=== PATIENT | male | born 1940 | race Caucasian/White ===

== ENCOUNTER 2024-01-26 08:51 | Inpatient (IN) | payer OTHER, SELFPAY ==
--- NOTE | 2023-12-21 13:19 | CM ---
Patient is scheduled for an elective L TKR on 01/26/24. Spoke with patient prior to surgery via telephone. Introduced role of Orthopedic Navigator. Patient reports that he lives with his in a two story home. There are six (3-3) steps to enter
and a flight of steps to the second floor. He currently functions independently and occasionally uses a cane. He also has a rolling walker, commode and built in shower seat. He has had VN services. PCP is Dr. Dread Arango.
Discussed orthopedic program and post surgical plans. Reviewed anticipated length of stay and that goal is for him to return home at discharge. Also reviewed outpatient PT. Patient is in agreement with tentative plan and will go directly to
outpatient PT at [facility]. He will have support from his when he goes home.
Patient will complete online education.
Plan: Orthopedic Navigator will remain available to assist with the care of patient and will reassess discharge needs after surgery.
[2024-01-02 14:03] VITALS: BMI 33.5
[2024-01-02 14:42] LABS: Hematocrit 37.7 % (39.0-52.0); Hemoglobin 12.4 g/dL (13.0-18.0); Mean Corp Hgb Conc. 32.9 g/dL (33.0-37.0); Mean Corpuscular Hgb 33.4 pg (27.0-31.0); Mean Corpuscular Volume 101.6 fL (80.0-94.0); Mean Platelet Volume 9.7 fL (7.4-10.4); Platelet Count 162 10^3/uL (130-400); Red Blood Cell Count 3.71 10^6/uL (4.70-6.10); Red Cell Dist. Width 13.8 % (11.5-14.5); White Blood Cell Count 7.8 10^3/uL (4.8-10.8)
[2024-01-02 14:55] LABS: ALT (SGPT) 29 U/L (0-50); AST (SGOT) 32 U/L (17-59); Albumin 4.4 g/dl (3.5-5.0); Alkaline Phosphatase 60 U/L (38-126); Blood Urea Nitrogen 27 mg/dl (9-20); Calcium 10.2 mg/dl (8.4-10.2); Carbon Dioxide 24 mmol/L (22-30); Chloride 104 mmol/L (98-107); Estimated Creatinine Clearance 62 ml/min; Glucose 90 mg/dl (70-99); Potassium 4.6 mmol/L (3.5-5.1); Sodium 139 mmol/L (135-145); Total Bilirubin 0.5 mg/dl (0.2-1.3); Total Protein 7.3 g/dl (6.3-8.2); eGFR > 60.00
[2024-01-02 15:23] VITALS: BMI 33.5
[2024-01-03 08:56] LABS: Glycohemoglobin (HgbA1c) 6.1 % (4.0-5.6)
[2024-01-26] VITALS (34 sets, daily range): BP systolic 66–114; BP diastolic 38–69; PULSE 60; O2SAT 96; BMI 33.5
[2024-01-26] MEDS: TYLENOL 650 MG PO ×4 (09:09→19:54)
[2024-01-26] MEDS: NORMOSOL-R 1000 IV ×2 (09:09→14:14)
[2024-01-26] MEDS: BACTROBAN NASAL 1 GRAM NASAL (09:09)
[2024-01-26] MEDS: CELEBREX 200 MG PO (09:09)
[2024-01-26 11:33] LABS: Glucose - Point of Care 106 mg/dl (70-99)
[2024-01-26] MEDS: DILAUDID 0.25 MG IV ×3 (12:35→13:35)
--- NOTE | 2024-01-26 15:16 | W.PN.UPDATE ---
Update Note
Progress Note Update
Patient doing well s/p LTKR. VSS. Pulm: nonlabored. CV:regular. LLE: Dressing CDI. NVI distally. Calf soft. Able to fully extend. Postop xray as expected. DVT prophylaxis ordered. Plan for discharge tomorrow with PT on Tuesday.
--- NOTE | 2024-01-26 15:17 | W.PN.UPDATE ---
Update Note
Progress Note Update
L knee OA s/p L TKA w/ Dr Tobar 01/26/24
- s/p L SHIRA, 2005, R SHIRA, 2011, and Kvng QUEEN, 2018 at an outside facility
DVT prophylaxis - Eliquis at modified dosing, b/l venous foot pumps
- Will resume home dose of Eliquis on POD 5 or sooner if surgeon advises
HTN - + parameters - monitor BP
CAD/ND, status post PCI with DOUG to LAD 07/2017
Recurrent atrial fibrillation, status post remote ablation and cardioversion
PACs and PVCs, asymptomatic
Supraventricular tachycardia
Right bundle branch block
Sick sinus syndrome, status post pacemaker insertion
- Monitor on tele
- Continue Toprol-XL
- Resume Eliquis as stated above
CHF, mrEF and ischemic cardiomyopathy, recovered - reduce hourly IVF rate to avoid fluid overload
COPD and LUCIUS, compliant with CPAP (setting 15) - monitor O2
- IS
- Resume inhalers
- Resume CPAP HS
GERD - add Pepcid HS
CVA, 2011, without residual deficits - resume Eliquis as stated above
Balance difficulties - on fall precautions
BPH per records - monitor voids
- Add daily Flomax during admission
Chronic mild anemia - non-invasive hgb in AM
Hyperlipidemia
Left carotid artery stenosis, status post left carotid endarterectomy 2017
Peripheral vascular disease
Status post mitral valve replacement and tricuspid valve ring annuloplasty 2018
Lumbosacral stenosis
Scoliosis.
Overactive bladder
Remote right retinal detachment
Anxiety
Depression
Hearing impairment bilaterally
Prediabetes, A1c 6.1
Obesity, BMI 33.5
Remote history of tobacco abuse
--- NOTE | 2024-01-26 15:20 | PTCARENOTE ---
Pt arrived to [facility] from PACU s/p L TKR. AAOx2-confused with marah, NV intact, L knee aquacel with small amount of drainage. IVF infusing, on 2L NC satting 97%. Pt states no pain at this time. Pt and oriented to call samson and room, bed
locked and in lowest position, call samson within reach.
[2024-01-26] MEDS: FLOMAX PO (16:12)
[2024-01-26] MEDS: JARDIANCE 10 MG PO (17:08)
[2024-01-26] MEDS: BUSPAR 15 MG PO ×2 (17:08→21:33)
[2024-01-26] MEDS: ANCEF 5 IV (17:08)
[2024-01-26] MEDS: CRESTOR 40 MG PO (17:08)
[2024-01-26] MEDS: DETROL 2 MG PO (19:54)
[2024-01-26] MEDS: TOPROL XL PO (19:55)
[2024-01-26] MEDS: COLACE 100 MG PO (19:55)
[2024-01-26] MEDS: DECADRON 4 MG PO (19:55)
[2024-01-26] MEDS: SENOKOT 17.1999999999999993 MG PO (19:55)
[2024-01-26] MEDS: BACTROBAN 2% OINTMENT 1 APPLIC NASAL (19:55)
[2024-01-26] MEDS: ELIQUIS 2.5 MG PO (19:55)
[2024-01-26] MEDS: ATIVAN 0.5 MG PO (21:33)
[2024-01-26] MEDS: LEXAPRO 20 MG PO (21:33)
[2024-01-26] MEDS: TYLENOL PO (23:30)
[2024-01-27] MEDS: ANCEF 5 IV (01:32)
[2024-01-27 03:29] VITALS: BP 94/53
[2024-01-27] MEDS: TYLENOL PO (04:46)
[2024-01-27 06:00] VITALS: BMI 33.0
--- NOTE | 2024-01-27 07:39 | W.PN.ORTHO ---
Today's Communication / Plan
-
Plan for discharge home today. Modified eliquis for DVT prophylaxis
Assessment
.
Distal Motor Intact: Yes
Dressing:
Clean, dry and intact.
Assessment:
Doing well postop
Plan
.
Surgery / Date: 01/26/2024 Amadou LTKR
DVT Prophylaxis: Other
Activity:
Out of bed.
PT/OT
Discharge Plan: Home w/ Outpatient PT
Subjective
.
.:
Patient resting comfortably. OOB today in a chair
Vital Signs and Labs
.
Vital Signs and Labs:
Lab Results
01/02/24 13:54
01/02/24 13:54
Temp Pulse Resp BP Pulse Ox
97.7 F 62 16 94/53 94
01/27/24 03:29 01/27/24 03:29 01/27/24 03:29 01/27/24 03:29 01/27/24 03:29
Non-invasive Hgb result: 11.8
Physical Exam
-
Pulm: nonlabored
CV: regular
LLE: Dressing CDI. NVI distally. Calf soft. Able to fully extend and flexes to 90 degrees
--- NOTE | 2024-01-27 08:03 | W.DCSUMMARY ---
Discharge Summary
Discharge Data
Date of Admission: 01/26/24
Date of Discharge: 01/27/24
-
Pending Results: No
Hospital Course
The patient underwent left total knee arthroplasty with Dr. Tobar without complications. The patient recovered in the PACU and was transferred to the floor. The postoperative course remained uncomplicated. At the time of discharge, the patient
was noted to be tolerating a regular diet, ambulating with adherence to weightbearing and activity restrictions, able to accomplish activities of daily living at baseline level, and had pain controlled on oral medications. Prior to discharge, the
patient was provided with appropriate discharge/follow-up/return instructions, and discharge medications.
He will take a modified dosing of Eliquis of 2.5 mg twice daily until postoperative day 5 at which point he resume his normal dosing of Eliquis
Discharge Plan
-
Patient Disposition: Home (Routine Discharge)
Discharge Diagnosis/Procedures: L knee OA s/p TKA w/ Dr Tobar 01/26/24
Condition: Good
Diet: Regular
Activity: As tolerated and With Walker
Driving Restrictions: Not until seen by your Dr
Bathing Restrictions: OK to Shower
Other Services: PT
Wound Care: Dressing to be removed 1 week post-surgery. Kylah to be removed at 2 week follow-up with surgeon's office.
Specialty Instructions: Weigh Daily- Call MD for wt gain/loss 3 lbs overnight/5 lbs in 1 week
Stand Alone Forms: Total Hip/Knee Replacement D/C
Referrals:
[facility], outpatient PT [Other] - 01/30/24
Choco Tobar MD [Active] - in two weeks (Call office to schedule appointment)
Dread Arango MD [Family Provider] -
Prescriptions:
New
mupirocin 2 % ointment
1 applic intranasal BID Qty: 1 0RF
hydromorphone 4 mg Tablet
4 mg PO Q4HPRN PRN (Reason: severe pain) Qty: 20 0RF
Rx Instructions:
Dr. Zendejas [facility] [id number]
Continuing therapy
acetaminophen 325 mg Tablet
650 mg PO Q4HWA Qty: 60 0RF
Eliquis 2.5 mg Tablet
2.5 mg PO BID Qty: 7 0RF
dexamethasone 4 mg Tablet
4 mg PO BID Qty: 7 0RF
docusate sodium 100 mg Capsule
100 mg PO BID Qty: 30 0RF
sennosides [Senna Laxative] 8.6 mg Tablet
17.2 mg PO BID Qty: 30 0RF
Continued
metoprolol succinate 25 MG tablet extended release 24 hr
25 mg PO BID
albuterol sulfate [Proventil HFA] 90 MCG/PUFF HFA aerosol inhaler
2 puff inhalation Q6HPRN PRN (Reason: SOB)
lorazepam 0.5 mg Tablet
0.5 mg PO DAILY PRN (Reason: anxiety)
azelastine 0.05 % Drops
1 drp BOTH EYES Q12H
famotidine [Pepcid] 40 mg Tablet
40 mg PO DAILY
buspirone 15 mg Tablet
15 mg PO TID
apixaban 5 mg Tablet
5 mg PO BID
Jardiance 10 mg Tablet
10 mg PO DAILY
tolterodine 2 mg Tablet
2 mg PO BID
triamcinolone acetonide 55 mcg Aerosol,Kerrick
2 spray INTRANASAL DAILY
furosemide 20 mg Tablet
20 mg PO DAILY
azelastine 137 mcg (0.1 %) Aerosol,Kerrick
1 spray INTRANASAL BID
escitalopram oxalate [Lexapro] 20 mg Tablet
20 mg PO DAILY
rosuvastatin 40 mg Tablet
40 mg PO QPM
Entresto 97-103 mg Tablet
1 tab PO BID
multivitamin
1 tab PO DAILY
Discharge Orders:
Discharge Patient (As Directed); Ordered 01/27/24
Ordered By: German Emmanuel
Discharge Date and Time
Print Language: SYRIAC
[2024-01-27] MEDS: BACTROBAN 2% OINTMENT 1 APPLIC NASAL (08:17)
[2024-01-27] MEDS: COLACE 100 MG PO (08:18)
[2024-01-27] MEDS: SENOKOT 17.1999999999999993 MG PO (08:18)
[2024-01-27] MEDS: TYLENOL 650 MG PO (08:18)
[2024-01-27] MEDS: TOPROL XL 25 MG PO (08:19)
[2024-01-27] MEDS: ELIQUIS 2.5 MG PO (08:20)
[2024-01-27] MEDS: BUSPAR 15 MG PO (08:20)
[2024-01-27] MEDS: JARDIANCE 10 MG PO (08:20)
[2024-01-27] MEDS: PEPCID 40 MG PO (08:20)
[2024-01-27] MEDS: FLOMAX 0.400000000000000022 MG PO (08:20)
[2024-01-27] MEDS: DETROL 2 MG PO (08:20)
[2024-01-27] MEDS: DECADRON 4 MG PO (08:20)
[2024-01-27 08:22] VITALS: BP 139/95
--- NOTE | 2024-01-27 08:30 | CM ---
Addendum entered by Clarice Robles 01/27/24 10:59:
Patient did well in therapy. he has no concerns about going home and has updated his .
Original Note:
Reviewed chart and held rounds with PT, OT and nursing. Patient admitted as planned for elective L TKR. Met with patient at bedside. Confirmed information previously obtained for assessment. Also discussed discharge plans. The plan is for patient to
return home at discharge. He will have support from his when he goes home. Patient will go directly to outpatient PT and will go to [facility]. He has an appointment scheduled for Tuesday, 01/29.
Patient has a rolling walker, cane and commode.
He will use [facility] pharmacy for discharge prescriptions.
[2024-01-27 09:25] VITALS: BP 109/42; PULSE 61; O2SAT 96
[2024-01-27 10:58] VITALS: BP 113/44; PULSE 61; O2SAT 96
== END 2024-01-27 11:49 | disposition home or self-care (01) | DRG 470 ==
LOC: 2 SOUTH 08:51
PROVIDERS: ADMITTING PHYSICIAN Orthopaedic Surgery; FAMILY PHYSICIAN Internal Medicine
PROC: 0SRD0J9 Replacement of Left Knee Joint with Synthetic Substitute, Cemented, Open Approach (ICD-10-PCS; 2024-01-27)
DX: M17.12 Unilateral primary osteoarthritis, left knee (principal)
CPT/HCPCS: 36415; 71045; 73560; 80053; 82962; 83036; 85027; 87070; 93005; 97110; 97116; 97162; 97166; 97530

== ENCOUNTER 2024-06-14 19:50 | Inpatient (IN) | payer OTHER, SELFPAY ==
[2024-06-14] VITALS (10 sets, daily range): BP systolic 78–103; BP diastolic 47–80; BMI 30.8; BMI 30.2
--- NOTE | 2024-06-14 17:58 | ED.GENMED ---
History of Present Illness
General
Chief Complaint: Blood Pressure Problem
Source: patient and spouse
Exam Limitations: none
Time Seen by Provider: 06/14/24 17:33
Nursing documentation reviewed up to this point in time: agreed with
History of Present Illness
History of Present Illness:
84-year-old male presents emergency room complaining of having a cold, being exposed to his who has COVID. He went to see his primary care doctor but his blood pressure was low and he was sent to the emergency department. He has been coughing.
Past History
Past History
ED Past Medical History: Arrthythmia (Atrial fibrillation, SVT), CAD (Cardiomyopathy, CAD, heart murmur), CHF, COPD, HTN, Hypercholesterolemia, MA and Psychiatric
ED Past Surgical History: Cardiac (Stents, Mitral valve replacement)
Social History
Tobacco: Former smoker
Alcohol: Occasional
Personal:
Living: with family
Review of Systems
Review of Systems
Allergies reviewed?: Yes
All Other Systems: Not applicable
Constitutional: Reports no symptoms
EENT: Reports no symptoms
Respiratory: Reports cough and trouble breathing
Cardiac: Reports no symptoms
ABD/GI: Reports no symptoms
: Reports no symptoms
Musculoskeletal: Reports no symptoms
Skin: Reports no symptoms
Neurological: Reports no symptoms
Endocrine: Reports no symptoms
Hematologic/Lymphatic: Reports no symptoms
Psychiatric: Reports no symptoms
Phy Exam
Physical Exam
Physical Exam:
Physical Exam
General: BP 89/47
Neck: supple. no meningeal signs. normal posterior pharynx
Heart: s1/s2 regular rate and rhythm, no murmur. equal radial
pulses. Pacemaker
HEENT: Pupils equal round reactive to light, EOMI
Lungs: no acute respiratory distress. clear bilaterally
Abdomen: normal bowel sounds. not tender. no CVAT
Neuro: alert and oriented. no focal neurological deficits cranial nerves II through XII intact
Skin: no rash
Psychiatric: well kept. interactive and cooperative
Extremities: no edema. no calf tenderness. negative homans. good distal pulses
Course
Orders/Labs/Results
Orders:
Orders
06/14/24 Breakfast
Cholesterol Lowering
At Your Request: Full Participation
Cholesterol Lowering: Sodium, 2 Gram
06/14/24 17:29
Electrocardiogram (*1) Urgent
Reason for Study: Fatigue / Weakness
EKG- Treatment ONCE
06/14/24 17:42
COVID-19 Antigen Urgent
Source: Nasal Swab
Complete Blood Count/With Diff Urgent
Comprehensive Metabolic Panel Urgent
NT-proBNP Urgent
Comment: ADD ON
Troponin I Urgent
Influenza A+B Rapid Molecular Urgent
MODE Source: Nasal Swab
Specimen Description:
06/14/24 17:52
Add On- LAB Urgent
Tests Added?: pro-BNP
06/14/24 18:08
Lactic Acid Q4H
Comment: CANCEL 2nd LACTIC ACID IF 1st LACTIC ACID IS LESS THAN 2
06/14/24 18:22
CR Chest Portable - 1 View Urgent
Comment:
Reason For Exam: cough, covid
Reason Study Needs to be Portable: Patient Unstable
06/14/24 18:31
0.9% Sodium Chloride 500 ml [Nss] 500 ml IV BOLUS
06/14/24 18:55
Acetaminophen [Tylenol] 650 mg .ROUTE .STK-MED ONE
06/14/24 18:57
Acetaminophen [Tylenol] 650 mg PO NOW STA
06/14/24 19:07
Admit/Transfer Patient As Directed
Co-Sign Provider:
Level of Care: Inpatient admission
Assign to:: IMU- Intermediate Care
Physician / Group: sofia
Diagnosis: hypotension
Reason for Hospitalization: hypotension
Expected length of stay greater than two midnights?: Yes
ELOS- Estimated Length of Stay in days: 3
I certify the patient meets the requirements for IP care: Yes
06/14/24 19:08
PRN Pain Medication Management As Directed
May give lesser potent ordered pain med per pt: Yes
preference::
Protocol:: Medication orders for pain may be administered in a
manner that supports deferring to patient preference
when the pt is:
- Requesting an ordered lesser potent pain medication.
Least to most potent pain medications are defined
as: acetaminophen < NSAID < tramadol < opioids
(morphine, oxycodone, hydromorphone).
- Requesting a lesser dose of the same medication IF
ORDERED.
- Requesting a less intrusive route of administration
if both routes are prescribed by the provider (PO <
IV).
06/14/24 19:10
Code Status As Directed
Resuscitation Status: Do not resuscitate
Reached after discussion with pt or family/Healthcare POA: Yes
DNR Bracelet Application ONCE
06/14/24 19:50
0.9% Sodium Chloride 250 ml [Nss] 250 ml IV BOLUS
06/14/24 21:07
0.9% Sodium Chloride 1000 ml [Nss] 1,000 ml IV 100 mls/hr
Albuterol [ProAIR HFA INHALER] 2 puff INH R Q6HPRN PRN
Apixaban [Eliquis] 5 mg PO BID
Bisacodyl [Dulcolax] 10 mg RECTAL [id number] PRN
Docusate W/Senna [Senokot-S] 1 tablet PO BIDPRN PRN
Lorazepam [Ativan] 0.5 mg PO DAILYPRN PRN
Metoprolol Xl [Toprol Xl] 25 mg PO BID
Nirmatrelvir/Ritonavir [Paxlovid 150-100 mg Dose Pack] 1 dose PO BID
Polyethylene Glycol Powder [Miralax] 17 grams PO DAILYPRN PRN
azelastine 1 drop BOTH EYES Q12H
azelastine 1 spray NASAL BID
06/14/24 21:07
Activity As Directed
Activity Level: As Tolerated
Intake/ Output As Directed
Frequency: Per unit guidelines
Vital Signs As Directed
Frequency: Per unit guidelines
Weight As Directed
Frequency: Daily
06/14/24 22:00
Buspirone [Buspar] 15 mg PO TID
06/15/24 06:00
Basic Metabolic Panel IN AM
Complete Blood Count/No Diff IN AM
06/15/24 08:00
Escitalopram Oxalate [Lexapro] 20 mg PO DAILY
Famotidine [Pepcid] 40 mg PO DAILY
06/16/24 06:00
Basic Metabolic Panel IN AM
Complete Blood Count/No Diff IN AM
06/16/24 08:00
Furosemide [Lasix] 20 mg PO [id number]@0800
06/17/24 06:00
Basic Metabolic Panel IN AM
Abnormal Lab Results
06/14/24
17:42
RBC 3.26 L 10^6/uL
(4.70-6.10)
Hgb 10.8 L g/dL
(13.0-18.0)
Hct 32.3 L %
(39.0-52.0)
MCV 99.1 H fL
(80.0-94.0)
MCH 33.1 H pg
(27.0-31.0)
Absolute Monos (auto) 0.8 H 10^3/uL
(0.1-0.6)
Monocytes % 12.8 H %
(1.7-9.3)
BUN 34 H mg/dl
(9-20)
Creatinine 1.7 H mg/dL
(0.7-1.3)
SARS-CoV-2 Antigen Positive A
(Negative)
06/14/24 17:42
06/14/24 17:42
Vital Signs
Initial and Last Documented VS:
Initial Vital Signs
Temp Pulse BP Pulse Ox
97.6 F 60 89/47 97
06/14/24 17:12 06/14/24 17:12 06/14/24 17:12 06/14/24 17:12
Last Documented Vital Signs
Temp Pulse Resp BP Pulse Ox
97.6 F 61 21 94/56 95
06/14/24 17:12 06/14/24 20:45 06/14/24 20:00 06/14/24 20:30 06/14/24 20:45
MDM/Problems Addressed
Differential Diagnosis Includes:
COVID pneumonia, respiratory insufficiency, acute kidney injury
MDM/Problems Addressed:
82-year-old male with respiratory insufficiency, acute kidney injury, COVID, chronic CHF. Admit to hospitalist. 500 mL bolus normal saline given.
Chronic conditions affecting care: HTN, Cardiomyopathy, Arrhythmia and COPD
Acute Exacerbation and/or Progression of Chronic Illness: Cardiomyopathy, Arrhythmia and COPD
*Radiology
Radiology exam reviewed: radiology read reviewed (Chest x-ray shows mild interstitial edema)
*Pulse Oximetry
Patient hypoxic: yes
*EKG
Interpreted by ED Provider?: Yes
EKG Intrepretation Date: 06/14/24
EKG Intrepretation Time: 17:33
Interpretation: abnormal
Comparison EKG: no changes
Heart Rate: 60
Rate: normal
Rhythm: av sequential
[place]: normal axis
Interval: normal interval
QRS Pattern: right bundle branch block
Ischemia: no ischemia
*Database Marketing Analyst Interpretation
Rate: normal
Interpretation: abnormal
Heart Rate: 60
Rhythm: av sequential
*Critical Care Note
Total Time (30-74mins, 75-104mins- exclusive of procedures): 30
comment:
Critical care statement: A total of 30 minutes of critical care time was provided for this patient. This includes management of unstable vital signs, evaluation of the patient at bedside, reviewing the patient's pertinent medical records, discussion
with consultants, review of old EKGs and review of pertinent medical records. This time with separate from time utilized to perform the aforementioned documented procedures
Data Reviewed
Review of Other/Old Records Reveals: Labs (Creatinine 1.1 on 01/02/2024)
Source: records
Patient Management
Social determinants of health affecting care: Living situation
Discussion with other providers: Hospitalist
Escalation/DeEscalation of care consider admission/obs:
Admit indicated
ED Attending Note
-
Portions of this chart may have been created with voice recognition software.� Occasional wrong word or��sound alike� substitutions may have occurred due to the inherent limitations of voice recognition software.
Discharge Plan
Departure
Patient Disposition: Admit
Date of Disposition: 06/14/24
Time of Disposition: 18:35
Admit to: IMU
Presentation/result/management discussed w/ accepting MD/DO: Hospitalist
Patient with high blood pressure during this ER visit?: No
Covid-19: Confirmed COVID-19
Discharge Problem:
Acute kidney insufficiency, COVID-19, Hypovolemia associated with diuresis
Interventions
Interventions:
*Risk Screen - Suicide Last Done: 06/14/24 17:21
*General Assessment Last Done: 06/14/24 17:21
*Neglect/Abuse Screening Last Done: 06/14/24 17:21
ED- Fall Risk Assessment Last Done: 06/14/24 18:17
*ED COVID-19 Vaccine History Last Done: 06/14/24 17:20
*Nursing Disposition Last Done: 06/14/24 21:11
ED- Cardiac Assessment Last Done: 06/14/24 18:17
ED- Neurological Assessment Last Done: 06/14/24 18:17
ED- Pulmonary Assessment Last Done: 06/14/24 18:17
Discharge Date and Time
Discharge Date/Time: 06/14/24 21:12
[2024-06-14 18:02] LABS: % Basophils 0.3 % (0-2); % Eosinophils 1.5 % (0-6); % Immature Granulocytes 0.3 % (0-0.5); % Lymphocytes 23.2 % (20.5-51.1); % Monocytes 12.8 % (1.7-9.3); % Neutrophils 61.9 % (42.2-75.2); Absolute Eosinophils 0.1 10^3/uL (0-0.7); Absolute Lymphocytes 1.4 10^3/uL (1.2-3.4); Absolute Monocytes 0.8 10^3/uL (0.1-0.6); Absolute Neutrophils 3.8 10^3/uL (1.4-6.5); Hematocrit 32.3 % (39.0-52.0); Hemoglobin 10.8 g/dL (13.0-18.0); Mean Corp Hgb Conc. 33.4 g/dL (33.0-37.0); Mean Corpuscular Hgb 33.1 pg (27.0-31.0); Mean Corpuscular Volume 99.1 fL (80.0-94.0); Mean Platelet Volume 9.5 fL (7.4-10.4); Nucleated Red Blood Cells % 0 % (-); Platelet Count 135 10^3/uL (130-400); Red Blood Cell Count 3.26 10^6/uL (4.70-6.10); Red Cell Dist. Width 13.8 % (11.5-14.5); White Blood Cell Count 6.1 10^3/uL (4.8-10.8)
[2024-06-14 18:08] LABS: COVID-19 Antigen Positive (Negative)
[2024-06-14 18:18] LABS: ALT (SGPT) 15 U/L (0-50); AST (SGOT) 24 U/L (17-59); Albumin 4.2 g/dl (3.5-5.0); Alkaline Phosphatase 49 U/L (38-126); Blood Urea Nitrogen 34 mg/dl (9-20); Calcium 9.9 mg/dl (8.4-10.2); Carbon Dioxide 25 mmol/L (22-30); Estimated Creatinine Clearance 40 ml/min; Glucose 99 mg/dl (70-99); Total Bilirubin 0.2 mg/dl (0.2-1.3); Total Protein 6.6 g/dl (6.3-8.2); eGFR 39.75
[2024-06-14 18:28] LABS: Lactic Acid 1.4 mmol/L (0.7-2.0)
[2024-06-14 18:29] LABS: Chloride 102 mmol/L (98-107); NT-proBNP 2030 pg/ml; Potassium 4.5 mmol/L (3.5-5.1); Sodium 139 mmol/L (135-145); Troponin I 0.022 ng/ml
[2024-06-14] MEDS: NSS 500 IV (18:35)
--- NOTE | 2024-06-14 18:43 | HPS.HSE ---
Family Physician
-
Family Physician: Dread Arango MD
Chief Complaint
-
cough, generalized body ache.
History of Present Illness
84-year-old male with PMH for A-fib, anxiety, heart failure, depression, GERD, hyperlipidemia, BPH presented to us with generalized body ache, congestion, cough with clear sputum for 1 week. . his was tested positive for COVID yesterday. He
went to his PCP to get tested for COVID.patient was noted hypotensive . He was sent to the ER for further evaluation presents emergency room. denied MORELAND, dizzy or syncopal episode. denied abdominal pain, nausea, vomiting, diarrhea. Patient denied
dysuria hematuria.
Patient received a dose of Tylenol, normal saline in ER. Admitting for further management
Medical History
Past Medical History
Past Medical History: Reports Other
Additional Past Medical History:
Hypertension
Hyperlipidemia
A-fib
COPD
Anxiety CHF
MRI
Past Surgical History: Reports Other
Additional Past Surgical History:
Mitral valve replacement
Cardiac stents
Social History
Tobacco: Non-smoker
Alcohol: None
Drug: None
Personal:
Living: With Family
Family History
Family History: Not pertinent
Allergies / Home Medications
Allergies reflects when Allergies were last updated in [facility].
Home Medications with original date entered in [facility]
Allergy/Medication List:
Allergies
Allergy/AdvReac Type Severity Reaction Status Date / Time
acetaminophen [From Percocet] Allergy hallucinati Verified 06/14/24 17:30
on
midazolam [From Versed] Allergy hallucinati Verified 06/14/24 17:30
on
oxycodone [From Percocet] Allergy hallucinati Verified 06/14/24 17:30
on
Home Medications
metoprolol succinate 25 mg tablet,extended release 24 hr 25 mg PO BID Blood Pressure 05/19/18
apixaban 5 mg tablet 5 mg PO BID Blood clot prevention/tx 07/30/22
azelastine 0.05 % eye drops 1 drp BOTH EYES Q12H Allergies 07/30/22
buspirone 15 mg tablet 15 mg PO TID Mental Health/Anxiety 07/30/22
empagliflozin 10 mg tablet (Jardiance) 10 mg PO DAILY Heart Failure 07/30/22
famotidine 40 mg tablet (Pepcid) 40 mg PO DAILY Gastrointestinal issue 07/30/22
lorazepam 0.5 mg tablet 0.5 mg PO DAILYPRN PRN anxiety 07/30/22
azelastine 137 mcg (0.1 %) nasal spray 1 spray intranasal BID Allergies 12/29/23
escitalopram oxalate 20 mg tablet (Lexapro) 20 mg PO DAILY Depression 12/29/23
furosemide 20 mg tablet 20 mg PO MOWESA Fluid Retention/Swelling 12/29/23
rosuvastatin 40 mg tablet 40 mg PO HS High Cholesterol 12/29/23
sacubitril 97 mg-valsartan 103 mg tablet (Entresto) 1 tab PO BID Heart Failure 12/29/23
therapeutic multivitamin 1 tab PO DAILY Supplement ##0 12/29/23
tolterodine 2 mg tablet 2 mg PO BID Urinary Issue 12/29/23
triamcinolone acetonide 55 mcg nasal spray aerosol 2 spray intranasal DAILY Allergies 12/29/23
albuterol sulfate 90 mcg/actuation aerosol inhaler 2 puff inhalation R Q6HPRN PRN sob/wheezing 06/14/24
Review of Systems
-
Constitutional: Reports No Symptoms
EENT: Reports No Symptoms and Runny Nose
Respiratory: Reports Cough and Other
Cardiac: Reports No Symptoms
Abdomen/GI: Reports No Symptoms
: Reports No Symptoms
Musculoskeletal: Reports No Symptoms
Skin: Reports No Symptoms
Neurological: Reports No Symptoms
Endocrine: Reports No Symptoms
Hematologic/Lymphatic: Reports No Symptoms
Psych: Reports No Symptoms
Physical Exam
Vital Signs
Vital Signs
Temp Pulse Resp BP Pulse Ox
97.6 F 60 19 89/49 94
06/14/24 17:12 06/14/24 18:15 06/14/24 18:15 06/14/24 18:00 06/14/24 18:17
Physical Exam
General: Well Developed, Well Nourished and No Apparent Distress
HEENT: NormoCephalic, Moist mucous membranes and Atraumatic
Respiratory: Clear
Cardiac: S1/S2 and Regular Rhythm; No Murmur or Rub
GI: Soft, Non Tender, Non Distended and Normal Bowel Sounds; No Organomegaly
Rectal: Deferred by Provider
Musculoskeletal: No Clubbing, No Cyanosis and No Edema
Skin: No Rash
Neuro: AO x 3 and Nonfocal/grossly intact
Psych: Calm
Laboratory Results
-
06/14/24 17:42
06/14/24 17:42
Laboratory Results
Lactic Acid 1.4 mmol/L (0.7-2.0) 06/14/24 18:08
Total Bilirubin 0.2 mg/dl (0.2-1.3) 06/14/24 17:42
AST 24 U/L (17-59) 06/14/24 17:42
ALT 15 U/L (0-50) 06/14/24 17:42
Alkaline Phosphatase 49 U/L (38-126) 06/14/24 17:42
Troponin I 0.022 ng/ml 06/14/24 17:42
Data Reviewed
-
Diagnostic Radiology: Report Reviewed by me
Lab Data: Labs Reviewed by me
Impression/Plan
-
# Acute COVID infection
-Paxlovid
-oxygenating very well on room air
# Hypotension
-Fluids continued
-Continue to monitor the blood pressure
-Hold hypertensive medications until blood pressure improved
# Acute kidney injury likely dehydration
-Creatinine 1.7
-Fluids continued
-BMP in a.m.
# Anemia of chronic disease
-Hemoglobin stable at 10.8
-No active bleeding
Continue to monitor
Paroxysmal atrial fibrillation
-EKG shows right bundle branch block
-Continue Eliquis
-Continue metoprolol with hold parameters
#Coronary artery disease status post stents
#History of heart failure with intermediate ejection fraction
-ejection fraction 50% in November
-Hold Lasix
-Entresto,Jardiance held
#Mitral valve replacement
#COPD
-Continue inhalers, montelukast
Obstructive sleep apnea
Essential hypertension
Hyperlipidemia
-Continue statin
#Anxiety/depression
-Continue buspirone, continue Ativan and escitalopram
# GERD
-PPI continued
# BPH
-Ditropan continued
DNR
DVT prophylaxis�Eliquis
Regular diet
[2024-06-14] MEDS: TYLENOL 650 MG PO (18:57)
--- NOTE | 2024-06-14 19:10 | W.PN.UPDATE ---
Update Note
Progress Note Update
This is an addendum to the H&P written by Ashley Mujica on 06/14/2024. Patient seen and examined independently with SERVICE INSPECTOR.
84-year-old male past medical history of atrial fibrillation on Eliquis, CHF, CAD status post, mitral replacement, COPD, sleep apnea on CPAP, hyperlipidemia, GERD here for COVID infection with symptoms of chills, weakness, decreased p.o. intake and
cough for the past week.
Patient is COVID-positive. Blood pressure here 80s systolic. Labs show CLIVE. Patient is not hypoxic. Hold nephrotoxic/antihypertensive medications. IV fluids. No indication to start steroid currently. Start Paxlovid if approved by pharmacy.
[2024-06-14] MEDS: FLUSH (NSS) 1 FLUSH IV (20:08)
[2024-06-14] MEDS: NSS 250 IV (20:09)
[2024-06-14] MEDS: NSS 1000 IV (21:28)
--- NOTE | 2024-06-14 21:45 | PTCARENOTE ---
Addendum entered by Randi Ulrich RN 06/15/24 00:59:
Pt tolerating getting OOB to [facility] with stand by.
Original Note:
Pt arrived on stretcher from ED. Pt AAOX3. Pt on RA spo2 94%. Pt KLUTI KAAH, hearing aids are at home. Pt uses CPAP at home and will have bring in to use at HS. Pt BP remaining stable at this time. All other vitals stable at this time. Pt has no
complaints at this time. Call samson with in reach. Assessment care and vitals as charted.
[2024-06-14] MEDS: ELIQUIS 5 MG PO (23:04)
[2024-06-14] MEDS: BUSPAR 15 MG PO (23:04)
[2024-06-14] MEDS: TOPROL XL PO (23:04)
[2024-06-15] VITALS (17 sets, daily range): BP systolic 102–124; BP diastolic 36–96; PULSE 64; O2SAT 95; BMI 30.2; BMI 30.6
[2024-06-15 04:49] LABS: Hematocrit 31.6 % (39.0-52.0); Hemoglobin 10.6 g/dL (13.0-18.0); Mean Corp Hgb Conc. 33.5 g/dL (33.0-37.0); Mean Corpuscular Hgb 33.3 pg (27.0-31.0); Mean Corpuscular Volume 99.4 fL (80.0-94.0); Mean Platelet Volume 9.2 fL (7.4-10.4); Platelet Count 131 10^3/uL (130-400); Red Blood Cell Count 3.18 10^6/uL (4.70-6.10); Red Cell Dist. Width 13.9 % (11.5-14.5); White Blood Cell Count 7.3 10^3/uL (4.8-10.8)
[2024-06-15 05:10] LABS: Blood Urea Nitrogen 31 mg/dl (9-20); Calcium 9.1 mg/dl (8.4-10.2); Carbon Dioxide 22 mmol/L (22-30); Chloride 105 mmol/L (98-107); Estimated Creatinine Clearance 49 ml/min; Glucose 96 mg/dl (70-99); Potassium 4.7 mmol/L (3.5-5.1); Sodium 140 mmol/L (135-145); eGFR 50.18
--- NOTE | 2024-06-15 08:00 | W.PN.HOSP.TC ---
Today's Communication/Plan
-
see A/P
Assessment / Plan
Assessment / Plan
84-year-old male past medical history of atrial fibrillation on Eliquis, CHF, CAD status post, mitral replacement, COPD, sleep apnea on CPAP, hyperlipidemia, GERD here for COVID infection with symptoms of chills, weakness, decreased p.o. intake and
cough for the past week.
Patient is COVID-positive. Blood pressure 80s systolic on admission. Labs show CLIVE. Patient was not hypoxic on admission
A/P:
# Sepsis POA 2/2 COVID infection
# Hypotension, improved
pt is mildly hypoxic, sat occasionally 88% on RA
will start Decadron 6 mg and RemD and monitor sat
s/p IVF for hypotension, BP improved, hold further IVF
# Acute kidney injury likely dehydration, improved
s/p IVF
Creatinine 1.7 on admission, today at 1.4
Follow BMP
# Anemia of chronic disease
Hemoglobin stable at 10.6 today
# Paroxysmal atrial fibrillation
EKG shows right bundle branch block
Continue Eliquis
Continue metoprolol with hold parameters
# Coronary artery disease status post stents
# History of heart failure with preserved ejection fraction
EF 50% in November
resume INSPECTOR ASSEMBLY Lasix with hold parameter
INSPECTOR ASSEMBLY Entresto,Jardiance held
# Mitral valve replacement
# COPD
Continue inhalers, montelukast
# Obstructive sleep apnea
# Essential hypertension
# Hyperlipidemia
Continue statin
# Anxiety/depression
Continue buspirone, continue Ativan and escitalopram
# GERD
PPI continued
# BPH
Ditropan continued
DNR
DVT prophylaxis�Eliquis
Regular diet
updated on the phone
total time spent 51 min
Anticipated Discharge: > 48 hours
Subjective/Interval History
-
Date of Service: June 15, 2024
Objective Data
-
Labs:
Laboratory Results
06/15/24
04:37
WBC 7.3
Hgb 10.6 L
Hct 31.6 L
Plt Count 131
Sodium 140
Potassium 4.7
Chloride 105
Carbon Dioxide 22
BUN 31 H
Creatinine 1.4 H
Glucose 96
Calcium 9.1
Vital Signs:
Vital Signs
Temp Pulse Resp BP Pulse Ox
37.2 C 61 16 103/53 92
06/15/24 07:30 06/15/24 06:00 06/15/24 06:00 06/15/24 05:51 06/15/24 06:00
I&O
06/14/24 06/15/24 06/16/24
06:59 06:59 06:59
Intake Total 1100 / 1100
Output Total 275 / 275
Balance 825 / 825
Review of Systems
-
All other systems: Reviewed and negative
Physical Exam
-
General: Well Developed, Well Nourished and Comfortable
HEENT: Normocephalic, Atraumatic and Moist Mucous Membranes
Respiratory: Clear to Auscultation and Non Labored Respirations; Negative Wheezes, Rales, Rhonchi or Accessory Resp Muscle Use
Cardiac: Regular Rhythm and S1/S2
GI: Soft, Nontender and Nondistended
Musculoskeletal: No Clubbing, No Cyanosis and No Edema
Neuro: Awake and Alert
Psych: Calm and Intact Judgement/Insight
Data Reviewed
-
Diagnostic Radiology: Report Reviewed by me
Labs: Labs Reviewed by me
[2024-06-15] MEDS: ELIQUIS 5 MG PO ×2 (09:12→20:09)
[2024-06-15] MEDS: PEPCID 20 MG PO (09:12)
[2024-06-15] MEDS: DECADRON 6 MG IV (09:13)
[2024-06-15] MEDS: BUSPAR 15 MG PO ×3 (09:13→20:09)
[2024-06-15] MEDS: LEXAPRO 20 MG PO (09:13)
[2024-06-15] MEDS: TOPROL XL PO ×2 (09:14→20:09)
[2024-06-15] MEDS: VEKLURY 250 MG IV (09:53)
--- NOTE | 2024-06-15 15:23 | PTCARENOTE ---
Patient AAOx3, HUSLIA. Bed alarm placed. VSS, RA. Patient up in chair for most of day. Continuing to closely monitor.
--- NOTE | 2024-06-15 16:21 | CM ---
construction engineering manager reviewed patient's chart and patient is currently on isolation, caser up spoke with patient's spouse who provided patient's social situation. Patient lives with spouse in a 2 story home, patient is independent with adl's and
ambulation. Patient has a cane, walker, w/c and commode in home.
PCP: Dr. Dread Arango
Pharmacy; [facility]
Plan Home with visiting nurses, patient's spouse has selected [facility] referral sent through [facility].
[facility]
[phone]
[2024-06-15] MEDS: TYLENOL 650 MG PO (20:10)
[2024-06-16] VITALS: BP 128/62
--- NOTE | 2024-06-16 01:02 | PTCARENOTE ---
assumed care of patient. pt is AAOx2 [place], able to make needs known. on RA 96%, pt placed on oxygen HS per his request d/t not using bipap here. pt able to walk into bathroom x1 RW without issues. care ongoing.
[2024-06-16 02:01] VITALS: BP 104/93
[2024-06-16 04:00] VITALS: BP 114/59
[2024-06-16 05:10] LABS: Hemoglobin 12.1 g/dL (13.0-18.0); Mean Corp Hgb Conc. 32.7 g/dL (33.0-37.0); Mean Corpuscular Volume 100.8 fL (80.0-94.0); Mean Platelet Volume 9.5 fL (7.4-10.4); Platelet Count 132 10^3/uL (130-400); Red Blood Cell Count 3.67 10^6/uL (4.70-6.10); Red Cell Dist. Width 13.6 % (11.5-14.5); White Blood Cell Count 6.3 10^3/uL (4.8-10.8)
[2024-06-16 05:25] LABS: Blood Urea Nitrogen 32 mg/dl (9-20); Calcium 9.8 mg/dl (8.4-10.2); Carbon Dioxide 18 mmol/L (22-30); Chloride 106 mmol/L (98-107); Estimated Creatinine Clearance 57 ml/min; Glucose 116 mg/dl (70-99); Potassium 4.4 mmol/L (3.5-5.1); Sodium 139 mmol/L (135-145); eGFR > 60.00
[2024-06-16 06:13] VITALS: BP 113/56
--- NOTE | 2024-06-16 07:31 | PTCARENOTE ---
this AM pt setting bed alarm off, pt angry, agitated and yelling at this RN because he can't go to the BR by himself. educated patient on need for staff help related to extra wires. pt not understanding, states he wants to leave today and to speak
to a doctor about leaving. advised patient MD will be in in the morning.
--- NOTE | 2024-06-16 07:44 | W.PN.HOSP.TC ---
Addendum entered and electronically signed by Mone Larsen MD 06/16/24 13:41:
total DC time 38 min
Original Note:
Today's Communication/Plan
-
DC home with HH
Assessment / Plan
Assessment / Plan
84-year-old male past medical history of atrial fibrillation on Eliquis, CHF, CAD status post, mitral replacement, COPD, sleep apnea on CPAP, hyperlipidemia, GERD here for COVID infection with symptoms of chills, weakness, decreased p.o. intake and
cough for the past week.
Patient is COVID-positive. Blood pressure 80s systolic on admission. Labs show CLIVE. Patient was not hypoxic on admission
A/P:
# Sepsis POA 2/2 COVID infection
# Hypotension, improved
pt was mildly hypoxic, sat was occasionally 88% on RA, hence was started RemD with Decadron
Sat improved to 96% on RA, will stop RemD, but can cont Decadron total 10 days
s/p IVF for hypotension, BP improved, hold further IVF
# Acute kidney injury likely dehydration, resolved
s/p IVF
Creatinine 1.7 on admission, today at 1.2; baseline SCr 1.1
Follow BMP
# Anemia of chronic disease
Hemoglobin stable at 12 today
# Paroxysmal atrial fibrillation
EKG shows right bundle branch block
Continue Eliquis
Continue metoprolol with hold parameters
# Coronary artery disease status post stents
# History of heart failure with preserved ejection fraction
EF 50% in November
resume FIELD MECHANIC Lasix with hold parameter
FIELD MECHANIC Entresto, Jardiance to be resumed
# Mitral valve replacement
# COPD
Continue inhalers, montelukast
# Obstructive sleep apnea
# Essential hypertension
# Hyperlipidemia
Continue statin
# Anxiety/depression
Continue buspirone, continue Ativan and escitalopram
# GERD
PPI continued
# BPH
Ditropan continued
DNR
DVT prophylaxis�Eliquis
Regular diet
updated on the phone
Anticipated Discharge: Today
Subjective/Interval History
-
Date of Service: June 16, 2024
Objective Data
-
Labs:
Laboratory Results
06/16/24
05:02
WBC 6.3
Hgb 12.1 L
Hct 37.0 L
Plt Count 132
Sodium 139
Potassium 4.4
Chloride 106
Carbon Dioxide 18 L
BUN 32 H
Creatinine 1.2
Glucose 116 H
Calcium 9.8
Vital Signs:
Vital Signs
Temp Pulse Resp BP Pulse Ox
35.8 C L 63 16 113/56 96
06/15/24 23:45 06/16/24 06:13 06/16/24 06:13 06/16/24 06:13 06/16/24 06:13
I&O
06/15/24 06/16/24 06/17/24
06:59 06:59 06:59
Intake Total 1100 / 1100
Output Total 275 / 275 850 / 850
Balance 825 / 825 -850 / -850
Review of Systems
-
All other systems: Reviewed and negative
Respiratory: Denies Trouble Breathing
Physical Exam
-
General: Well Developed, Well Nourished and Comfortable
HEENT: Normocephalic, Atraumatic and Moist Mucous Membranes
Respiratory: Clear to Auscultation and Non Labored Respirations; Negative Wheezes, Rales, Rhonchi or Accessory Resp Muscle Use
Cardiac: Regular Rhythm and S1/S2
GI: Soft, Nontender and Nondistended
Musculoskeletal: No Clubbing, No Cyanosis and No Edema
Neuro: Awake and Alert
Psych: Calm and Intact Judgement/Insight
Data Reviewed
-
Diagnostic Radiology: Report Reviewed by me
Labs: Labs Reviewed by me
[2024-06-16 08:00] VITALS: BP 120/78; BMI 30.6
--- NOTE | 2024-06-16 09:16 | CM ---
Patient with Dx COVID infection. Room air. PT/OT recommend HH.
Spoke with [facility] (fax [phone]); they are able to accept the referral for SN/PT/OT.
Spoke with patient and Liz; both agree to d/c home today. IMM completed and copy sent to patient's email: [email or web address]. The patient's will provide transport home today.
Plan home today with [facility].
[2024-06-16] MEDS: ELIQUIS 5 MG PO (09:18)
[2024-06-16] MEDS: TYLENOL 650 MG PO (09:18)
[2024-06-16] MEDS: DETROL 2 MG PO (09:18)
[2024-06-16] MEDS: TOPROL XL 25 MG PO (09:20)
[2024-06-16] MEDS: PEPCID 20 MG PO ×2 (09:20→09:21)
[2024-06-16] MEDS: FARXIGA 10 MG PO (09:20)
[2024-06-16] MEDS: LEXAPRO 20 MG PO (09:20)
[2024-06-16] MEDS: BUSPAR 15 MG PO (09:21)
[2024-06-16] MEDS: DECADRON 6 MG IV (09:24)
--- NOTE | 2024-06-16 12:51 | W.DCSUMMARY ---
Discharge Summary
Discharge Data
Date of Admission: 06/14/24
Date of Discharge: 06/16/24
-
Pending Results: No
Hospital Course
Principal Diagnosis:
Sepsis on admission with hypotension due to acute COVID infection
Acute hypoxic respiratory insufficiency, resolved
Dehydration with acute kidney injury, resolved
Chronic Diagnoses:�
Paroxysmal atrial fibrillation
Mitral valve replacement
COPD
Obstructive sleep apnea
Essential hypertension
Hyperlipidemia
Anxiety/depression
GERD
BPH
Consultations:�
None
Procedures:�
None
Clinical course:�
This is a 84-year-old male with past medical history as stated above, who presented with weakness, decreased oral intake and cough, ongoing for about a week.
In the emergency room, he was tested COVID-positive. He was also noted to be hypotensive with systolic 80s on admission.
Problem 1:
Sepsis on admission due to acute COVID infection.
His blood pressure improved following IV fluid resuscitation.
He was mildly hypoxic on admission, with saturations occasionally at 88% on room air, hence remdesivir and IV Decadron were started.
He saturation improved to 96% on room air hence remdesivir was discontinued (he received remdesivir x 1 dose only), he can continue with Decadron 6 mg for total 10 days.
He has been informed to continue COVID isolation for total 10 days.
Problem 2:
Acute kidney injury likely dehydration, resolved following IV fluid.
His serum creatinine down trended from 1.7 on admission to 1.2 which is close to his baseline at 1.1.
As for the rest of his medical problems, they were stable during his hospital stay.
Discharge Plan
-
Patient Disposition: Home with Home Care
Discharge Diagnosis/Procedures: Acute COVID infection;
Dehydration with acute kidney injury (resolved)
Condition: Good
Diet: As tolerated, Low Fat, Low Cholesterol and Low Sodium
Activity: As tolerated
Driving Restrictions: As prior to admission
Activity Restrictions/Additional Instructions:
Continue COVID isolation for total 10 days
Referrals:
Dread Arango MD [Family Provider] - in less than 1 week
Additional Discharge Medication Instructions: Continue Decadron for 8 more days
Prescriptions:
New
dexamethasone 6 mg tablet
6 mg PO DAILY 8 Days Qty: 8 0RF
Continued
metoprolol succinate 25 MG tablet extended release 24 hr
25 mg PO BID
azelastine 0.05 % Drops
1 drp BOTH EYES Q12H
famotidine [Pepcid] 40 mg Tablet
40 mg PO DAILY
buspirone 15 mg Tablet
15 mg PO TID
apixaban 5 mg Tablet
5 mg PO BID
Jardiance 10 mg Tablet
10 mg PO DAILY
therapeutic multivitamin Tablet
1 tab PO DAILY Qty: 0
tolterodine 2 mg Tablet
2 mg PO BID
triamcinolone acetonide 55 mcg Aerosol,[place]
2 spray INTRANASAL DAILY
furosemide 20 mg Tablet
20 mg PO MOWESA
azelastine 137 mcg (0.1 %) Aerosol,[place]
1 spray INTRANASAL BID
escitalopram oxalate [Lexapro] 20 mg Tablet
20 mg PO DAILY
rosuvastatin 40 mg Tablet
40 mg PO HS
Entresto 97-103 mg Tablet
1 tab PO BID
albuterol sulfate 90 mcg/actuation Hfa Aerosol Inhaler
2 puff INHALATION R Q6HPRN PRN (Reason: sob/wheezing)
lorazepam 0.5 mg Tablet
0.5 mg PO DAILYPRN PRN (Reason: anxiety) Qty: 3 0RF
Discharge Orders:
Discharge Patient (As Directed); Ordered 06/16/24
Ordered By: Mone Larsen
Discharge Date and Time
Discharge Date/Time: 06/16/24 11:35
Print Language: CITIZEN [place]
== END 2024-06-16 11:35 | disposition home health service (06) | DRG 871 ==
LOC: IMU 19:50
PROVIDERS: Registered Nurse; ADMITTING PHYSICIAN Hospitalist; ATTENDING PHYSICIAN Internal Medicine; EMERGENCY PHYSICIAN Emergency Medicine; FAMILY PHYSICIAN Internal Medicine
DX: A41.89 Other specified sepsis (principal); U07.1 COVID-19; N17.9 Acute kidney failure, unspecified; I48.0 Paroxysmal atrial fibrillation; I25.10 Atherosclerotic heart disease of native coronary artery without angina pectoris; I11.0 Hypertensive heart disease with heart failure; I50.9 Heart failure, unspecified; J44.9 Chronic obstructive pulmonary disease, unspecified; K21.9 Gastro-esophageal reflux disease without esophagitis; E86.0 Dehydration; D63.8 Anemia in other chronic diseases classified elsewhere; I45.10 Unspecified right bundle-branch block; G47.33 Obstructive sleep apnea (adult) (pediatric); E78.00 Pure hypercholesterolemia, unspecified; Z66 Do not resuscitate; Z95.2 Presence of prosthetic heart valve; Z95.5 Presence of coronary angioplasty implant and graft; Z79.01 Long term (current) use of anticoagulants
CPT/HCPCS: 71045; 80048; 80053; 83605; 83880; 84484; 85025; 85027; 87502; 87811; 93005; 96360; 97163; 97166; 99291; J0248

== ENCOUNTER → 2025-02-28 12:33 | Outpatient (REF) | payer OTHER, SELFPAY | LOC: EMG 12:33 | PROVIDERS: ATTENDING PHYSICIAN Orthopaedic Surgery; FAMILY PHYSICIAN Internal Medicine | DX: R20.1 Hypoesthesia of skin (principal) | CPT/HCPCS: 95886; 95909 ==

== ENCOUNTER 2025-03-10 08:09 | Inpatient (IN) | payer OTHER, SELFPAY ==
[2025-03-10] VITALS (18 sets, daily range): BP systolic 87–148; BP diastolic 57–85; PULSE 67; BMI 31.6
[2025-03-10 03:13] LABS: Hematocrit 34.7 % (39.0-52.0); Hemoglobin 11.1 g/dL (13.0-18.0); Mean Corp Hgb Conc. 32.0 g/dL (33.0-37.0); Mean Corpuscular Volume 103.6 fL (80.0-94.0); Nucleated Red Blood Cells % 0 % (-); Platelet Count 157 10^3/uL (130-400); Red Cell Dist. Width 15.4 % (11.5-14.5)
[2025-03-10] MEDS: TYLENOL 650 MG PO ×2 (03:29→07:20)
[2025-03-10] MEDS: DUONEB 3 ML INH (03:29)
[2025-03-10 03:33] LABS: COVID-19 Antigen Negative (Negative)
[2025-03-10 03:36] LABS: ALT (SGPT) 24 U/L (0-50); AST (SGOT) 26 U/L (17-59); Albumin 3.7 g/dl (3.5-5.0); Alkaline Phosphatase 57 U/L (38-126); Blood Urea Nitrogen 26 mg/dl (9-20); Calcium 9.3 mg/dl (8.4-10.2); Carbon Dioxide 29 mmol/L (22-30); Chloride 111 mmol/L (98-107); Estimated Creatinine Clearance 58 ml/min; Glucose 115 mg/dl (70-99); Potassium 4.4 mmol/L (3.5-5.1); Sodium 145 mmol/L (135-145); Total Protein 6.0 g/dl (6.3-8.2); eGFR > 60.00
[2025-03-10 03:47] LABS: Troponin I 0.097 ng/ml
--- NOTE | 2025-03-10 03:56 | ED.GENMED ---
History of Present Illness
General
Chief Complaint: Breathing Problem
Source: patient and family
Exam Limitations: none
Time Seen by Provider: 03/10/25 03:15
Nursing documentation reviewed up to this point in time: agreed with
History of Present Illness
History of Present Illness:
84-year-old male few days of shortness of breath cough, here sats are low had a temperature, he is diabetic suggestive heart failure, he is only Eliquis-he has been feeling fatigued, decreased appetite some nausea no abdominal pain is accompanied by
his
Past History
Past History
ED Past Medical History: Arrthythmia (Atrial fibrillation, SVT), CAD (Cardiomyopathy, CAD, heart murmur), CHF, COPD, HTN, Hypercholesterolemia, [place], Valvular disease and Psychiatric
ED Past Surgical History: Cardiac (Stents, Mitral valve replacement)
Social History
Tobacco: Former smoker
Alcohol: Occasional
Drug: None
Personal:
Living: with family
Employment: Retired
Review of Systems
Review of Systems
All Other Systems: Not applicable
Constitutional: Denies fever, fatigue or chills
Respiratory: Reports cough and trouble breathing
Cardiac: Reports no symptoms
ABD/GI: Denies abdominal pain
: Reports no symptoms
Musculoskeletal: Reports no symptoms
Neurological: Reports weakness
Phy Exam
Physical Exam
Physical Exam:
Physical Exam
General: Moderately ill-appearing male
Neck: No jaundice
Heart: Tachycardic
Lungs: Diminished breath sounds bilaterally rhonchi on the
Abdomen: Nontender
Neuro: alert and oriented. no focal neurological deficits
Skin: no rash
Psychiatric: well kept. interactive and cooperative
Extremities: Trace edema
Scores
Heart Failure Risk
Heart Failure Risk Score: Not Applicable
Course
Orders/Labs/Results
Orders:
Orders
03/10/25 02:22
Electrocardiogram (*1) Urgent
Reason for Study: Other
Other Reason for Exam: Respiratory Distress
Cardiac Monitoring- Treatment ONCE
EKG- Treatment ONCE
IV Insert/Care/Rem.- Treatment PRN
CR Chest - 2 Views Urgent
Comment:
Reason For Exam: respiratory distress
O2 Therapy [RESP] Urgent
Titrate/Wean O2 to maintain O2 sat greater than (%): 93
Special Instructions: TO MAINTAIN CONTINUOUS O2 SATS >/= 93%
Pulse Ox/cont/shift [RESP] Urgent
Quantity: 1
Special Instructions: continuous pulse ox
03/10/25 02:43
COVID-19 Antigen Urgent
Source: Nasal Swab
Complete Blood Count/With Diff Urgent
Comprehensive Metabolic Panel Urgent
Lactic Acid Q4H
Comment: ON ICE, CANCEL 2ND ORDER IF FIRST LACTIC ACID LEVEL <2
NT-proBNP Urgent
Troponin I Urgent
Influenza A+B Rapid Molecular Urgent
MODE Source: Nasal Swab
Specimen Description:
03/10/25 03:22
Acetaminophen [Tylenol] 650 mg PO NOW STA
Ipratropium/Albuterol Sulfate [Duoneb] 3 ml INH R NOW STA
03/10/25 03:36
Ipratropium/Albuterol Sulfate [Duoneb] 3 ml .ROUTE .STK-MED ONE
03/10/25 03:55
CefTRIAXone [Rocephin] 1,000 mg IV NOW STA
03/10/25 04:09
Doxycycline Hyclate [Vibramycin] 100 mg 0.9% Sodium Chloride 250 ml [Nss] 250 ml IV NOW
03/10/25 05:56
Lactic Acid Q4H
Comment: ON ICE, CANCEL 2ND ORDER IF FIRST LACTIC ACID LEVEL <2
03/10/25 06:58
Acetaminophen [Tylenol] 650 mg PO NOW STA
03/10/25 07:15
Blood Culture Q30M
MODE Source: Blood/Venous
Specimen Description:
03/10/25 07:45
Blood Culture Q30M
MODE Source: Blood/Venous
Specimen Description:
Abnormal Lab Results
03/10/25
02:43
WBC 11.4 H 10^3/uL
(4.8-10.8)
RBC 3.35 L 10^6/uL
(4.70-6.10)
Hgb 11.1 L g/dL
(13.0-18.0)
Hct 34.7 L %
(39.0-52.0)
MCV 103.6 H fL
(80.0-94.0)
MCH 33.1 H pg
(27.0-31.0)
MCHC 32.0 L g/dL
(33.0-37.0)
RDW 15.4 H %
(11.5-14.5)
Absolute Neuts (auto) 8.4 H 10^3/uL
(1.4-6.5)
Absolute Monos (auto) 1.1 H 10^3/uL
(0.1-0.6)
Lymphocytes % 14.1 L %
(20.5-51.1)
Monocytes % 9.6 H %
(1.7-9.3)
Chloride 111 H mmol/L
(98-107)
BUN 26 H mg/dl
(9-20)
Glucose 115 H mg/dl
(70-99)
Lactic Acid 2.1 H mmol/L
(0.7-2.0)
Troponin I 0.097 H* ng/ml
Total Protein 6.0 L g/dl
(6.3-8.2)
03/10/25 02:43
03/10/25 02:43
Vital Signs
Initial and Last Documented VS:
Initial Vital Signs
Pulse Resp Pulse Ox
82 29 82
03/10/25 02:23 03/10/25 02:23 03/10/25 02:23
Last Documented Vital Signs
Temp Pulse Resp BP Pulse Ox
99.1 F 83 19 127/61 96
03/10/25 05:30 03/10/25 06:30 03/10/25 06:30 03/10/25 06:00 03/10/25 06:30
MDM/Problems Addressed
Differential Diagnosis Includes:
Pneumonia bronchitis heart failure
MDM/Problems Addressed:
Shortness of breath fever hypoxia
Chronic conditions affecting care: Cardiomyopathy, Arrhythmia, Neurological disorder and Kidney disease
Acute Exacerbation and/or Progression of Chronic Illness: Cardiomyopathy, Arrhythmia, Neurological disorder and Kidney disease
*Radiology
Radiology exam reviewed: preliminary read by ED provider
*Pulse Oximetry
SaO2: 91
Nasal Cannula flow liters per minute: 6
Oxygen Mode of Delivery: Room air
Patient hypoxic: yes
*EKG
Interpreted by ED Provider?: Yes
Interpretation: abnormal
Comparison EKG: no comparison EKG present
Heart Rate: 78
Rate: normal
Rhythm: a-fib
Ischemia: non-specific ST changes
*Grocery Store Clerk Interpretation
Rate: normal
Interpretation: normal
Heart Rate: 78
Rhythm: a-fib
*Critical Care Note
Total Time (30-74mins, 75-104mins- exclusive of procedures): 32
Update Note
Update Note:
Update labs noted x-ray noted will start on antibiotics, appears to live in the community, has multiple comorbid conditions, is elderly will require admission
ED Attending Note
-
Portions of this chart may have been created with voice recognition software.� Occasional wrong word or��sound alike� substitutions may have occurred due to the inherent limitations of voice recognition software.
Discharge Plan
Departure
Patient Disposition: Admit
Date of Disposition: 03/10/25
Time of Disposition: 07:01
Admit to: Telemetry
Presentation/result/management discussed w/ accepting MD/DO: Hospitalist
Patient with high blood pressure during this ER visit?: No
Condition: Fair
Discharge Problem:
CHF (congestive heart failure), COPD (chronic obstructive pulmonary disease), Acute respiratory insufficiency
Prescriptions:
No Action
famotidine [Pepcid] 40 mg Tablet
40 mg PO DAILY
buspirone 15 mg Tablet
15 mg PO TID
Jardiance 10 mg Tablet
10 mg PO DAILY
therapeutic multivitamin Tablet
1 tab PO DAILY Qty: 0
tolterodine 2 mg Tablet
2 mg PO BID
azelastine 137 mcg (0.1 %) Aerosol,[place]
1 spray INTRANASAL BID
escitalopram oxalate [Lexapro] 20 mg Tablet
20 mg PO DAILY
rosuvastatin 40 mg Tablet
40 mg PO HS
sacubitril-valsartan [Entresto] 97-103 mg Tablet
1 tab PO BID
albuterol sulfate 90 mcg/actuation Hfa Aerosol Inhaler
2 puff INHALATION R Q6HPRN PRN (Reason: sob/wheezing)
lorazepam 0.5 mg Tablet
0.5 mg PO DAILYPRN PRN (Reason: anxiety) Qty: 3 0RF
azelastine 0.05 % Drops
1 drp OPHTHALMIC (EYE) BID
Rx Instructions:
OU
furosemide 20 mg Tablet
20 mg PO DAILY PRN (Reason: swelling)
apixaban 2.5 mg Tablet
2.5 mg PO BID
Referrals:
Dread Arango MD [Family Provider]
Interventions
Interventions:
*Risk Screen - Suicide Last Done: 03/10/25 02:28
*General Assessment Last Done: 03/10/25 02:28
*Neglect/Abuse Screening Last Done: 03/10/25 02:28
*ED- Fall Risk Assessment Last Done: 03/10/25 02:28
ED- Cardiac Assessment Last Done: 03/10/25 03:07
ED- Pulmonary Assessment Last Done: 03/10/25 03:07
Discharge Date and Time
Print Language: MAORI
[2025-03-10] MEDS: ROCEPHIN 1000 MG IV (04:01)
[2025-03-10] MEDS: VIBRAMYCIN 260 MG IV (04:16)
--- NOTE | 2025-03-10 07:15 | EDRN ---
Pt administered tylenol for feeling hot and increase in temp to 100. Pt is awaiting hospitalist at this time.
--- NOTE | 2025-03-10 07:19 | EDRN ---
Dr. Ndiaye in room w/ pt. Pt on 100% NRBM at this time. Cold towel wrapped around his neck as he is feeling hot.
--- NOTE | 2025-03-10 07:45 | EDRN ---
Pt was placed on Mid Flow by Resp Therapist who just left room. Mid flow at 15 lpm w/ humidification on pt w/ POX now 93%.
--- NOTE | 2025-03-10 07:49 | HPS.HSE ---
Addendum entered and electronically signed by August Ndiaye DO 03/10/25 13:28:
I spoke with patient's on the phone and updated her. All questions answered.
Original Note:
Family Physician
-
Family Physician: Dread Arango MD
Chief Complaint
-
Cough, hemoptysis, shortness of breath, fatigue
History of Present Illness
84-year-old male with history of heart failure here complaining of increased dyspnea on exertion over the past 5 days. Symptoms started Tuesday of last week and subsequently developed cough with hemoptysis on .
He admits to 12 pound weight gain over the past week and a half. He believes it is dietary indiscretion related as he was eating a lot of salty foods, [place] from [place].
He is prescribed as needed Lasix but decided not to take it for unclear reasons.
Denies orthopnea.
Denies fevers or chills. Not on home oxygen. Denies sick contacts.
Medical History
Past Medical History
Past Medical History: Reports Other
Additional Past Medical History:
Chronic heart failure preserved EF
CAD
Paroxysmal atrial fibrillation
COPD
Essential hypertension
LUCIUS
Osteoarthritis
Carotid vascular disease
Past Surgical History: Reports Other
Additional Past Surgical History:
Bioprosthetic MVR�201
Left total knee replacement 2023
Right carotid surgery (patient cannot recall if endarterectomy versus stent)
Social History
Tobacco: Non-smoker
Alcohol: Occasional
Drug: None
Living: With Family
Family History
Family History: Not pertinent
Allergies / Home Medications
Allergies reflects when Allergies were last updated in [facility].
Home Medications with original date entered in [facility]
Allergy/Medication List:
Allergies
Allergy/AdvReac Type Severity Reaction Status Date / Time
midazolam (From Versed) AdvReac hallucinati Verified 06/15/24 19:30
on
oxycodone (From Percocet) AdvReac hallucinati Verified 06/15/24 19:30
on
Home Medications
buspirone 15 mg tablet 15 mg PO TID Mental Health/Anxiety 07/30/22
empagliflozin 10 mg tablet (Jardiance) 10 mg PO DAILY Heart Failure 07/30/22
famotidine 40 mg tablet (Pepcid) 40 mg PO DAILY Gastrointestinal issue 07/30/22
azelastine 137 mcg (0.1 %) nasal spray 1 spray intranasal BID Allergies 12/29/23
escitalopram oxalate 20 mg tablet (Lexapro) 20 mg PO DAILY Depression 12/29/23
rosuvastatin 40 mg tablet 40 mg PO HS High Cholesterol 12/29/23
sacubitril 97 mg-valsartan 103 mg tablet (Entresto) 1 tab PO BID Heart Failure 12/29/23
therapeutic multivitamin 1 tab PO DAILY Supplement ##0 12/29/23
tolterodine 2 mg tablet 2 mg PO BID Urinary Issue 12/29/23
albuterol sulfate 90 mcg/actuation aerosol inhaler 2 puff inhalation R Q6HPRN PRN sob/wheezing 06/14/24
lorazepam 0.5 mg tablet 0.5 mg PO DAILYPRN PRN anxiety #3 tabs 06/16/24
apixaban 2.5 mg tablet 2.5 mg PO BID 03/10/25
azelastine 0.05 % eye drops 1 drp ophthalmic (eye) BID 03/10/25
furosemide 20 mg tablet 20 mg PO DAILY PRN swelling 03/10/25
Review of Systems
-
History Source: Patient
A 12 point ROS was completed and negative except as noted: Yes
Physical Exam
Vital Signs
Vital Signs
Temp Pulse Resp BP Pulse Ox
99.1 F 74 28 122/59 96
03/10/25 05:30 03/10/25 07:15 03/10/25 07:15 03/10/25 07:13 03/10/25 07:15
Physical Exam
General: Well Developed, Well Nourished, No Apparent Distress and Comfortable
HEENT: NormoCephalic, Anicteric and Moist mucous membranes
Respiratory: Decreased Breath Sounds
Cardiac: S1/S2 and Regular Rhythm
GI: Soft, Non Tender and Non Distended
Genito-urinary: Deferred by me
Musculoskeletal: No Clubbing, No Cyanosis, Edema, Left Lower Extremity and Edema, Right Lower Extremity
Skin: Warm and Dry
Neuro: AO x 3
Hematologic/Lymphatic: No Lymphadenopathy
Psych: Calm
Laboratory Results
-
03/10/25 02:43
03/10/25 02:43
Laboratory Results
Lactic Acid 1.2 mmol/L (0.7-2.0) 03/10/25 05:56
Total Bilirubin 0.7 mg/dl (0.2-1.3) 03/10/25 02:43
AST 26 U/L (17-59) 03/10/25 02:43
ALT 24 U/L (0-50) 03/10/25 02:43
Alkaline Phosphatase 57 U/L (38-126) 03/10/25 02:43
Troponin I 0.097 ng/ml H* 03/10/25 02:43
Impression/Plan
-
Acute hypoxic respiratory failure -likely multifactorial etiology including acute pulmonary edema, pleural effusions, bronchitis versus pneumonia. Required Ventimask and nonrebreather in the emergency room. Transition to mid flow and wean down as
able. Not on home oxygen.
Admit to telemetry.
Acute on chronic heart failure with preserved EF -presentation with pulmonary edema, pleural effusions, BNP elevation, weight gain. Start with IV Lasix, check echocardiogram, consult cardiology. Check daily weights.
Sepsis -unclear if due to bronchitis versus pneumonia versus other etiology. Presentation with low-grade fever and leukocytosis. Chest x-ray reviewed by myself, shows findings of pulmonary edema and bilateral pleural effusions. Awaiting official
read.
Check blood cultures. Unfortunately, antibiotics already administered this morning. Continue empiric antibiotics for possible pneumonia. Check urinary antigens.
Lactic acidosis, 2.1 on admission, repeat 1.2.
Troponin elevation -0.097, will trend. Denies chest pain. Doubt ACS. EKG shows bifascicular block, age undetermined anteroseptal infarct. Possibly acute nonischemic myocardial injury due to acute illness.
Hemoptysis -suspect related to cough and underlying chronic anticoagulation with Eliquis. Hold Eliquis for now.
Paroxysmal atrial fibrillation -hold Eliquis for hemoptysis.
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
COPD without exacerbation -no wheezing on exam. Monitor for now.
Chronic macrocytic anemia -hemoglobin at baseline. Monitor for now.
Essential hypertension -stable.
Hyperlipidemia -rosuvastatin.
Obesity due to excess calories
DNR
[2025-03-10] MEDS: LASIX 40 MG IV (07:58)
--- NOTE | 2025-03-10 08:04 | EDRN ---
POX presently 90-92% on Mid flow at 15 lpm.
--- NOTE | 2025-03-10 08:35 | EDRN ---
POX now 88-92 % on Mid Flow at 15 lpm.
--- NOTE | 2025-03-10 09:13 | EDRN ---
At 9:00 pt on stretcher w/ oxygen off, POX 77% saying he cannot find his hearing aide. Pt has one but not 2.
--- NOTE | 2025-03-10 09:42 | EDRN ---
Pt called spouse about hearing aide to see if it is at home.
--- NOTE | 2025-03-10 09:45 | EDRN ---
Pt moved to recliner to look for hearing aide.
--- NOTE | 2025-03-10 09:48 | EDRN ---
Chaitanya RN and Kalyn Hayden RN searched trash piece by piece and all linen in room. Pt moved to recliner and bed checked and both belonging bags as well as under bed and any areas under mattress w/ no other hearing aide found. Pt called spouse to check
for other hearing aide at home.
--- NOTE | 2025-03-10 10:09 | EDRN ---
Pt states his spouse said hearing aide is not at home and is in room as his phone says it is in the room. This RN called analytics lead about this hearing aide at this time.
--- NOTE | 2025-03-10 10:25 | CM ---
CM reviewed chart and met with pt bedside in ED. Pt lives with his in 2 story home, [address] main entrance, [address] other entrance. Half BA first floor, BR/full BA second floor.
Independent in ADLs, personal care and ambulation at baseline, no assistive devices. Still driving. Does have CPAP.
Hx VN, no hx SNF.
PCP: Dread Arango
Pharmacy: [address]
CM will continue to follow for all discharge planning needs.
--- NOTE | 2025-03-10 10:34 | EDRN ---
Sheryl Oden and Lynn Olivares charge nurse went in and searched room and found hearing aide behind bathroom door. Pt placed both hearing aides in a safe container when these RNs in room.
[2025-03-10] MEDS: MUCINEX 600 MG PO ×2 (12:14→20:29)
[2025-03-10] MEDS: BUSPAR 15 MG PO ×3 (12:14→21:34)
[2025-03-10] MEDS: FARXIGA 10 MG PO (12:14)
[2025-03-10] MEDS: PEPCID 40 MG PO (12:14)
[2025-03-10] MEDS: LEXAPRO 20 MG PO (12:14)
[2025-03-10] MEDS: THERAGRAN 1 TABLET PO (12:15)
[2025-03-10] MEDS: DETROL 2 MG PO ×2 (12:17→20:28)
[2025-03-10] MEDS: ENTRESTO 97 MG/103 MG 1 TAB PO ×2 (12:19→20:29)
[2025-03-10 12:35] LABS: Troponin I 0.306 ng/ml
--- NOTE | 2025-03-10 12:51 | CON.CAR ---
Consultation
Consultation Request
Date/Time Consultation Requested: 03/10/2025 8:30 AM
Date/Time Consultation Performed: 03/10/2025 12:30 PM
Requesting Provider: Dr. Ndiaye
Performing Provider: Dr Alma Mclean
Reason for Consultation: Heart failure
Medical History
-
Chief Complaint: Dyspnea/heart failure
History of Present Illness:
Patient is known to [facility]. He presented with shortness of breath and dyspnea on exertion, decline in activity level over the past 5 days. His family was visiting from out of the country and he was eating salty
foods. He has gained by report 12 pounds of fluid weight over the past week or week and a half secondary to dietary indiscretion. He was not taking his as needed diuretic. He has known heart failure with preserved (improved) ejection fraction
(previously reduced left ventricular ejection fraction in 2017 25 to 30%). proBNP 3610.
On presentation to the ER he was noted to have acute pulmonary edema and pleural effusions. Hypoxemic respiratory failure. In addition bronchitis versus pneumonia. Lactic acidosis initially noted. Last week he also developed cough with hemoptysis
last week by report.
He has paroxysmal atrial fibrillation 2012 (Eliquis) PVI in the distant past. Recurrence of A-fib over time which has been paroxysmal. Currently in sinus.. 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
03/21/2019.
He has history of coronary artery disease (history of stents) and bioprosthetic mitral valve replacement/tricuspid valve repair in 2018. Initial troponin was elevated at 0.097. Repeat troponin 0.306. Third troponin pending.
- According to prior cardiac rehab records he has history of mid LAD stent 07/2017 complicated by occlusion of diagonal vessel (ST CA)
- This was followed by admission to [facility] 2016 with heart failure and left ventricular ejection fraction 25 to 30%. 09/2017 GAVIN 45 to 50% then 50 to 55%.
-Echocardiogram at [facility] 12/20/2017 ejection fraction is 50% with apical hypokinesis. Mild LVH. Flattened septum in diastole consistent with RV volume overload. Moderate to severe MR. Moderate TR. Right ventricle is hypokinetic.
Estimated PA pressure 92 mmHg.
He also has hypertension, hyperlipidemia.
He has history of COPD and sleep apnea.
He has prior acute kidney injury with abnormal creatinine. Current creatinine 1.2.
He has history of TIA carotid disease with left carotid endarterectomy 03/09/2018 ([facility]). He also has chronic macrocytic anemia.
Past Medical History
Past Medical History: Arrhythmias (Atrial fibrillation 2012; tachybradycardia permanent pacemaker), CAD (CAD with CA and history of stents with LAD stent 07/2017), CHF (History of heart failure with reduced ejection fraction ejection fraction 25 to
30% 2016 then improved to 50%.), COPD (And sleep apnea), CVA (History of TIA previous to carotid disease and carotid endarterectomy), HTN, Hypercholesterolemia and Renal Failure (History of renal insufficiency)
Past Surgical History: Cardiac (LAD stent 2016, pacemaker 2018, mitral valve replacement and tricuspid valve valve repair 2017) and Other (Carotid endarterectomy 2017)
Social History
Tobacco: Non-Smoker
Alcohol: Occasional
Living: With Family
Family History
Family History: Reviewed & Not Pertinent
Allergies / Home Medications
Allergy/AdvReac Type Severity Reaction Status Date / Time
midazolam (From Versed) AdvReac hallucinati Verified 06/15/24 19:30
on
oxycodone (From Percocet) AdvReac hallucinati Verified 06/15/24 19:30
on
�Medication �Instructions �Recorded �Confirmed �Type
buspirone 15 mg tablet 15 mg PO TID Mental Health/Anxiety 07/30/22 03/10/25 History
empagliflozin 10 mg tablet 10 mg PO DAILY Heart Failure 07/30/22 03/10/25 History
(Jardiance)
famotidine 40 mg tablet (Pepcid) 40 mg PO DAILY Gastrointestinal 07/30/22 03/10/25 History
issue
azelastine 137 mcg (0.1 %) nasal 1 spray intranasal BID Allergies 12/29/23 03/10/25 History
spray
escitalopram oxalate 20 mg tablet 20 mg PO DAILY Depression 12/29/23 03/10/25 History
(Lexapro)
rosuvastatin 40 mg tablet 40 mg PO HS High Cholesterol 12/29/23 03/10/25 History
sacubitril 97 mg-valsartan 103 mg 1 tab PO BID Heart Failure 12/29/23 03/10/25 History
tablet (Entresto)
therapeutic multivitamin 1 tab PO DAILY Supplement ##0 12/29/23 03/10/25 History
tolterodine 2 mg tablet 2 mg PO BID Urinary Issue 12/29/23 03/10/25 History
albuterol sulfate 90 mcg/actuation 2 puff inhalation R Q6HPRN PRN 06/14/24 03/10/25 History
aerosol inhaler sob/wheezing
lorazepam 0.5 mg tablet 0.5 mg PO DAILYPRN PRN anxiety #3 06/16/24 03/10/25 Rx
tabs
apixaban 2.5 mg tablet 2.5 mg PO BID Blood Clot 03/10/25 03/10/25 History
Prevention/Tx
azelastine 0.05 % eye drops 1 drp ophthalmic (eye) BID 03/10/25 03/10/25 History
Allergies
furosemide 20 mg tablet 20 mg PO DAILY PRN swelling 03/10/25 03/10/25 History
Review of Systems
-
History Source: Patient
All other systems: Negative unless noted
Constitutional: Weight Gain
Respiratory: Trouble Breathing
Physical Exam
Vital Signs
Temp Pulse Resp BP Pulse Ox
97.3 F 64 22 133/57 94
03/10/25 11:42 03/10/25 12:19 03/10/25 11:42 03/10/25 12:19 03/10/25 12:43
Lab Results
03/10/25 02:43
03/10/25 02:43
Troponin I 0.306 ng/ml H* 03/10/25 11:40
Ygf-M-Zfsiztcpsxe Pept 3610 pg/ml 03/10/25 02:43
Impression / Plan
-
Electrophysiology [facility]: Dr. Ponce
Cardiology [facility]: Dr. Pavon
Impression:
Acute on chronic decompensated heart failure with improved ejection fraction
Hypoxemic respiratory failure on presentation
Coronary artery disease with LAD stent 2016
Elevated troponin without chest pain likely nonischemic troponin elevation
[employer] permanent pacemaker 2018
Mitral valve replacement bioprosthetic and tricuspid valve repair 2018 ([facility])
Paroxysmal atrial fibrillation (Eliquis) 2012- history of PVI distant past with recurrence
Hypertension
Hyperlipidemia
History of TIA with carotid disease and left carotid endarterectomy
COPD
Sleep apnea on CPAP
Renal insufficiency
Chronic macrocytic anemia
Plan:
He presents with decompensated heart failure after family was visiting from out of the country. He was off of his usual diet. He began having dyspnea on exertion, weight gain, abdominal bloating and fatigue perhaps 5 days ago. Given CPAP no clear
PND or orthopnea. He denies chest pain but did notice decline in activity level such as taking out the trash.
Plan at this time:
Hypoxemic respiratory failure on presentation heart failure decompensation acute on chronic with previously improved left ventricular ejection fraction
Prior history of ejection fraction 20 to 25% in 2017 by report recovered to 50% and has been stable.
Continue IV diuretic Lasix
Follow input/output/daily weights
Heart failure dietary counseling and teaching
Echocardiogram ordered
Continue treatment of sleep apnea with CPAP
Continue guideline directed medical treatment that he was on prehospitalization (Entresto/SGLT2 inhibitor)
He may benefit from Aldactone, will add 12.5 mg daily and watch potassium/creatinine.
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
Reassess echo
Coronary artery disease status post LAD stent 2017
Aggressive risk factor modification
Check lipids and continue statin
Currently on Eliquis
EKG is abnormal but stable
Mildly elevated troponins continue to trend. Possibly non-CA troponin elevation.. No chest pain. He tells me he has upcoming stress test on the 18th of this month
Hyperlipidemia
Check lipids, continue statin
Blood pressure
Stable on treatment
Paroxysmal atrial fibrillation distant PVI
He tells me he has had a recurrence especially when his heart function is problematic currently in sinus rhythm.
Eliquis dosing should be 5 mg twice daily if creatinine remains stable. Reassess tomorrow.
[employer] permanent pacemaker 2018
Pacemaker check
History of COPD, possible bronchitis/pneumonia. Defer to primary service.
Anemia noted.
History of renal insufficiency noted
History of TIA with prior carotid intervention.
Obtain records.
Data Reviewed
-
EKG: Tracing Personally Visualized and interpreted
Radiology: Image Personally Visualized and interpreted and Report Reviewed by me
Medical Tests (Nuc Med, Echo etc): Image Personally Visualized and interpreted and Report Reviewed by me
Labs: Labs Reviewed by me
Old Records: Requested
[2025-03-10 18:33] LABS: Troponin I 0.197 ng/ml
[2025-03-10] MEDS: VIBRAMYCIN 100 MG PO (20:28)
[2025-03-10] MEDS: CRESTOR 40 MG PO (21:34)
[2025-03-11 03:28] VITALS: BP 118/59
[2025-03-11 05:38] VITALS: BMI 29.9
[2025-03-11 07:15] VITALS: BP 125/64
--- NOTE | 2025-03-11 07:38 | W.PN.HOSP.TC ---
Today's Communication/Plan
-
See plan
Assessment / Plan
Assessment / Plan
Physical Exam
General: Well Developed, Well Nourished, No Apparent Distress and Comfortable
HEENT: NormoCephalic, Anicteric and Moist mucous membranes
Respiratory: Decreased Breath Sounds
Cardiac: S1/S2 and Regular Rhythm
GI: Soft, Non Tender and Non Distended
Genito-urinary: Deferred by me
Musculoskeletal: No Cyanosis. Edema, Left Lower Extremity and Edema, Right Lower Extremity
Skin: Warm and Dry
Neuro: AO x 3
Hematologic/Lymphatic: No Lymphadenopathy
Psych: Calm
Assessment/Plan
84-year-old male with history of heart failure here complaining of increased dyspnea on exertion over the 5 days prior to presentation. Symptoms started 03/05/25 and subsequently developed cough with hemoptysis on on 03/07/25.
He admitted to 12 pound weight gain over the past week and a half prior to arrival. He believes it is dietary indiscretion related as he was eating a lot of salty foods, [place] from [place]
He is prescribed as needed Lasix but decided not to take it for unclear reasons.
Denies orthopnea.
Denies fevers or chills. Not on home oxygen. Denies sick contacts.
Acute hypoxic respiratory failure -likely multifactorial etiology including acute pulmonary edema, pleural effusions, bronchitis versus pneumonia. Required Ventimask and nonrebreather in the emergency room. Transition to mid flow and wean down as
able. Not on home oxygen.
Admit to telemetry.
Acute on chronic heart failure with preserved EF -presentation with pulmonary edema, pleural effusions, BNP elevation, weight gain. Start with IV Lasix, check echocardiogram, consult cardiology. Check daily weights.
Concern for possible Sepsis -unclear if due to bronchitis versus pneumonia versus other etiology. Presentation with low-grade fever and leukocytosis. Chest x-ray noted.
Blood cultures with no growth to date. Urinary antigens negative.
Lactic acidosis, 2.1 on admission, repeat 1.2.
Antibiotics were previously given for pneumonia, however per pulmonary, antibiotics no longer needed and have been stopped.
Troponin elevation -0.097, will trend. Denies chest pain. Doubt ACS. EKG shows bifascicular block, age undetermined anteroseptal infarct. Possibly acute nonischemic myocardial injury due to acute illness.
Hemoptysis -suspect related to cough and underlying chronic anticoagulation with Eliquis. Hold Eliquis for now. Appreciate pulmonary.
Paroxysmal atrial fibrillation -hold Eliquis for hemoptysis.
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
COPD without exacerbation -no wheezing on exam. Monitor for now.
Chronic macrocytic anemia -hemoglobin at baseline. Monitor for now.
Essential hypertension -stable.
Hyperlipidemia -rosuvastatin.
Obesity due to excess calories
DNR
Anticipated Discharge: 24 - 48 hours
Subjective/Interval History
-
Date of Service: March 11, 2025
Patient was seen and examined. He reported that he continues to cough up some blood.
Objective Data
-
Labs:
Laboratory Results
03/11/25
06:00
WBC Pending
Hgb Pending
Hct Pending
Plt Count Pending
Sodium Pending
Potassium Pending
Chloride Pending
Carbon Dioxide Pending
BUN Pending
Creatinine Pending
Glucose Pending
Calcium Pending
Vital Signs:
Vital Signs
Temp Pulse Resp BP Pulse Ox
98.3 F 74 18 118/59 93
03/11/25 03:28 03/11/25 03:28 03/11/25 03:28 03/11/25 03:28 03/11/25 03:28
I&O
03/10/25 03/11/25 03/12/25
06:59 06:59 06:59
Intake Total 480 / 480
Output Total 2175 / 2175
Balance -1695 / -1695
--- NOTE | 2025-03-11 08:35 | CARDSERVLU ---
Echocardiogram with [facility] completed after protocol screening completed. Allergies verified.
Patent IV site: __RT FA___
IV site flushed with 0.9% NaCl pre and post administration.
Diluted bolus method utilized to enhance visualization of ventricular richardson.
Total volume given: _4.0___ mL
Patient tolerated all procedures well without complications.
[2025-03-11] MEDS: DETROL 2 MG PO ×2 (09:15→20:23)
[2025-03-11] MEDS: THERAGRAN 1 TABLET PO (09:15)
[2025-03-11] MEDS: LASIX 40 MG IV (09:16)
[2025-03-11] MEDS: FARXIGA 10 MG PO (09:16)
[2025-03-11] MEDS: MUCINEX 600 MG PO ×2 (09:16→20:23)
[2025-03-11] MEDS: ENTRESTO 97 MG/103 MG 1 TAB PO ×2 (09:17→20:23)
[2025-03-11] MEDS: VIBRAMYCIN 100 MG PO (09:17)
[2025-03-11] MEDS: LEXAPRO 20 MG PO (09:18)
[2025-03-11] MEDS: BUSPAR 15 MG PO ×3 (09:18→22:15)
[2025-03-11] MEDS: PEPCID 40 MG PO (09:19)
[2025-03-11] MEDS: ALDACTONE 12.5 MG PO (09:20)
[2025-03-11] MEDS: STERILE WATER FOR INJECTION 10 ML IV (09:20)
[2025-03-11] MEDS: ROCEPHIN 1000 MG IV (09:21)
[2025-03-11 09:23] LABS: Hematocrit 32.7 % (39.0-52.0); Hemoglobin 10.5 g/dL (13.0-18.0); Mean Corp Hgb Conc. 32.1 g/dL (33.0-37.0); Mean Corpuscular Volume 101.6 fL (80.0-94.0); Nucleated Red Blood Cells % 0 % (-); Platelet Count 167 10^3/uL (130-400); Red Cell Dist. Width 15.0 % (11.5-14.5)
[2025-03-11 10:28] LABS: Blood Urea Nitrogen 27 mg/dl (9-20); Calcium 9.2 mg/dl (8.4-10.2); Carbon Dioxide 26 mmol/L (22-30); Chloride 106 mmol/L (98-107); Estimated Creatinine Clearance 61 ml/min; Glucose 99 mg/dl (70-99); HDL Cholesterol 46 mg/dl; LDL Cholesterol, Calculated 66 mg/dl; Potassium 3.7 mmol/L (3.5-5.1); Sodium 141 mmol/L (135-145); Very Low Density Lipoprotein 14 mg/dl (0-30); eGFR > 60.00
[2025-03-11 11:04] VITALS: BP 132/66
--- NOTE | 2025-03-11 12:21 | W.PN.CARDCBS ---
Addendum entered and electronically signed by Arsenio Gonzalez DO 03/11/25 17:46:
I saw and examined the patient.
The Teaching Manager's note was reviewed and I agree with the note.
Comment:
Plan:
Requested records from outside magistrate.
Check echocardiogram, currently pending
Continue IV diuresis.
Replete potassium as necessary.
Consider Aldactone for history of recovered cardiomyopathy.
Pacer interrogation.
Addendum entered and electronically signed by Beckie Costa PA-C 03/11/25 16:15:
Pacemaker interrogation performed by [employer]. Patient has 5 years of battery life remaining. There were no atrial or ventricular arrhythmias noted on device interrogation. Patient is not pacemaker dependent. He did have brief episodes of
PMT (pacemaker mediated tachycardia) and adjustments/reprogramming was performed on his device to limit this from occurring. Otherwise device function was normal.
Also requested records from Dr. Ponce and Dr. Jacquelyn Pavon via [facility] medical record.
Original Note:
Today's Communication / Plan
-
start aldactone 12.5 mg daily
Give potassium 20 meq x 1 now
Echo today (pending)
Continue IV diuresis
wean oxygen as able
requested records from [facility]
Impression / Plan
-
Electrophysiology [facility]: Dr. Ponce
Cardiology [facility]: Dr. Pavon
Impression:
Presented 03/10/2025 with shortness of breath and dyspnea on exertion, decline in activity level over the past 5 days
Acute on chronic decompensated heart failure with improved ejection fraction, proBNP 3610
Hypoxemic respiratory failure on presentation
Elevated troponin without chest pain likely nonischemic troponin elevation, peaked 0.306
Coronary artery disease with LAD stent 2016
[employer] permanent pacemaker 2019
Mitral valve replacement bioprosthetic and tricuspid valve repair 2018 ([facility])
Paroxysmal atrial fibrillation (Eliquis) 2012- history of PVI distant past with recurrence
Hypertension
Hyperlipidemia
History of TIA with carotid disease and left carotid endarterectomy
COPD
Sleep apnea on CPAP
Renal insufficiency
Chronic macrocytic anemia
Echo 03/11/2025: pending
Plan:
He presented 03/10/2025 with decompensated heart failure after family was visiting from out of the country. He was off of his usual diet. He began having dyspnea on exertion, weight gain, abdominal bloating and fatigue perhaps 5 days ago. Given
CPAP no clear PND or orthopnea. He denies chest pain but did notice decline in activity level such as taking out the trash.
Hypoxemic respiratory failure on presentation heart failure decompensation acute on chronic with previously improved left ventricular ejection fraction
Prior history of ejection fraction 20 to 25% in 2017 by report recovered to 50% and has been stable.
Continue IV diuretic Lasix
K+ 3.7, Replete potassium will give 20 meq given new to aldactone 03/11
Follow input/output/daily weights, weight only down 1 lb overnight
Heart failure dietary counseling and teaching
Echocardiogram pending
Continue treatment of sleep apnea with CPAP
Continue guideline directed medical treatment that he was on prehospitalization (Entresto/SGLT2 inhibitor)
Aldactone 12.5 mg daily added 03/11/2025, watch potassium/creatinine.
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
Reassess with echo (pending)
Coronary artery disease status post LAD stent 2017
Aggressive risk factor modification
Check lipids and continue statin
Currently on Eliquis
EKG is abnormal but stable
Mildly elevated troponins, peaked at 0.306. Suspect non-ischemic myocardial injury due to acute HF. Denies chest pain. He tells me he has upcoming stress test on the of this month with outpt cardiology
Hyperlipidemia
Lipids 03/11/2025 TC 126, HDL 46, LDL 66, tgs 72, continue statin
Blood pressure
Stable on treatment, monitor with addition of aldactone
Paroxysmal atrial fibrillation distant PVI
He tells me he has had a recurrence especially when his heart function is problematic currently in sinus rhythm.
Eliquis dosing increased to 5 mg twice daily this admission given stable creat that is less than 1.5
[employer] permanent pacemaker 2018
Pacemaker check pending
History of COPD, possible bronchitis/pneumonia. Defer to primary service.
Anemia noted. stable hgb 10.5
History of renal insufficiency noted, creat stable at 1.0
History of TIA with prior carotid intervention.
I personally called to obtain records 03/11/2025
Plan discussed w/ pt and nursing
History of Present Illness 03/10/2025:
Patient is known to [facility]. He presented with shortness of breath and dyspnea on exertion, decline in activity level over the past 5 days. His family was visiting from out of the country and he was eating salty
foods. He has gained by report 12 pounds of fluid weight over the past week or week and a half secondary to dietary indiscretion. He was not taking his as needed diuretic. He has known heart failure with preserved (improved) ejection fraction
(previously reduced left ventricular ejection fraction in 2017 25 to 30%). proBNP 3610.
On presentation to the ER he was noted to have acute pulmonary edema and pleural effusions. Hypoxemic respiratory failure. In addition bronchitis versus pneumonia. Lactic acidosis initially noted. Last week he also developed cough with hemoptysis
last week by report.
He has paroxysmal atrial fibrillation 2012 (Eliquis) PVI in the distant past. Recurrence of A-fib over time which has been paroxysmal. Currently in sinus.. 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
03/21/2019.
He has history of coronary artery disease (history of stents) and bioprosthetic mitral valve replacement/tricuspid valve repair in 2018. Initial troponin was elevated at 0.097. Repeat troponin 0.306. Third troponin pending.
- According to prior cardiac rehab records he has history of mid LAD stent 07/2017 complicated by occlusion of diagonal vessel ([facility] [place])
- This was followed by admission to [facility] 2017 with heart failure and left ventricular ejection fraction 25 to 30%. 09/2017 GAVIN 45 to 50% then 50 to 55%.
-Echocardiogram at [facility] 12/20/2017 ejection fraction is 50% with apical hypokinesis. Mild LVH. Flattened septum in diastole consistent with RV volume overload. Moderate to severe MR. Moderate TR. Right ventricle is hypokinetic.
Estimated PA pressure 92 mmHg.
He also has hypertension, hyperlipidemia.
He has history of COPD and sleep apnea.
He has prior acute kidney injury with abnormal creatinine. Current creatinine 1.2.
He has history of TIA carotid disease with left carotid endarterectomy 03/09/2018 ([facility]). He also has chronic macrocytic anemia.
Progress Note - National Sales Associate
Subjective
Date of Service: March 11, 2025
Patient seen and examined. Still on 3-4 lpm of oxygen but feels less SOB
Objective
Labs:
03/11/25 08:53
03/11/25 08:53
Labs
Hgb 10.5 g/dL (13.0-18.0) L 03/11/25 08:53
Hct 32.7 % (39.0-52.0) L 03/11/25 08:53
Plt Count 167 10^3/uL (130-400) 03/11/25 08:53
Sodium 141 mmol/L (135-145) 03/11/25 08:53
Potassium 3.7 mmol/L (3.5-5.1) 03/11/25 08:53
BUN 27 mg/dl (9-20) H 03/11/25 08:53
Creatinine 1.0 mg/dL (0.7-1.3) 03/11/25 08:53
Glucose 99 mg/dl (70-99) 03/11/25 08:53
Troponins
03/10/25 03/10/25 03/10/25
02:43 11:40 17:28
Troponin I 0.097 H* 0.306 H* 0.197 H* D
Vital Signs and I&O:
Vital Signs
Temp Pulse Resp BP Pulse Ox
98.6 F 87 20 132/66 96
03/11/25 11:04 03/11/25 11:04 03/11/25 11:04 03/11/25 11:04 03/11/25 11:04
Vital Signs
Temp Pulse Resp BP Pulse Ox
98.6 F 87 20 132/66 96
03/11/25 11:04 03/11/25 11:04 03/11/25 11:04 03/11/25 11:04 03/11/25 11:04
Intake & Output
03/09/25 03/10/25 03/11/25 03/12/25
06:59 06:59 06:59 06:59
Intake Total 480 / 480
Output Total 2175 / 2175
Balance -1695 / -1695
Physical Exam
Physical Exam
GEN: No distress, awake, Ox3
HEENT: supple, anicteric, mmm
LUNGS: decreased BS at bases, no wheezes/rales, on 4 lpm of O2 via NC
CV: Reg, S1/S2, 1/6 syst murmur
ABD: soft, BS+, NT/ND
EXT: No edema, clubbing or cyanosis
NEURO: Gross non-focal
SKIN: No rash, warm, dry, pink
[2025-03-11] MEDS: KCL 20 MEQ PO (12:40)
--- NOTE | 2025-03-11 12:47 | CON.PUL ---
Consultation
Consultation Request
Date/Time Consultation Requested: 03/11
Date/Time Consultation Performed: 03/11
Reason for Consultation: Abnormal imaging, hemoptysis
Medical History
-
History of Present Illness:
History obtained from the chart and from the patient appeared patient is a pleasant 84-year-old male with history of coronary disease, cardiomyopathy, presents with increased shortness of breath, fatigue. Patient also admits to 12 pounds of weight
gain, admits to dietary indiscretion. Patient also describes cough and hemoptysis over the past week. He states it is dark blood mixed with bright blood. He is on chronic anticoagulation. He was admitted for suspected heart failure, where upon
arrival he was found to have a pulse of 82, breathing at 29, 82% on room air, temperature 99.1. EKG with atrial fibrillation. Patient was given Lasix therapy, found to have elevated troponin. Patient also given antibiotics for possible pneumonia.
Admission lactate 2.1, repeat improved to 1.2. We are asked to comment on his radiographic findings and hemoptysis
Since admission, patient states overall symptoms have improved, hemoptysis has improved
At baseline, patient is on nocturnal CPAP. He denies any falls, syncope, blood in urine or stool, fevers.
.
PMH: History of COPD, coronary disease with history of NE history of LAD stent 2016, multiple stents in the past, cardiomyopathy, history of heart failure, EF 25% improved to 50% recently, atrial fibrillation on anticoagulation tachybradycardia
syndrome with permanent pacemaker, hyperlipidemia, GERD, sleep apnea on CPAP, history of renal insufficiency, TIA with carotid disease left carotid endarterectomy March 2018, chronic anemia. History of pleural effusion with drainage around 2015.
History of mitral valve replacement and tricuspid valve repair 2018 at [place]
Past Medical History
Past Medical History: None (See above)
Past Surgical History: None (See above)
Social History
Tobacco: Former Smoker ([id number], quit around 2007. )
Alcohol: Occasional
Drug: None
Personal:
Living: With Family
Employment: Retired (Lives with his at home. Denies acute occupational exposure history. 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
Allergies / Home Medications
Allergies
Allergy/AdvReac Type Severity Reaction Status Date / Time
midazolam (From Versed) AdvReac hallucinati Verified 06/15/24 19:30
on
oxycodone (From Percocet) AdvReac hallucinati Verified 06/15/24 19:30
on
Home Medications
�Medication �Instructions �Recorded �Confirmed �Last Taken �Type
buspirone 15 mg tablet 15 mg PO TID Mental Health/Anxiety 07/30/22 03/10/25 06/14/24 History
empagliflozin 10 mg tablet 10 mg PO DAILY Heart Failure 07/30/22 03/10/25 06/14/24 History
(Jardiance)
famotidine 40 mg tablet (Pepcid) 40 mg PO DAILY Gastrointestinal 07/30/22 03/10/25 06/14/24 History
issue
azelastine 137 mcg (0.1 %) nasal 1 spray intranasal BID Allergies 12/29/23 03/10/25 01/25/24 21:00 History
spray
escitalopram oxalate 20 mg tablet 20 mg PO DAILY Depression 12/29/23 03/10/25 06/14/24 History
(Lexapro)
rosuvastatin 40 mg tablet 40 mg PO HS High Cholesterol 12/29/23 03/10/25 06/13/24 History
sacubitril 97 mg-valsartan 103 mg 1 tab PO BID Heart Failure 12/29/23 03/10/25 06/14/24 History
tablet (Entresto)
therapeutic multivitamin 1 tab PO DAILY Supplement ##0 12/29/23 03/10/25 06/14/24 History
tolterodine 2 mg tablet 2 mg PO BID Urinary Issue 12/29/23 03/10/25 06/14/24 History
albuterol sulfate 90 mcg/actuation 2 puff inhalation R Q6HPRN PRN 06/14/24 03/10/25 Unknown History
aerosol inhaler sob/wheezing
lorazepam 0.5 mg tablet 0.5 mg PO DAILYPRN PRN anxiety #3 06/16/24 03/10/25 Unknown Rx
tabs
apixaban 2.5 mg tablet 2.5 mg PO BID Blood Clot 03/10/25 03/10/25 Unknown History
Prevention/Tx
azelastine 0.05 % eye drops 1 drp ophthalmic (eye) BID 03/10/25 03/10/25 Unknown History
Allergies
furosemide 20 mg tablet 20 mg PO DAILY PRN swelling 03/10/25 03/10/25 Unknown History
Review of Systems
-
All other systems: Negative unless noted
Vitals / Labs / Diagnostic Testing
Vital Signs
Temp Pulse Resp BP Pulse Ox
98.6 F 87 20 132/66 96
03/11/25 11:04 03/11/25 11:04 03/11/25 11:04 03/11/25 11:04 03/11/25 11:04
Lab Data
03/11/25 08:53
03/11/25 08:53
Microbiology
03/10/25 08:02 Blood/Venous Blood Culture - Preliminary
No Growth in 24 hours- Final report to follow
03/10/25 07:47 Blood/Venous Blood Culture - Preliminary
No Growth in 24 hours- Final report to follow
03/10/25 12:31 Urine Legionella Urinary Antigen - Final
Negative for Legionella pneumophila Serogroup 1 antigen.
A negative result does not rule out the possiblity of
Legionella infection due to other serogroups or species of
Legionella. Clinical correlation is recommended.
03/10/25 12:31 Urine Streptococcus pneumoniae Antigen (M - Final
Negative for Streptococcus pneumoniae antigen.
A negative result does not exclude infection with
Streptococcus pneumoniae. Clinical correlation is
recommended.
03/10/25 02:43 Nasal Swab Influenza Types A & B (GIFTY) - Final
Negative for Influenza A & B, NAAT
Negative results must be combined with clinical observations
and patient history.
Nucleic Acid Amplification test (NAAT)performed on the
[employer] NOW platform.
Diagnostic Testing:
Physical Exam
-
HEENT: Normocephalic, Anicteric and Other
Cardiovascular: Irregular Rhythm, Murmur (2/6 systolic murmur), Rub (n), Peripheral Edema (tr) and Calf Tenderness (n)
Respiratory: Wheeze (n), Rales (Few at bases, right greater than left), Rhonchi (n) and Non-Labored Respirations
GI: Soft, Non Distended and Non Tender
Neurology: Awake, Alert, AO x 3 and No Motor Deficits (Able to sit up without assistance)
Skin: Good Color
General: Comfortable
Assessment
-
84-year-old male with complex medical history including heart failure with cardiomyopathy in the past, questionable history of COPD, presents with increased shortness of breath, weight gain, lower extreme edema found to be in heart failure with
elevated troponin. Chest x-ray with bilateral pleural parenchymal disease likely consistent with heart failure. Patient treated with IV Lasix and also given antibiotics at time of admission. We are asked to comment on pulmonary process given
hemoptysis and anticoagulation
Acute hemoptysis x 1 week
Difficult to quantify per patient
Acute hypoxic respiratory insufficiency
82% on room air at admission
Elevated troponin
NSTEMI
Bilateral interstitial changes
Suspected heart failure with pleural effusions
Cannot rule out underlying interstitial process
Weight gain, shortness of breath, increased edema
Dietary discretion, noncompliance with Lasix
Anemia
Elevated lactate, improved
Bifascicular block per EKG
History of pleural effusion with thoracentesis 2014, [facility]
details unclear
Conditions present prior to admission
History of bioprosthetic mitral valve, tricuspid repair 2017, [facility]
History of cardiomyopathy EF 25%, improved to 50% per records
History of coronary disease with multiple stents, LAD stent 2016
Hypertension/hyperlipidemia
Atrial fibrillation with ablation at [place] 2014
On anticoagulation, Tikosyn in the past
Tacky/bradycardia syndrome, PPM
[id number] history of smoking, quit 2007
Sleep apnea on CPAP
History of COVID June 2024
History of COPD, details unclear
Not on home inhalers
Distant history of TIA, left carotid endarterectomy 2017
Plan/recommendations
At this time, patient with complex medical history
Salient features include weight gain, noncompliance with Lasix, dietary indiscretion
Subjectively improved since admission
Patient also states hemoptysis has improved
Eliquis currently held
Moving forward
Reviewed radiographic findings with patient. 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
Mild crackles on exam noted otherwise nontoxic-appearing
No further hemoptysis according the patient since early this morning
Quantify hemoptysis
Sputum culture
Discontinue antibiotics
Repeat chest x-ray 03/12
Discussed with patient potential need for CT imaging but for now would hold off
Will reassess in the a.m.
Hold on repeat starting Eliquis therapy for now, reassess in the a.m.
82% on room air on admission
Wean oxygen as able
Presently 95% on 4 L
Continue CPAP at night, presently pressure only at 5
Patient has CPAP at home, followed by sleep physician Dr. Guillen in [place]
Patient is requesting follow-up from pulmonary standpoint at [place]
We will accommodate as necessary
Reviewed at length with patient. We will follow
[2025-03-11 15:28] VITALS: BP 132/70
--- NOTE | 2025-03-11 16:16 | CM ---
Chart reviewed, home with spouse when stable, no needs.
Plan; Home with spouse no needs.
[2025-03-11 19:00] VITALS: BP 129/75
[2025-03-11] MEDS: CRESTOR 40 MG PO (22:15)
[2025-03-11 23:00] VITALS: BP 141/76
[2025-03-12] VITALS (8 sets, daily range): BP systolic 103–134; BP diastolic 49–81; PULSE 79; O2SAT 92; BMI 29.2
--- NOTE | 2025-03-12 07:43 | W.PN.PUL3 ---
Today's Communication / Plan
-
Chest x-ray pending today
Okay to resume Eliquis, will start 2.5 mg twice a day
Dose may warrant increased to 5 mg twice a day, defer to cardiology
Follow-up for hemoptysis
Wean oxygen
Consider outpatient CT chest
Consider outpatient pulmonary follow-up
Continue nocturnal CPAP
Assessment
-
84-year-old male with complex medical history including heart failure with cardiomyopathy in the past, questionable history of COPD, presents with increased shortness of breath, weight gain, lower extreme edema found to be in heart failure with
elevated troponin. Chest x-ray with bilateral pleural parenchymal disease likely consistent with heart failure. Patient treated with IV Lasix and also given antibiotics at time of admission. We are asked to comment on pulmonary process given
hemoptysis and anticoagulation
Acute hemoptysis x 1 week
Difficult to quantify per patient
Acute hypoxic respiratory insufficiency
82% on room air at admission
Elevated troponin
NSTEMI
Bilateral interstitial changes
Suspected heart failure with pleural effusions
Cannot rule out underlying interstitial process
Weight gain, shortness of breath, increased edema
Dietary discretion, noncompliance with Lasix
Anemia
Elevated lactate, improved
Bifascicular block per EKG
History of pleural effusion with thoracentesis 2014, PATRICIA
details unclear
Conditions present prior to admission
History of bioprosthetic mitral valve, tricuspid repair 2017, [facility]
History of cardiomyopathy EF 25%, improved to 50% per records
History of coronary disease with multiple stents, LAD stent 2016
Hypertension/hyperlipidemia
Atrial fibrillation with ablation at [place] 2014
On anticoagulation, Tikosyn in the past
Tacky/bradycardia syndrome, PPM
[id number] history of smoking, quit 2007
Sleep apnea on CPAP
History of COVID June 2024
History of COPD, details unclear
Not on home inhalers
Distant history of TIA, left carotid endarterectomy 2017
Plan/recommendations
At this time, patient appears to be comfortable
Hemoptysis seems to have resolved
Salient features include weight gain, noncompliance with Lasix, dietary indiscretion
Subjectively improved since admission
Eliquis currently held
Chest x-ray today pending
Moving forward
Reviewed radiographic findings with patient. 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
Mild crackles on exam noted otherwise nontoxic-appearing
No further hemoptysis according the patient since 03/11
Remains off antibiotics, discontinued 03/12
Chest x-ray today pending
Okay to restart Eliquis
Discussed with patient potential need for CT imaging but for now would hold off
Would prefer this is done as an outpatient. Patient has inspector eyeglass/sleep and yearly
Discussed with patient potential for underlying malignancy given hemoptysis. Will require follow-up
82% on room air on admission
Wean oxygen as able
Presently 95% on 4 L
Continue CPAP at night, presently pressure only at 5
Patient has CPAP at home, followed by sleep physician Dr. Guillen in [place]
Patient is requesting follow-up from pulmonary standpoint at [place]
We will accommodate as necessary
Patient may require home oxygen
Reviewed at length with patient. We will follow
DNR status noted
Subjective Data
-
Date of Service:
Date of Service: March 12, 2025
Subjective:
Patient unchanged overall. Denies any further hemoptysis. No significant blood noted on quantification at bedside. Describes chronic cough. Denies chest pain, nausea. Sitting in chair, comfortable, conversant
Objective Data
Data Reviewed
Vital Signs / I&O / Oxygen:
Vital Signs
Temp Pulse Resp BP Pulse Ox
99.0 F 74 20 124/81 89
03/12/25 03:00 03/12/25 03:00 03/12/25 03:00 03/12/25 03:00 03/12/25 03:00
Intake and Output
03/11/25 03/12/25 03/13/25
06:59 06:59 06:59
Intake Total 480 / 480 660 / 660
Output Total 2175 / 2175 450 / 450
Balance -1695 / -1695 210 / 210
SaO2 89
Nasal Cannula flow liters per 4
minute
Physical Exam
General: Comfortable and Other (Large neck)
HEENT: Normocephalic and Anicteric
Cardiovascular: S1-S2, Irregular Rhythm, Murmur (2/6 systolic murmur) and Peripheral Edema (tr)
Respiratory: Wheeze (n), Crackles (Few at base), Rhonchi (n) and Non-Labored Respirations
GI: Soft, Non Distended (Obese) and Non Tender
Neurology: Awake, Alert and No Motor Deficits (Able to sit up without assistance)
Skin: Cyanosis (n), Jaundice (n) and Rash (n)
Labs/Micro/Reports
Microbiology
03/10/25 08:02 Blood/Venous Blood Culture - Preliminary
No Growth in 24 hours- Final report to follow
03/10/25 07:47 Blood/Venous Blood Culture - Preliminary
No Growth in 24 hours- Final report to follow
03/10/25 12:31 Urine Legionella Urinary Antigen - Final
Negative for Legionella pneumophila Serogroup 1 antigen.
A negative result does not rule out the possiblity of
Legionella infection due to other serogroups or species of
Legionella. Clinical correlation is recommended.
03/10/25 12:31 Urine Streptococcus pneumoniae Antigen (M - Final
Negative for Streptococcus pneumoniae antigen.
A negative result does not exclude infection with
Streptococcus pneumoniae. Clinical correlation is
recommended.
03/10/25 02:43 Nasal Swab Influenza Types A & B (GIFTY) - Final
Negative for Influenza A & B, NAAT
Negative results must be combined with clinical observations
and patient history.
Nucleic Acid Amplification test (NAAT)performed on the
[employer] platform.
--- NOTE | 2025-03-12 08:23 | W.PN.CARDCBS ---
Progress Note - Winemaker
Subjective
Date of Service: March 12, 2025
Objective
Labs:
Labs
Hgb 10.5 g/dL (13.0-18.0) L 03/11/25 08:53
Hct 32.7 % (39.0-52.0) L 03/11/25 08:53
Plt Count 167 10^3/uL (130-400) 03/11/25 08:53
Sodium 141 mmol/L (135-145) 03/11/25 08:53
Potassium 3.7 mmol/L (3.5-5.1) 03/11/25 08:53
BUN 27 mg/dl (9-20) H 03/11/25 08:53
Creatinine 1.0 mg/dL (0.7-1.3) 03/11/25 08:53
Glucose 99 mg/dl (70-99) 03/11/25 08:53
Troponins
03/10/25 03/10/25 03/10/25
02:43 11:40 17:28
Troponin I 0.097 H* 0.306 H* 0.197 H* D
Vital Signs and I&O:
Vital Signs
Temp Pulse Resp BP Pulse Ox
97.7 F 74 18 124/73 89
03/12/25 07:15 03/12/25 07:15 03/12/25 07:15 03/12/25 07:15 03/12/25 07:15
Vital Signs
Temp Pulse Resp BP Pulse Ox
97.7 F 74 18 124/73 89
03/12/25 07:15 03/12/25 07:15 03/12/25 07:15 03/12/25 07:15 03/12/25 07:15
Intake & Output
03/10/25 03/11/25 03/12/25 03/13/25
06:59 06:59 06:59 06:59
Intake Total 480 / 480 660 / 660
Output Total 2175 / 2175 450 / 450
Balance -1695 / -1695 210 / 210
[2025-03-12] MEDS: LASIX 40 MG IV (08:34)
[2025-03-12] MEDS: ALDACTONE 12.5 MG PO (08:36)
[2025-03-12] MEDS: FARXIGA 10 MG PO (08:36)
[2025-03-12] MEDS: LEXAPRO 20 MG PO (08:36)
[2025-03-12] MEDS: PEPCID 40 MG PO (08:36)
[2025-03-12] MEDS: DETROL 2 MG PO (08:36)
[2025-03-12] MEDS: BUSPAR 15 MG PO ×3 (08:37→20:55)
[2025-03-12] MEDS: ENTRESTO 97 MG/103 MG 1 TAB PO (08:37)
[2025-03-12] MEDS: MUCINEX 600 MG PO ×2 (08:37→20:55)
[2025-03-12] MEDS: THERAGRAN 1 TABLET PO (08:37)
[2025-03-12 08:46] LABS: Hematocrit 32.3 % (39.0-52.0); Hemoglobin 10.5 g/dL (13.0-18.0); Mean Corp Hgb Conc. 32.5 g/dL (33.0-37.0); Mean Corpuscular Volume 100.3 fL (80.0-94.0); Nucleated Red Blood Cells % 0 % (-); Platelet Count 187 10^3/uL (130-400); Red Cell Dist. Width 14.8 % (11.5-14.5)
[2025-03-12 09:25] LABS: Blood Urea Nitrogen 28 mg/dl (9-20); Calcium 9.6 mg/dl (8.4-10.2); Carbon Dioxide 27 mmol/L (22-30); Chloride 107 mmol/L (98-107); Estimated Creatinine Clearance 67 ml/min; Glucose 92 mg/dl (70-99); Magnesium 2.2 mg/dl (1.6-2.3); Potassium 3.7 mmol/L (3.5-5.1); Sodium 141 mmol/L (135-145); eGFR > 60.00
--- NOTE | 2025-03-12 10:51 | W.PN.CARDCBS ---
Addendum entered and electronically signed by Arsenio Gonzalez DO 03/12/25 20:32:
I saw and examined the patient.
The Track Car Operator's note was reviewed and I agree with the note.
Comment:
Plan:
Cont IV diuresis. Monitor Is and Os, daily wts and cr.
Cr stable. Wt is coming down
EF now 30-35%, had been 50% PATRICIA 2023. Trop peak at 0.3.
Discussed options for ischemic eval and pt was agreeable to cath.
Hold Eliquis in anticipation of cath in 48 hrs.
Add ASA while off Eliquis
Hx Cath in [facility] Jul 2017 with PCI to LAD
Add Coreg with CM and reduce Entresto to allow for more room for bp.
Monitor pulm status given hx COPD and adding beta shamika
Discussed with nursing
Original Note:
Today's Communication / Plan
-
Continue IV diuresis
Replete potassium
Wean oxygen as able
Consider reducing Entresto to half current dose and starting low-dose beta-shamika to optimize medical therapy
Considering ischemic evaluation in here versus [place]. If patient would agree to pursue cardiac catheterization Eliquis would need to be held and patient should be placed on aspirin
Impression / Plan
-
Electrophysiology [facility]: Dr. Ponce
Cardiology [facility]: Dr. Pavon (resident), Dr. Sharpe (attending)
Impression:
Presented 03/10/2025 with shortness of breath and dyspnea on exertion, decline in activity level over the past 5 days
Acute on chronic decompensated heart failure with improved ejection fraction, proBNP 3610
Hypoxemic respiratory failure on presentation
Elevated troponin, peaked 0.306
Ischemic cardiomyopathy, recovered EF on echo in 2023 now found to be reduced on echo this admission at 30 to 35%
Coronary artery disease with mid LAD stent 07/2017
[employer] permanent pacemaker 2018
Mitral valve replacement bioprosthetic (#29 Magna Ease) and tricuspid valve repair (#30 partial ring) 2018 ([facility])
Paroxysmal atrial fibrillation (Eliquis) 2012- history of PVI distant past with recurrence
Hypertension
Hyperlipidemia
History of TIA with carotid disease and left carotid endarterectomy 03/2018
COPD
Sleep apnea on CPAP
Renal insufficiency
Chronic macrocytic anemia
Echo 03/11/2025 with Definity: EF 26% by Drew biplane method and 30 to 35% by visual estimation. Bioprosthetic mitral valve with no mitral regurgitation. Mild aortic stenosis with peak/mean gradient 18/9 mmHg. JUDI 2.09 cm�. Tricuspid valve
with annuloplasty ring without significant regurgitation and normal function.
Echo 08/26/2023 ([place]): EF 50% prosthetic mitral valve with peak gradient 5, mean gradient 2. Aortic valve sclerosis without significant stenosis. Tricuspid valve annuloplasty ring with trace tricuspid regurgitation.
Pharmacologic stress test 12/2023 ([place]): EF 44% with fixed, large severely reduced anteroapical perfusion defect consistent with infarction and no residual ischemia.
Left heart catheterization July 2017 ([facility]): Moderate to severe increased RVSP and PAP. LVEDP significantly elevated. Total occlusion of LAD at S1 status post DOUG. Large D1 occluded following PTCA/DOUG. Left circumflex and OM with LI. RCA
without significant stenosis.
Event monitor November 2021: Predominantly sinus rhythm with possible atrial and ventricular pacing. Super ventricular tachycardia max 5 beats at 146 bpm
Plan:
He presented 03/10/2025 with decompensated heart failure after family was visiting from out of the country. He was off of his usual diet. He began having dyspnea on exertion, weight gain, abdominal bloating and fatigue perhaps 5 days ago. He denied
chest pain but did notice decline in activity level such as taking out the trash.
Hypoxemic respiratory failure on presentation heart failure decompensation acute on chronic with previously improved left ventricular ejection fraction
Patient reports a dietary indiscretion recently due to having family in town
Prior history of ejection fraction 20 to 25% in 2017 by report recovered to 50% now found to be reduced at 30 to 35% on repeat echo this admission
Continue IV diuresis with Lasix, weight down 6 pounds since admission
K+ 3.7, Replete potassium will give 40 meq x1
Noted to have desaturation with ambulation while off oxygen 03/12/25, repeat chest x-ray 03/11/2025 shows small bilateral pleural effusions although improved compared to prior. Wean oxygen as able
Continue guideline directed medical treatment that he was on prehospitalization (Entresto/SGLT2 inhibitor). Aldactone 12.5 mg daily added 03/11/2025, watch potassium/creatinine.
Given reduced ejection fraction consider adding low-dose beta-shamika. Patient reports she had hypotension previously with metoprolol. Could consider reducing Entresto to half current dose and initiating low-dose Toprol or Coreg to see if patient
would tolerate
Coronary artery disease status post LAD stent 2016
Abnormal troponins, peaked at 0.306. Likely non-ischemic myocardial injury due to acute HF but can not exclude progression of CAD, although he denies chest pain.
Patient scheduled to see outpatient cardiology on 03/18/2025. However given newly reduced ejection fraction discussed pursuing ischemic evaluation here with possible stress test or catheterization. Patient is considering ischemic evaluation here.
He did get a dose of Eliquis 03/12/2025 so if we would go catheterization route Eliquis should be held and he should be placed on aspirin until Eliquis is resumed
Aggressive risk factor modification
Lipids 03/11/2025 TC 126, HDL 46, LDL 66, triglycerides 72. Continue high-dose statin
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
Echo with stable gradients and no significant regurgitation on valve replacement/repairs
Blood pressure - Stable on treatment, monitor with addition of aldactone.
Paroxysmal atrial fibrillation distant PVI
Currently in sinus rhythm.
Patient did have hemoptysis suspect related to coughing. Was evaluated by pulmonary who felt patient was safe to resume Eliquis. Resume Eliquis dosing 5 mg twice daily given stable creat that is less than 1.5.
[employer] permanent pacemaker 2019
Pacemaker interrogation performed by [employer] rep 03/11/2025: Patient has 5 years of battery life remaining. There were no atrial or ventricular arrhythmias noted on device interrogation. Patient is not pacemaker dependent. He did have brief
episodes of PMT (pacemaker mediated tachycardia) and adjustments/reprogramming was performed on his device to limit this from occurring. Otherwise device function was normal.
History of COPD, possible bronchitis/pneumonia. Initially on antibiotics however discontinued.
Noted to have very mild hemoptysis on admission. Has been cleared by pulmonary to resume anticoagulation.
Repeat chest x-ray 03/12 with improved but not resolved pleural effusions
Continue treatment of sleep apnea with CPAP
Anemia noted. stable hgb 10.5
History of renal insufficiency noted, creat stable at 1.0
History of TIA with prior carotid intervention.
Records obtained and reviewed from outpatient cardiology office with above documentation reflecting information from these records.
History of Present Illness 03/10/2025:
Patient is known to [facility]. He presented with shortness of breath and dyspnea on exertion, decline in activity level over the past 5 days. His family was visiting from out of the country and he was eating salty
foods. He has gained by report 12 pounds of fluid weight over the past week or week and a half secondary to dietary indiscretion. He was not taking his as needed diuretic. He has known heart failure with preserved (improved) ejection fraction
(previously reduced left ventricular ejection fraction in 2017 25 to 30%). proBNP 3610.
On presentation to the ER he was noted to have acute pulmonary edema and pleural effusions. Hypoxemic respiratory failure. In addition bronchitis versus pneumonia. Lactic acidosis initially noted. Last week he also developed cough with hemoptysis
last week by report.
He has paroxysmal atrial fibrillation 2013 (Eliquis) PVI in the distant past. Recurrence of A-fib over time which has been paroxysmal. Currently in sinus.. 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
03/21/2019.
He has history of coronary artery disease (history of stents) and bioprosthetic mitral valve replacement/tricuspid valve repair in 2018. Initial troponin was elevated at 0.097. Repeat troponin 0.306. Third troponin pending.
- According to prior cardiac rehab records he has history of mid LAD stent 07/2017 complicated by occlusion of diagonal vessel ([facility])
- This was followed by admission to [place] [address] with heart failure and left ventricular ejection fraction 25 to 30%. 09/2017 GAVIN 45 to 50% then 50 to 55%.
-Echocardiogram at [facility] 12/20/2017 ejection fraction is 50% with apical hypokinesis. Mild LVH. Flattened septum in diastole consistent with RV volume overload. Moderate to severe MR. Moderate TR. Right ventricle is hypokinetic.
Estimated PA pressure 92 mmHg.
He also has hypertension, hyperlipidemia.
He has history of COPD and sleep apnea.
He has prior acute kidney injury with abnormal creatinine. Current creatinine 1.2.
He has history of TIA carotid disease with left carotid endarterectomy 03/09/2018 ([facility] He also has chronic macrocytic anemia.
Progress Note - Exterminator Termite
Subjective
Date of Service: March 12, 2025
Patient seen and examined. Patient lying in bed on CPAP. Patient still complains of shortness of breath particularly with ambulation. Denies chest pain.
Objective
Labs:
03/12/25 08:30
03/12/25 08:30
Labs
Hgb 10.5 g/dL (13.0-18.0) L 03/12/25 08:30
Hct 32.3 % (39.0-52.0) L 03/12/25 08:30
Plt Count 187 10^3/uL (130-400) 03/12/25 08:30
Sodium 141 mmol/L (135-145) 03/12/25 08:30
Potassium 3.7 mmol/L (3.5-5.1) 03/12/25 08:30
BUN 28 mg/dl (9-20) H 03/12/25 08:30
Creatinine 0.9 mg/dL (0.7-1.3) 03/12/25 08:30
Glucose 92 mg/dl (70-99) 03/12/25 08:30
Troponins
03/10/25 03/10/25 03/10/25
02:43 11:40 17:28
Troponin I 0.097 H* 0.306 H* 0.197 H* D
Vital Signs and I&O:
Vital Signs
Temp Pulse Resp BP Pulse Ox
97.7 F 74 18 124/73 89
03/12/25 07:15 03/12/25 07:15 03/12/25 07:15 03/12/25 07:15 03/12/25 07:15
Vital Signs
Temp Pulse Resp BP Pulse Ox
97.7 F 74 18 124/73 89
03/12/25 07:15 03/12/25 07:15 03/12/25 07:15 03/12/25 07:15 03/12/25 07:15
Intake & Output
03/10/25 03/11/25 03/12/25 03/13/25
06:59 06:59 06:59 06:59
Intake Total 480 / 480 660 / 660
Output Total 2175 / 2175 450 / 450 725 / 725
Balance -1695 / -1695 210 / 210 -725 / -725
Physical Exam
Physical Exam
GEN: No distress, awake, Ox3
HEENT: supple, anicteric, mmm
LUNGS: decreased BS at bases, no wheezes/rales, on 2lpm O2 via NC
CV: Reg, S1/S2, 1/6 syst murmur
ABD: soft, BS+, NT/ND
EXT: Trace edema, clubbing or cyanosis
NEURO: Gross non-focal
SKIN: No rash, warm, dry, pink
--- NOTE | 2025-03-12 11:33 | CM ---
Addendum entered by Griselda Torres 03/12/25 14:12:
After speaking to the LAY UP OPERATOR, the Pt is now considering having a cardiac catheterization.Will hold on offering VN post discharge. Will follow for updates to the discharge plan.
Original Note:
Chart reviewed. Met with pt at bedside. On O2 via N/C. Remains on IV lasix.
Plan: D/C home with no needs.
--- NOTE | 2025-03-12 13:30 | W.PN.HOSP.TC ---
Today's Communication/Plan
-
Resume Eliquis
Continue IV Lasix. Appreciate cardiology
O2 saturation dropped with ambulation into the 80s -- needs oxygen on ambulation
Assessment / Plan
Assessment / Plan
Physical Exam
General: Well Developed, Well Nourished, No Apparent Distress and Comfortable
HEENT: NormoCephalic, Anicteric and Moist mucous membranes
Respiratory: Decreased Breath Sounds
Cardiac: S1/S2 and Regular Rhythm
GI: Soft, Non Tender and Non Distended
Genito-urinary: Deferred by me
Musculoskeletal: No Cyanosis. Edema, Left Lower Extremity and Edema, Right Lower Extremity
Skin: Warm and Dry
Neuro: AO x 3
Hematologic/Lymphatic: No Lymphadenopathy
Psych: Calm
Assessment/Plan
84-year-old male with history of heart failure here complaining of increased dyspnea on exertion over the 5 days prior to presentation. Symptoms started 03/05/25 and subsequently developed cough with hemoptysis on on 03/07/25.
He admitted to 12 pound weight gain over the past week and a half prior to arrival. He believes it is dietary indiscretion related as he was eating a lot of salty foods, [place] from [place].
He is prescribed as needed Lasix but decided not to take it for unclear reasons.
Denies orthopnea.
Denies fevers or chills. Not on home oxygen. Denies sick contacts.
Acute hypoxic respiratory failure -likely multifactorial etiology including acute pulmonary edema, pleural effusions, bronchitis versus pneumonia. Required Ventimask and nonrebreather in the emergency room. Transition to mid flow and wean down as
able. Still needs oxygen with ambulation. Not on home oxygen.
Acute on chronic heart failure with preserved EF -presentation with pulmonary edema, pleural effusions, BNP elevation, weight gain. Continue IV Lasix. Check daily weights.
Concern for possible Sepsis -unclear if due to bronchitis versus pneumonia versus other etiology. Presentation with low-grade fever and leukocytosis. Chest x-ray noted.
Blood cultures with no growth to date. Urinary antigens negative.
Lactic acidosis, 2.1 on admission, repeat 1.2.
Antibiotics were previously given for pneumonia, however per pulmonary, antibiotics no longer needed and have been stopped.
Troponin elevation - Denies chest pain. Doubt ACS. EKG shows bifascicular block, age undetermined anteroseptal infarct. Possibly acute nonischemic myocardial injury due to acute illness.
Hemoptysis -suspect related to cough and underlying chronic anticoagulation with Eliquis. Resume Eliquis. Appreciate pulmonary.
Paroxysmal atrial fibrillation - Continue Eliquis
Bioprosthetic MVR -2018, [facility].
COPD without exacerbation -no wheezing on exam. Monitor for now.
Chronic macrocytic anemia -hemoglobin at baseline. Monitor for now.
Essential hypertension -stable.
Hyperlipidemia -rosuvastatin.
Obesity due to excess calories
DNR
Anticipated Discharge: 24 - 48 hours
Subjective/Interval History
-
Date of Service: March 12, 2025
Patient was seen and examined. He denied any chest pain or SOB. He reported his hemoptysis resolved.
Objective Data
-
Labs:
Laboratory Results
03/12/25
08:30
WBC 8.7
Hgb 10.5 L
Hct 32.3 L
Plt Count 187
Sodium 141
Potassium 3.7
Chloride 107
Carbon Dioxide 27
BUN 28 H
Creatinine 0.9
Glucose 92
Calcium 9.6
Vital Signs:
Vital Signs
Temp Pulse Resp BP Pulse Ox
97.8 F 85 16 103/70 98
03/12/25 11:12 03/12/25 11:12 03/12/25 11:12 03/12/25 11:12 03/12/25 11:12
I&O
03/11/25 03/12/25 03/13/25
06:59 06:59 06:59
Intake Total 480 / 480 660 / 660
Output Total 2175 / 2175 450 / 450 725 / 725
Balance -1695 / -1695 210 / 210 -725 / -725
[2025-03-12] MEDS: ELIQUIS 5 MG PO (14:16)
[2025-03-12] MEDS: KCL 40 MEQ PO (14:16)
--- NOTE | 2025-03-12 17:39 | W.PN.UPDATE ---
Update Note
Progress Note Update
Just now, I called patient's Liz and updated her on patient's current medical problems and management. I answered all of her questions and concerns to satisfaction.
[2025-03-12] MEDS: CRESTOR 40 MG PO (20:54)
[2025-03-12] MEDS: DETROL PO ×2 (20:55→21:05)
[2025-03-12] MEDS: COREG PO (20:55)
[2025-03-12] MEDS: ENTRESTO 49 MG/51 MG 1 TAB PO (20:55)
[2025-03-12] MEDS: COREG 3.125 MG PO (21:03)
--- NOTE | 2025-03-12 22:47 | PTCARENOTE ---
While vital signs were being collected, this patient became agitated with hospital staff. Patient was yelling that he had 'been waiting since 4 PM for help because his roommate wasn`t picking his phone up'. The patient continue to wave his hands in
the staffs face and yelled that we were not helping him with plan of care. This RN explained to the patient multiple times to the patient his medications, plan of care, and providers. Patient aggressively walked into the hallway and called staff
'incompetent'. Randa carl was called, and security helped staff deescalate the patient. Patient was assisted back to his bed. CPAP placed on patient. Bed alarm remains in place.
[2025-03-12] MEDS: ATIVAN 0.5 MG PO (23:17)
[2025-03-13] MEDS: TYLENOL 650 MG PO (01:05)
[2025-03-13 03:06] VITALS: BP 118/53
[2025-03-13 06:00] VITALS: BMI 28.8
[2025-03-13 07:11] VITALS: BP 127/60
--- NOTE | 2025-03-13 07:58 | W.PN.PUL3 ---
Today's Communication / Plan
-
Resume anticoagulation
Follow for recurrent hemoptysis
PT/OT, assess for home oxygen
Patient can follow-up with pulmonary/sleep and [place]
He is welcome to follow up locally if he would like, information left in chart
Disposition efforts
Assessment
-
84-year-old male with complex medical history including heart failure with cardiomyopathy in the past, questionable history of COPD, presents with increased shortness of breath, weight gain, lower extreme edema found to be in heart failure with
elevated troponin. Chest x-ray with bilateral pleural parenchymal disease likely consistent with heart failure. Patient treated with IV Lasix and also given antibiotics at time of admission. We are asked to comment on pulmonary process given
hemoptysis and anticoagulation
Acute hemoptysis x 1 week
Difficult to quantify per patient
Acute hypoxic respiratory insufficiency
82% on room air at admission
Elevated troponin
NSTEMI
Bilateral interstitial changes
Suspected heart failure with pleural effusions
Cannot rule out underlying interstitial process
Weight gain, shortness of breath, increased edema
Dietary discretion, noncompliance with Lasix
Anemia
Elevated lactate, improved
Bifascicular block per EKG
History of pleural effusion with thoracentesis 2014, PATRICIA
details unclear
Conditions present prior to admission
History of bioprosthetic mitral valve, tricuspid repair 2017, PATRICIA
History of cardiomyopathy EF 25%, improved to 50% per records
History of coronary disease with multiple stents, LAD stent 2016
Hypertension/hyperlipidemia
Atrial fibrillation with ablation at [place] 2014
On anticoagulation, Tikosyn in the past
Tacky/bradycardia syndrome, PPM
34-[id number] history of smoking, quit 2007
Sleep apnea on CPAP
History of COVID June 2024
History of COPD, details unclear
Not on home inhalers
Distant history of TIA, left carotid endarterectomy 2017
Plan/recommendations
At this time, patient appears to be comfortable
Hemoptysis seems to have resolved
Salient features include weight gain, noncompliance with Lasix, dietary indiscretion
Subjectively improved since admission
Eliquis currently held
Chest x-ray 03/12 with significant improvement, per my review
Moving forward
Reviewed radiographic findings with patient. 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
Mild crackles on exam noted otherwise nontoxic-appearing
No further hemoptysis according the patient since 03/11
Remains off antibiotics, discontinued 03/12
Chest x-ray today pending
Okay to restart Eliquis. Dosing will be deferred to cardiology
Discussed with patient potential need for CT imaging but for now would hold off
Would prefer this is done as an outpatient. Patient has duct layer helper/sleep and yearly
Discussed with patient potential for underlying malignancy given hemoptysis. Will require follow-up
82% on room air on admission
Wean oxygen as able
Presently 95% on 4 L
Continue CPAP at night, presently pressure only at 5
Patient has CPAP at home, followed by sleep physician Dr. Guillen in [place]
Patient is requesting follow-up from pulmonary standpoint at [place]
We will accommodate as necessary
Patient may require home oxygen
Reviewed at length with patient. We will follow
DNR status noted
Subjective Data
-
Date of Service:
Date of Service: March 13, 2025
Subjective:
Patient is without complaints. Has mild compromise have further hemoptysis, chest pain. Using CPAP at night.
Objective Data
Data Reviewed
Vital Signs / I&O / Oxygen:
Vital Signs
Temp Pulse Resp BP Pulse Ox
97.6 F 69 17 118/53 92
03/13/25 03:06 03/13/25 03:06 03/13/25 03:06 03/13/25 03:06 03/13/25 03:06
Intake and Output
03/12/25 03/13/25 03/14/25
06:59 06:59 06:59
Intake Total 660 / 660 1540 / 1540
Output Total 450 / 450 1600 / 1600
Balance 210 / 210 -60 / -60
SaO2 92
Nasal Cannula flow liters per 2
minute
Physical Exam
General: Comfortable and Other (Large neck)
HEENT: Normocephalic and Anicteric
Cardiovascular: S1-S2, Irregular Rhythm, Murmur (2/6 systolic murmur) and Peripheral Edema (tr)
Respiratory: Wheeze (n), Crackles (Few at base), Rhonchi (n) and Non-Labored Respirations
GI: Soft, Non Distended (Obese) and Non Tender
Neurology: Awake, Alert and No Motor Deficits (Able to sit up without assistance)
Skin: Cyanosis (n), Jaundice (n) and Rash (n)
Labs/Micro/Reports
Microbiology
03/10/25 07:47 Blood/Venous Blood Culture - Preliminary
No Growth in 72 hours- Final report to follow
03/12/25 08:45 Sputum Respiratory Culture - Final
03/12/25 08:45 Sputum Gram Stain - Final
03/10/25 08:02 Blood/Venous Blood Culture - Preliminary
No Growth in 48 hours- Final report to follow
03/10/25 12:31 Urine Legionella Urinary Antigen - Final
Negative for Legionella pneumophila Serogroup 1 antigen.
A negative result does not rule out the possiblity of
Legionella infection due to other serogroups or species of
Legionella. Clinical correlation is recommended.
03/10/25 12:31 Urine Streptococcus pneumoniae Antigen (M - Final
Negative for Streptococcus pneumoniae antigen.
A negative result does not exclude infection with
Streptococcus pneumoniae. Clinical correlation is
recommended.
[2025-03-13 08:26] LABS: Hematocrit 29.9 % (39.0-52.0); Hemoglobin 9.9 g/dL (13.0-18.0); Mean Corp Hgb Conc. 33.1 g/dL (33.0-37.0); Mean Corpuscular Volume 100.3 fL (80.0-94.0); Nucleated Red Blood Cells % 0 % (-); Platelet Count 187 10^3/uL (130-400); Red Cell Dist. Width 14.6 % (11.5-14.5)
[2025-03-13] MEDS: ALDACTONE 12.5 MG PO (08:38)
[2025-03-13] MEDS: COREG 3.125 MG PO ×2 (08:38→19:34)
[2025-03-13] MEDS: BUSPAR 15 MG PO ×3 (08:38→21:04)
[2025-03-13] MEDS: FARXIGA 10 MG PO (08:39)
[2025-03-13] MEDS: DETROL 2 MG PO ×2 (08:39→19:34)
[2025-03-13] MEDS: ENTRESTO 49 MG/51 MG 1 TAB PO ×2 (08:39→19:34)
[2025-03-13] MEDS: LEXAPRO 20 MG PO (08:40)
[2025-03-13] MEDS: MUCINEX 600 MG PO ×2 (08:40→19:34)
[2025-03-13] MEDS: THERAGRAN 1 TABLET PO (08:40)
[2025-03-13] MEDS: PEPCID 40 MG PO (08:40)
[2025-03-13] MEDS: LOW STRENGTH ASPIRIN 324 MG PO (08:45)
[2025-03-13] MEDS: LASIX 40 MG IV (08:46)
[2025-03-13 09:04] LABS: Blood Urea Nitrogen 24 mg/dl (9-20); Calcium 9.0 mg/dl (8.4-10.2); Carbon Dioxide 29 mmol/L (22-30); Chloride 105 mmol/L (98-107); Estimated Creatinine Clearance 61 ml/min; Glucose 93 mg/dl (70-99); Potassium 3.8 mmol/L (3.5-5.1); Sodium 141 mmol/L (135-145); eGFR > 60.00
--- NOTE | 2025-03-13 10:56 | CM ---
Reviewed chart. Met with pt bedside. Cardiac cath planned for tomorrow
Plan: d/c plan pending results of cardiac cath
[2025-03-13 11:08] VITALS: BP 107/44
[2025-03-13 15:12] VITALS: BP 104/61
--- NOTE | 2025-03-13 15:40 | W.PN.CARDCBS ---
Addendum entered and electronically signed by Avis Reese DO 03/13/25 21:48:
I saw and examined the patient.
The Tonger's note was reviewed and I agree with the note.
Comment: Patient seen and examined. Offers no new complaints.
GEN: NAD
HEENT: mmm
LUNGS: decreased BS at bases, no wheezes/rales, on 2lpm O2 via NC
CV: Reg, S1/S2, 1/6 syst murmur
ABD: soft, BS+, NT/ND
EXT: Trace edema
Plan:
Hypoxemic respiratory failure on presentation heart failure decompensation acute on chronic with previously improved left ventricular ejection fraction
Patient reports a dietary indiscretion recently due to having family in town
Prior history of ejection fraction 20 to 25% in 2017 by report recovered to 50% now found to be newly reduced at 30 to 35% on repeat echo this admission
Continue IV diuresis with Lasix, weight down 9 pounds since admission
Continue guideline directed medical treatment Entresto dose was reduced 03/12/2025 to allow for addition of carvedilol 3.125 mg twice a day. Aldactone 12.5 mg daily added 03/11/2025, watch potassium/creatinine
Coronary artery disease status post LAD stent 2017 with abnormal troponin, peaked at 0.306 and newly reduced ejection fraction. Will proceed with left/right heart catheterization 03/14/2025 [ Last dose of Eliquis 03/12/2025 at 2 PM].
ASA 81 mg daily
Continue high-dose statin: Lipids 03/11/2025 TC 126, HDL 46, LDL 66, triglycerides 72.
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
Echo with stable gradients and no significant regurgitation on valve replacement/repairs
Paroxysmal atrial fibrillation distant PVI; [employer] permanent pacemaker 2018
Currently in sinus rhythm.
Patient did have hemoptysis suspect related to coughing. Was evaluated by pulmonary who felt patient was safe to resume Eliquis.
Currently Eliquis on hold in anticipation of cardiac catheterization. Will need resumption of Eliquis after no additional invasive procedures planned
Pacemaker interrogation performed by [employer] rep 03/11/2025: Normal function. Battery life 5 years There were no atrial or ventricular arrhythmias noted on device interrogation. Patient is not pacemaker dependent. He did have brief episodes of
PMT (pacemaker mediated tachycardia) and adjustments/reprogramming was performed on his device to limit this from occurring.
Original Note:
Today's Communication / Plan
-
N.p.o. after midnight in anticipation of cardiac catheterization 03/14/2025
Eliquis remains on hold since 03/12/2025
Continue aspirin 81 mg while Eliquis on hold (loaded 03/12)
Continue diuresis
Continue Coreg, Entresto and Aldactone
Impression / Plan
-
Electrophysiology [facility]: Dr. Ponce
Cardiology [facility]: Dr. Pavon (resident), Dr. Sharpe (attending)
Impression:
Presented 03/10/2025 with shortness of breath and dyspnea on exertion, decline in activity level over the past 5 days
Acute on chronic decompensated heart failure with improved ejection fraction, proBNP 3610
Hypoxemic respiratory failure on presentation
Elevated troponin, peaked 0.306
Ischemic cardiomyopathy, recovered EF on echo in 2023 now found to be reduced on echo this admission at 30 to 35%
Coronary artery disease with mid LAD stent 07/2017
[employer] permanent pacemaker 2019
Mitral valve replacement bioprosthetic (#29 Magna Ease) and tricuspid valve repair (#30 partial ring) 2017 ([facility])
Paroxysmal atrial fibrillation (Eliquis) 2012- history of PVI distant past with recurrence
Hypertension
Hyperlipidemia
History of TIA with carotid disease and left carotid endarterectomy 03/2018
COPD
Sleep apnea on CPAP
Renal insufficiency
Chronic macrocytic anemia
Echo 03/11/2025 with Definity: EF 26% by Drew biplane method and 30 to 35% by visual estimation. Bioprosthetic mitral valve with no mitral regurgitation. Mild aortic stenosis with peak/mean gradient 18/9 mmHg. JUDI 2.09 cm�. Tricuspid valve
with annuloplasty ring without significant regurgitation and normal function.
Echo 08/26/2023 ([facility]): EF 50% prosthetic mitral valve with peak gradient 5, mean gradient 2. Aortic valve sclerosis without significant stenosis. Tricuspid valve annuloplasty ring with trace tricuspid regurgitation.
Pharmacologic stress test 12/2023 ([facility]): EF 44% with fixed, large severely reduced anteroapical perfusion defect consistent with infarction and no residual ischemia.
Left heart catheterization July 2017 ([facility]): Moderate to severe increased RVSP and PAP. LVEDP significantly elevated. Total occlusion of LAD at S1 status post DOUG. Large D1 occluded following PTCA/DOUG. Left circumflex and OM with LI. RCA
without significant stenosis.
Event monitor November 2021: Predominantly sinus rhythm with possible atrial and ventricular pacing. Super ventricular tachycardia max 5 beats at 146 bpm
Plan:
He presented 03/10/2025 with decompensated heart failure after family was visiting from out of the country. He was off of his usual diet. He began having dyspnea on exertion, weight gain, abdominal bloating and fatigue perhaps 5 days ago. He denied
chest pain but did notice decline in activity level such as taking out the trash.
Hypoxemic respiratory failure on presentation heart failure decompensation acute on chronic with previously improved left ventricular ejection fraction
Patient reports a dietary indiscretion recently due to having family in town
Prior history of ejection fraction 20 to 25% in 2017 by report recovered to 50% now found to be reduced at 30 to 35% on repeat echo this admission
Continue IV diuresis with Lasix, weight down 9 pounds since admission
K+ 3.8, Replete potassium will give 40 meq x1
Noted to have desaturation with ambulation while off oxygen 03/12/25, repeat chest x-ray 03/12/2025 shows small bilateral pleural effusions although improved compared to prior. Still requiring 2 L of oxygen via nasal cannula wean oxygen as able
Continue guideline directed medical treatment Entresto dose was reduced 03/12/2025 to allow for addition of carvedilol 3.125 mg twice a day. Aldactone 12.5 mg daily added 03/11/2025, watch potassium/creatinine
Coronary artery disease status post LAD stent 2017
Abnormal troponins, peaked at 0.306 and newly reduced ejection fraction. Cannot exclude acute coronary syndrome.
Patient agreeable for ischemic evaluation with cardiac catheterization which has been scheduled for 03/14/2025. Last dose of Eliquis 03/12/2025 at 2 PM. Has remained on hold since then.
Loaded with aspirin 325 mg on 03/12/2025, continues daily 81 mg thereafter.
Aggressive risk factor modification
Lipids 03/11/2025 TC 126, HDL 46, LDL 66, triglycerides 72. Continue high-dose statin
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
Echo with stable gradients and no significant regurgitation on valve replacement/repairs
Blood pressure - Stable on treatment. Entresto reduced to half of prior outpatient dosing, Coreg and Aldactone added this admission
Paroxysmal atrial fibrillation distant PVI
Currently in sinus rhythm.
Patient did have hemoptysis suspect related to coughing. Was evaluated by pulmonary who felt patient was safe to resume Eliquis.
Currently Eliquis on hold in anticipation of cardiac catheterization. Will need resumption of Eliquis after no additional invasive procedures planned
[employer] permanent pacemaker 2018
Pacemaker interrogation performed by [employer] rep 03/11/2025: Patient has 5 years of battery life remaining. There were no atrial or ventricular arrhythmias noted on device interrogation. Patient is not pacemaker dependent. He did have brief
episodes of PMT (pacemaker mediated tachycardia) and adjustments/reprogramming was performed on his device to limit this from occurring. Otherwise device function was normal.
History of COPD, possible bronchitis/pneumonia. Initially on antibiotics however discontinued.
Noted to have very mild hemoptysis on admission. Has been cleared by pulmonary to resume anticoagulation.
Repeat chest x-ray 03/12 with improved but not resolved pleural effusions
Continue treatment of sleep apnea with CPAP
Anemia noted. stable hgb 9.9
History of renal insufficiency noted, creat stable at 1.0
History of TIA with prior carotid intervention.
Records obtained and reviewed from outpatient cardiology office with above documentation reflecting information from these records.
History of Present Illness 03/10/2025:
Patient is known to [facility]. He presented with shortness of breath and dyspnea on exertion, decline in activity level over the past 5 days. His family was visiting from out of the country and he was eating salty
foods. He has gained by report 12 pounds of fluid weight over the past week or week and a half secondary to dietary indiscretion. He was not taking his as needed diuretic. He has known heart failure with preserved (improved) ejection fraction
(previously reduced left ventricular ejection fraction in 2017 25 to 30%). proBNP 3610.
On presentation to the ER he was noted to have acute pulmonary edema and pleural effusions. Hypoxemic respiratory failure. In addition bronchitis versus pneumonia. Lactic acidosis initially noted. Last week he also developed cough with hemoptysis
last week by report.
He has paroxysmal atrial fibrillation 2012 (Eliquis) PVI in the distant past. Recurrence of A-fib over time which has been paroxysmal. Currently in sinus.. 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
03/21/2019.
He has history of coronary artery disease (history of stents) and bioprosthetic mitral valve replacement/tricuspid valve repair in 2018. Initial troponin was elevated at 0.097. Repeat troponin 0.306. Third troponin pending.
- According to prior cardiac rehab records he has history of mid LAD stent 07/2017 complicated by occlusion of diagonal vessel ([facility])
- This was followed by admission to [facility] 2017 with heart failure and left ventricular ejection fraction 25 to 30%. 09/2017 GAVIN 45 to 50% then 50 to 55%.
-Echocardiogram at [facility] 12/20/2017 ejection fraction is 50% with apical hypokinesis. Mild LVH. Flattened septum in diastole consistent with RV volume overload. Moderate to severe MR. Moderate TR. Right ventricle is hypokinetic.
Estimated PA pressure 92 mmHg.
He also has hypertension, hyperlipidemia.
He has history of COPD and sleep apnea.
He has prior acute kidney injury with abnormal creatinine. Current creatinine 1.2.
He has history of TIA carotid disease with left carotid endarterectomy 03/09/2018 ([facility]). He also has chronic macrocytic anemia.
Progress Note - Resident Associate
Subjective
Date of Service: March 13, 2025
Patient seen and examined. Patient resting comfortably in bed. Overall reports he is feeling well. Denies chest pain or shortness of breath at rest.
Objective
Labs:
03/13/25 07:46
03/13/25 07:46
Labs
Hgb 9.9 g/dL (13.0-18.0) L 03/13/25 07:46
Hct 29.9 % (39.0-52.0) L 03/13/25 07:46
Plt Count 187 10^3/uL (130-400) 03/13/25 07:46
Sodium 141 mmol/L (135-145) 03/13/25 07:46
Potassium 3.8 mmol/L (3.5-5.1) 03/13/25 07:46
BUN 24 mg/dl (9-20) H 03/13/25 07:46
Creatinine 1.0 mg/dL (0.7-1.3) 03/13/25 07:46
Glucose 93 mg/dl (70-99) 03/13/25 07:46
Troponins
03/10/25
17:28
Troponin I 0.197 H* D
Vital Signs and I&O:
Vital Signs
Temp Pulse Resp BP Pulse Ox
97.3 F 60 18 107/44 93
03/13/25 11:08 03/13/25 11:08 03/13/25 11:08 03/13/25 11:08 03/13/25 11:08
Vital Signs
Temp Pulse Resp BP Pulse Ox
97.3 F 60 18 107/44 93
03/13/25 11:08 03/13/25 11:08 03/13/25 11:08 03/13/25 11:08 03/13/25 11:08
Intake & Output
03/11/25 03/12/25 03/13/25 03/14/25
06:59 06:59 06:59 06:59
Intake Total 480 / 480 660 / 660 1540 / 1540
Output Total 2175 / 2175 450 / 450 1600 / 1600
Balance -1695 / -1695 210 / 210 -60 / -60
Physical Exam
Physical Exam
GEN: No distress, awake, Ox3
HEENT: supple, anicteric, mmm
LUNGS: decreased BS at bases, no wheezes/rales, on 2lpm O2 via NC
CV: Reg, S1/S2, 1/6 syst murmur
ABD: soft, BS+, NT/ND
EXT: Trace edema, clubbing or cyanosis
NEURO: Gross non-focal
SKIN: No rash, warm, dry, pink
[2025-03-13] MEDS: KCL 40 MEQ PO (16:04)
--- NOTE | 2025-03-13 16:17 | W.PN.HOSP.TC ---
Today's Communication/Plan
-
Cardiac cath expected tomorrow (please see cardiology note)
Eliquis being held for cardiac cath
Continue diuresis
Assessment / Plan
Assessment / Plan
Physical Exam
General: Well Developed, Well Nourished, No Apparent Distress and Comfortable
HEENT: NormoCephalic, Anicteric and Moist mucous membranes
Respiratory: Decreased Breath Sounds
Cardiac: S1/S2 and Regular Rhythm
GI: Soft, Non Tender and Non Distended
Genito-urinary: Deferred by me
Musculoskeletal: No Cyanosis. Edema, Left Lower Extremity and Edema, Right Lower Extremity
Skin: Warm and Dry
Neuro: AO x 3
Hematologic/Lymphatic: No Lymphadenopathy
Psych: Calm
Assessment/Plan
84-year-old male with history of heart failure here complaining of increased dyspnea on exertion over the 5 days prior to presentation. Symptoms started 03/05/25 and subsequently developed cough with hemoptysis on on 03/07/25.
He admitted to 12 pound weight gain over the past week and a half prior to arrival. He believes it is dietary indiscretion related as he was eating a lot of salty foods, [place]
He is prescribed as needed Lasix but decided not to take it for unclear reasons.
Denies orthopnea.
Denies fevers or chills. Not on home oxygen. Denies sick contacts.
Acute hypoxic respiratory failure -likely multifactorial etiology including acute pulmonary edema, pleural effusions, bronchitis versus pneumonia. Required Ventimask and nonrebreather in the emergency room. Transition to mid flow and wean down as
able. Still needs oxygen with ambulation. Not on home oxygen.
Acute on chronic heart failure with preserved EF -presentation with pulmonary edema, pleural effusions, BNP elevation, weight gain. Continue IV Lasix. Check daily weights. Added Coreg with CM and reduce Entresto to allow for more room for bp.
Concern for possible Sepsis -unclear if due to bronchitis versus pneumonia versus other etiology. Presentation with low-grade fever and leukocytosis. Chest x-ray noted.
Blood cultures with no growth to date. Urinary antigens negative.
Lactic acidosis, 2.1 on admission, repeat 1.2.
Antibiotics were previously given for pneumonia, however per pulmonary, antibiotics no longer needed and have been stopped.
History of Cath in [facility] Jul 2017 with PCI to LAD
Troponin elevation - Denies chest pain. Doubt ACS. EKG shows bifascicular block, age undetermined anteroseptal infarct. Possibly acute nonischemic myocardial injury due to acute illness.
Hemoptysis -suspect related to cough and underlying chronic anticoagulation with Eliquis. Resume Eliquis. Appreciate pulmonary.
Paroxysmal atrial fibrillation - per cardiology, hold Eliquis in anticipation of cardiac cath in ~24 hrs. Continue Aspirin while off Eliquis
Bioprosthetic MVR -2018, [facility].
COPD without exacerbation -no wheezing on exam. Monitor for now.
Chronic macrocytic anemia -hemoglobin at baseline. Monitor for now.
Essential hypertension -stable.
Hyperlipidemia -rosuvastatin.
Obesity due to excess calories
DNR
DVT Prophylaxis: Lovenox (since Eliquis is being held)
Anticipated Discharge: 24 - 48 hours
Subjective/Interval History
-
Date of Service: March 13, 2025
Patient was seen and examined. He denied any new symptoms or complaints. No bloody cough.
Objective Data
-
Labs:
Laboratory Results
03/13/25
07:46
WBC 7.7
Hgb 9.9 L
Hct 29.9 L
Plt Count 187
Sodium 141
Potassium 3.8
Chloride 105
Carbon Dioxide 29
BUN 24 H
Creatinine 1.0
Glucose 93
Calcium 9.0
Vital Signs:
Vital Signs
Temp Pulse Resp BP Pulse Ox
97.8 F 81 18 104/61 94
03/13/25 15:12 03/13/25 15:12 03/13/25 15:12 03/13/25 15:12 03/13/25 15:12
I&O
03/12/25 03/13/25 03/14/25
06:59 06:59 06:59
Intake Total 660 / 660 1540 / 1540
Output Total 450 / 450 1600 / 1600
Balance 210 / 210 -60 / -60
[2025-03-13] MEDS: LOVENOX 40 MG SC (17:27)
[2025-03-13 19:00] VITALS: BP 148/99
[2025-03-13] MEDS: CRESTOR 40 MG PO (21:04)
[2025-03-13] MEDS: ATIVAN 0.5 MG PO (22:07)
[2025-03-13 23:00] VITALS: BP 127/63
[2025-03-14] VITALS (12 sets, daily range): BP systolic 97–140; BP diastolic 55–74; PULSE 62; O2SAT 95; BMI 28.4
[2025-03-14 08:35] LABS: Blood Urea Nitrogen 26 mg/dl (9-20); Calcium 9.2 mg/dl (8.4-10.2); Carbon Dioxide 30 mmol/L (22-30); Chloride 103 mmol/L (98-107); Estimated Creatinine Clearance 61 ml/min; Glucose 91 mg/dl (70-99); Magnesium 2.2 mg/dl (1.6-2.3); Potassium 3.8 mmol/L (3.5-5.1); Sodium 139 mmol/L (135-145); eGFR > 60.00
--- NOTE | 2025-03-14 08:42 | ITS.CL.CATH ---
Clock Repair Technician - Catheterization
Cardiac Catheterization
Procedure Report:
LEFT HEART CATHETERIZATION
Date of Procedure: March 14, 2025
Referring: Arsenio Gonzalez D.O.
PROCEDURES:
1. Left heart catheterization, coronary angiogram.
2. Moderate sedation.
INDICATION: Concern for NSTEMI and Cardiomyopathy.
ACCESS: Right radial artery, 6Fr. sheath, under US guidance.
HEMODYNAMICS : (mmHg)
AO (s/d) : 162/72
LVEDP : 18
No significant gradient across the aortic valve to suggest aortic stenosis.
CORONARY FINDINGS
Dominance: Right
Left Main Trunk (LMT): Large caliber vessel that gives rise to the LAD and LCx branches. There is minimal luminal irregularities.
Left Anterior Descending Artery (LAD): Large caliber vessel that gives off 2 major diagonal branches as it courses along the anterior inter-ventricular groove before wrapping around the cardiac apex. Distal LAD has eccentric 30 to 40% stenosis. D2
has an ostial 70-75% stenosis. Mid LAD stent is widely patent.
Left Circumflex Artery (LCx): Large caliber vessel that gives off 1 major obtuse marginal (OM) branch as it courses along the atrio-ventricular (AV) groove. There is mild diffuse atherosclerotic plaque.
Right Coronary Artery (RCA): Large caliber dominant vessel that gives rise to the posterior descending artery (RPDA) and postero-lateral ventricular (RPLV) branches distally. Mid RCA has tubular 40-50% stenosis.
SEDATION: 27 minutes of procedural sedation was utilized. IV Midazolam and IV Fentanyl were administered. An independent medical record technician was present to assist with and help manage the patient's level of consciousness and physiologic status.
RADIATION SUMMARY: Fluoro Time (min): 3.4, Dose (mGy): 337.25, DAP (Gy.cm2) : 22.0
Closure Device: There were no immediate intra-procedural complications. The sheath was pulled in the dentures lab technician and a vascular-band applied to the right wrist for radial artery hemostasis using the patent hemostasis technique.
CONCLUSIONS
1. No obstructive coronary artery disease.
2. LVEDP of 18 mmHg
RECOMMENDATIONS
1. Wean radial band per protocol. Monitor right hand perfusion and for bleeding from the radial site following removal of the vascular-band following trans-radial access.
2. Continue aggressive goal-directed medical therapy for nonischemic cardiomyopathy and risk factor modification for secondary CAD prevention.
3. Hydrate with normal saline to mitigate the risk of contrast-induced acute kidney injury.
4. Outpatient referral for cardiac rehab
Delores Ocasio MD, FACC, [facility] [place]
--- NOTE | 2025-03-14 09:18 | W.PN.PUL3 ---
Today's Communication / Plan
-
Weaned to 1L NC, can likely wean to off, home O2 assessment
Planning for cath today per cards, will review data when available
Continue medications without change today
PT/OT, encouraged OOB
Reviewed plan with patient
Assessment
-
84-year-old male with complex medical history including heart failure with cardiomyopathy in the past, questionable history of COPD, presents with increased shortness of breath, weight gain, lower extreme edema found to be in heart failure with
elevated troponin. Chest x-ray with bilateral pleural parenchymal disease likely consistent with heart failure. Patient treated with IV Lasix and also given antibiotics at time of admission. We are asked to comment on pulmonary process given
hemoptysis and anticoagulation
Acute hemoptysis x 1 week
Difficult to quantify per patient
Acute hypoxic respiratory insufficiency
82% on room air at admission
Elevated troponin
NSTEMI
Bilateral interstitial changes
Suspected heart failure with pleural effusions
Cannot rule out underlying interstitial process
Weight gain, shortness of breath, increased edema
Dietary discretion, noncompliance with Lasix
Anemia
Elevated lactate, improved
Bifascicular block per EKG
History of pleural effusion with thoracentesis 2014, [facility]
details unclear
Conditions present prior to admission
History of bioprosthetic mitral valve, tricuspid repair 2017, [facility]
History of cardiomyopathy EF 25%, improved to 50% per records
History of coronary disease with multiple stents, LAD stent 2016
Hypertension/hyperlipidemia
Atrial fibrillation with ablation at [place] 2014
On anticoagulation, Tikosyn in the past
Tacky/bradycardia syndrome, PPM
[id number] history of smoking, quit 2007
Sleep apnea on CPAP
History of COVID June 2024
History of COPD, details unclear
Not on home inhalers
Distant history of TIA, left carotid endarterectomy 2017
Plan/recommendations
At this time, patient appears to be comfortable
Satting 94% on 1L NC, could be weaned to off
Hemoptysis seems to have resolved
Salient features include weight gain, noncompliance with Lasix, dietary indiscretion
Subjectively improved since admission
Eliquis currently held
Chest x-ray 03/12 with significant improvement, per my review
Moving forward
Reviewed radiographic findings with patient. 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
Mild crackles on exam noted otherwise nontoxic-appearing
No further hemoptysis according the patient since 03/11
Remains off antibiotics, discontinued 03/12
Chest x-ray 03/12 showing small bilateral effusions --improving
Okay to restart Eliquis. Dosing will be deferred to cardiology
Planning for cath today
Discussed with patient potential need for CT imaging but for now would hold off
Would prefer this is done as an outpatient. Patient has imaging administrator/sleep and yearly
Discussed with patient potential for underlying malignancy given hemoptysis. Will require follow-up
Continue CPAP at night, presently pressure only at 5
Patient has CPAP at home, followed by sleep physician Dr. Guillen in [place]
Patient is requesting follow-up from pulmonary standpoint at [place]
We will accommodate as necessary
Patient may require home oxygen
Reviewed at length with patient. We will follow
DNR status noted
Total time spent on this consultation/encounter __45__ minutes which includes review of history, physical exam, medications, laboratory data, personal review of imaging, extensive review of outpatient records, discussion with care team and
respiratory therapy.
Subjective Data
-
Date of Service:
Date of Service: March 14, 2025
Chief Complaint: Pulmonary Follow Up
Subjective:
No new complaints, sitting in chair
At times aggressive to staff
Objective Data
Data Reviewed
Vital Signs / I&O / Oxygen:
Vital Signs
Temp Pulse Resp BP Pulse Ox
98.6 F 75 18 138/59 93
03/14/25 08:04 03/14/25 08:04 03/14/25 08:04 03/14/25 08:04 03/14/25 08:04
Intake and Output
03/13/25 03/14/25 03/15/25
06:59 06:59 06:59
Intake Total 1540 / 1540 670 / 670
Output Total 1600 / 1600 900 / 900
Balance -60 / -60 -230 / -230
SaO2 93
Nasal Cannula flow liters per 1
minute
Physical Exam
General: Comfortable and Other (Large neck)
HEENT: Normocephalic and Anicteric
Cardiovascular: S1-S2, Irregular Rhythm, Murmur (2/6 systolic murmur) and Peripheral Edema (tr)
Respiratory: Clear, Wheeze (n), Rhonchi (n) and Non-Labored Respirations
GI: Soft, Non Distended (Obese) and Non Tender
Neurology: Awake, Alert, Oriented and No Motor Deficits (Able to sit up without assistance)
Skin: Cyanosis (n), Jaundice (n) and Rash (n)
Labs/Micro/Reports
Lab Data
03/13/25 07:46
03/14/25 07:03
Microbiology
03/10/25 08:02 Blood/Venous Blood Culture - Preliminary
No Growth in 4 days- Final report to follow
03/10/25 07:47 Blood/Venous Blood Culture - Preliminary
No Growth in 4 days- Final report to follow
03/12/25 08:45 Sputum Respiratory Culture - Final
03/12/25 08:45 Sputum Gram Stain - Final
03/10/25 12:31 Urine Legionella Urinary Antigen - Final
Negative for Legionella pneumophila Serogroup 1 antigen.
A negative result does not rule out the possiblity of
Legionella infection due to other serogroups or species of
Legionella. Clinical correlation is recommended.
03/10/25 12:31 Urine Streptococcus pneumoniae Antigen (M - Final
Negative for Streptococcus pneumoniae antigen.
A negative result does not exclude infection with
Streptococcus pneumoniae. Clinical correlation is
recommended.
[2025-03-14] MEDS: DETROL 2 MG PO ×2 (09:50→21:23)
[2025-03-14] MEDS: COREG 3.125 MG PO ×2 (09:50→21:22)
[2025-03-14] MEDS: ALDACTONE 12.5 MG PO (09:51)
[2025-03-14] MEDS: LEXAPRO 20 MG PO (09:51)
[2025-03-14] MEDS: MUCINEX 600 MG PO ×2 (09:51→21:23)
[2025-03-14] MEDS: FARXIGA 10 MG PO (09:52)
[2025-03-14] MEDS: ASPIR LOW (ENTERIC COATED) 81 MG PO (09:52)
[2025-03-14] MEDS: LASIX 40 MG IV (09:52)
[2025-03-14] MEDS: ENTRESTO 49 MG/51 MG 1 TAB PO ×2 (09:52→21:23)
[2025-03-14] MEDS: THERAGRAN 1 TABLET PO (09:53)
[2025-03-14] MEDS: PEPCID 40 MG PO (09:53)
[2025-03-14] MEDS: BUSPAR 15 MG PO ×3 (09:53→22:39)
--- NOTE | 2025-03-14 11:30 | CM ---
Addendum entered by Griselda Torres 03/14/25 12:25:
Called spouse regarding pt's agitated behavior for the past 2 nights. Requested a call back.
Original Note:
Planned cardiac cath for today.Chart reviewed. Pt remains on O2 via N/C. Will follow for D/C needs post CC. Pt at nurses station due to disruptive behavior with roommate.
Plan: follow for discharge needs post CC.
--- NOTE | 2025-03-14 14:45 | W.PN.HOSP.TC ---
Today's Communication/Plan
-
Oxygen requirements improved significantly
Continue diuresis
Cardiac cath today
Continue to monitor on telemetry
Assessment / Plan
Assessment / Plan
Physical Exam
General: Well Developed, Well Nourished, No Apparent Distress and Comfortable
HEENT: NormoCephalic, Anicteric and Moist mucous membranes
Respiratory: Decreased Breath Sounds
Cardiac: S1/S2 and Regular Rhythm
GI: Soft, Non Tender and Non Distended
Genito-urinary: Deferred by me
Musculoskeletal: No Cyanosis. Edema, Left Lower Extremity and Edema, Right Lower Extremity
Skin: Warm and Dry
Neuro: AO x 3
Hematologic/Lymphatic: No Lymphadenopathy
Psych: Calm
Assessment/Plan
84-year-old male with history of heart failure here complaining of increased dyspnea on exertion over the 5 days prior to presentation. Symptoms started 03/05/25 and subsequently developed cough with hemoptysis on on 03/07/25.
He admitted to 12 pound weight gain over the past week and a half prior to arrival. He believes it is dietary indiscretion related as he was eating a lot of salty foods, [place]
He is prescribed as needed Lasix but decided not to take it for unclear reasons.
Denies orthopnea.
Denies fevers or chills. Not on home oxygen. Denies sick contacts.
Acute hypoxic respiratory failure -likely multifactorial etiology including acute pulmonary edema, pleural effusions, bronchitis versus pneumonia. Required Ventimask and nonrebreather in the emergency room. Transition to mid flow and wean down as
able. Still needs oxygen with ambulation. Not on home oxygen. Now down to 1 L.
Acute on chronic heart failure with preserved EF -presentation with pulmonary edema, pleural effusions, BNP elevation, weight gain. Continue IV Lasix. Check daily weights. Added Coreg with CM and reduce Entresto to allow for more room for bp.
Concern for possible Sepsis -unclear if due to bronchitis versus pneumonia versus other etiology. Presentation with low-grade fever and leukocytosis. Chest x-ray noted.
Blood cultures with no growth to date. Urinary antigens negative.
Lactic acidosis, 2.1 on admission, repeat 1.2.
Antibiotics were previously given for pneumonia, however per pulmonary, antibiotics no longer needed and have been stopped.
History of Cath in [facility] Jul 2017 with PCI to LAD
Troponin elevation - Denies chest pain. Doubt ACS. EKG shows bifascicular block, age undetermined anteroseptal infarct. Possibly acute nonischemic myocardial injury due to acute illness.
Hemoptysis -suspect related to cough and underlying chronic anticoagulation with Eliquis. Appreciate pulmonary.
Paroxysmal atrial fibrillation - per cardiology, hold Eliquis in anticipation of cardiac cath today. Continue Aspirin while off Eliquis
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
COPD without exacerbation -no wheezing on exam. Monitor for now.
Chronic macrocytic anemia -hemoglobin at baseline. Monitor for now.
Essential hypertension -stable.
Hyperlipidemia -rosuvastatin.
Obesity due to excess calories
DNR
DVT Prophylaxis: Lovenox (since Eliquis is being held)
Anticipated Discharge: 24 - 48 hours
Subjective/Interval History
-
Date of Service: March 14, 2025
Patient was seen and examined. He denied chest pain, shortness of breath or any other symptoms or complaints.
Objective Data
-
Labs:
Laboratory Results
03/14/25
07:03
Sodium 139
Potassium 3.8
Chloride 103
Carbon Dioxide 30
BUN 26 H
Creatinine 1.0
Glucose 91
Calcium 9.2
Vital Signs:
Vital Signs
Temp Pulse Resp BP Pulse Ox
98.6 F 64 18 122/56 94
03/14/25 08:04 03/14/25 11:48 03/14/25 11:48 03/14/25 11:48 03/14/25 11:48
I&O
03/13/25 03/14/25 03/15/25
06:59 06:59 06:59
Intake Total 1540 / 1540 670 / 670
Output Total 1600 / 1600 900 / 900
Balance -60 / -60 -230 / -230
[2025-03-14] MEDS: LOVENOX 40 MG SC (18:40)
[2025-03-14] MEDS: CRESTOR 40 MG PO (21:23)
[2025-03-15 01:00] VITALS: BP 110/66
[2025-03-15 03:00] VITALS: BP 119/58
[2025-03-15 04:46] VITALS: BMI 27.7
--- NOTE | 2025-03-15 04:59 | PTCARENOTE ---
Pt was asstied by tech. Pt was acting confused. NC had been removed. Spo2 was found to be 82%. NC was reapplied and increased to 4L. 90% spo2 was achived. NC 2was moved to 5L which resulted in 95% spo2. Bed was found to be lightly damp. sheets and
gown were changed. Pt returned to bed with cpap in palce, bed alarm armed and audible, tele replaced, called placed in hand, belongings in reach and bed in lowest position.
[2025-03-15 07:00] VITALS: BP 136/73
--- NOTE | 2025-03-15 07:13 | W.PN.HOSP.TC ---
Today's Communication/Plan
-
Discharge today
Assessment / Plan
Assessment / Plan
Physical Exam
General: Well Developed, Well Nourished, No Apparent Distress and Comfortable
HEENT: Normocephalic, Moist mucous membranes
Respiratory: Clear to Auscultation Bilaterally
Cardiac: S1/S2 and Irregular Rhythm
GI: Soft, Non Tender and Non Distended
Musculoskeletal: No Cyanosis. Edema, Left Lower Extremity and Edema, Right Lower Extremity.
Skin: Warm and Dry
Neuro: AO x 3
Psych: Calm
Assessment/Plan
84-year-old male with history of heart failure here complaining of increased dyspnea on exertion over the 5 days prior to presentation. Symptoms started 03/05/25 and subsequently developed cough with hemoptysis on on 03/07/25.
He admitted to 12 pound weight gain over the past week and a half prior to arrival. He believes it is dietary indiscretion related as he was eating a lot of salty foods, [place] from [place].
He is prescribed as needed Lasix but decided not to take it for unclear reasons.
Denies orthopnea.
Denies fevers or chills. Not on home oxygen. Denies sick contacts.
Acute hypoxic respiratory failure -likely multifactorial etiology including acute pulmonary edema, pleural effusions, bronchitis versus pneumonia. Required Ventimask and nonrebreather in the emergency room. Transition to mid flow and wean down as
able. Still needs oxygen with ambulation. Not on home oxygen. Home oxygen test confirms that patient does not need home oxygen on discharge.
Chronic bilateral pleural parenchymal disease
Small Bilateral Pleural Effusions
-Follow-up with [facility] Pulmonary
Acute on chronic heart failure with reduced ejection fraction
History of coronary disease with multiple stents, LAD stent 2016
Ischemic cardiomyopathy, EF 30 to 35%
-Cardiac cath showed LVEDP 18 mmHg, no obstructive coronary disease
-presentation with pulmonary edema, pleural effusions, BNP elevation, weight gain. IV Lasix inpatient -- on discharge, Lasix 40 mg PO daily. Check daily weights. Added Coreg with CM and reduce Entresto to allow for more room for bp. BMP in 1 week.
-Continue Farxiga 10 mg daily, Spironolactone 12.5 mg daily, Coreg 3.125 mg twice daily, and Entresto 49/51 mg twice daily.
Concern for possible Sepsis -unclear if due to bronchitis versus pneumonia versus other etiology. Presentation with low-grade fever and leukocytosis. Chest x-ray noted.
Blood cultures with no growth to date. Urinary antigens negative.
Lactic acidosis, 2.1 on admission, repeat 1.2.
Antibiotics were previously given for pneumonia, however per pulmonary, antibiotics no longer needed and have been stopped.
History of Cath in [facility] Jul 2017 with PCI to LAD
Coronary Artery Disease -- history of mid LAD stent 07/2017
Nonischemic Myocardial Injury
- Denies chest pain. Doubt ACS. EKG shows bifascicular block, age undetermined anteroseptal infarct. Possibly acute nonischemic myocardial injury due to acute illness.
Hemoptysis
- suspect related to cough and underlying chronic anticoagulation with Eliquis. Appreciate pulmonary.
Paroxysmal atrial fibrillation
Atrial fibrillation with ablation at [place] 2014
On anticoagulation, Tikosyn in the past
Tachy/bradycardia syndrome, PPM
- per cardiology, continue Aspirin and Eliquis as per cardiology.
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
COPD without exacerbation
-no wheezing on exam. Monitor for now.
Chronic macrocytic anemia
-hemoglobin at baseline. Monitor for now.
Essential hypertension
-stable
Hyperlipidemia
-rosuvastatin
LUCIUS
- continue home CPAP at phone and follow-up with sleep physician Dr. Guillen in [place]
Obesity due to excess calories
History of COVID June 2024
Distant history of TIA, left carotid endarterectomy 2017
DNR
DVT Prophylaxis: Eliquis
More than 30 minutes spent in discharge including
Final examination of the patient
Summarizing hospital stay
Instructions for continuing care to all relevant caregivers
Preparation of discharge records, prescriptions, and referral forms
Total time spent (in minutes): 43
Anticipated Discharge: Today
Subjective/Interval History
-
Date of Service: March 15, 2025
Patient was seen and examined. He denied any chest pain, shortness of breath or any other complaints.
Objective Data
-
Labs:
Laboratory Results
03/15/25
06:00
WBC Pending
Hgb Pending
Hct Pending
Plt Count Pending
Sodium Pending
Potassium Pending
Chloride Pending
Carbon Dioxide Pending
BUN Pending
Creatinine Pending
Glucose Pending
Calcium Pending
Vital Signs:
Vital Signs
Temp Pulse Resp BP Pulse Ox
98.4 F 61 20 119/58 95
03/15/25 03:00 03/15/25 03:00 03/15/25 03:00 03/15/25 03:00 03/15/25 04:45
I&O
03/14/25 03/15/25 03/16/25
06:59 06:59 06:59
Intake Total 670 / 670 240 / 240
Output Total 900 / 900 350 / 350
Balance -230 / -230 -110 / -110
[2025-03-15] MEDS: ENTRESTO 49 MG/51 MG 1 TAB PO (08:22)
[2025-03-15] MEDS: DETROL 2 MG PO (08:22)
[2025-03-15] MEDS: FARXIGA 10 MG PO (08:23)
[2025-03-15] MEDS: PEPCID 40 MG PO (08:23)
[2025-03-15] MEDS: MUCINEX 600 MG PO (08:23)
[2025-03-15] MEDS: COREG 3.125 MG PO (08:24)
[2025-03-15] MEDS: ASPIR LOW (ENTERIC COATED) 81 MG PO (08:24)
[2025-03-15] MEDS: THERAGRAN 1 TABLET PO (08:24)
[2025-03-15] MEDS: LEXAPRO 20 MG PO (08:25)
[2025-03-15] MEDS: BUSPAR 15 MG PO ×2 (08:25→16:06)
[2025-03-15] MEDS: LASIX 40 MG IV (08:25)
[2025-03-15] MEDS: ALDACTONE 12.5 MG PO (08:27)
[2025-03-15 08:43] LABS: Hematocrit 32.7 % (39.0-52.0); Hemoglobin 10.7 g/dL (13.0-18.0); Mean Corp Hgb Conc. 32.7 g/dL (33.0-37.0); Mean Corpuscular Volume 100.9 fL (80.0-94.0); Platelet Count 239 10^3/uL (130-400); Red Cell Dist. Width 14.6 % (11.5-14.5)
[2025-03-15 09:12] LABS: Blood Urea Nitrogen 25 mg/dl (9-20); Calcium 9.5 mg/dl (8.4-10.2); Carbon Dioxide 32 mmol/L (22-30); Chloride 103 mmol/L (98-107); Estimated Creatinine Clearance 61 ml/min; Glucose 93 mg/dl (70-99); Potassium 4.1 mmol/L (3.5-5.1); Sodium 139 mmol/L (135-145); eGFR > 60.00
--- NOTE | 2025-03-15 09:20 | CM ---
Addendum entered by Griselda Torres 03/15/25 11:24:
[facility] [phone] - PT referral made
Addendum entered by Griselda Torres 03/15/25 10:54:
Pt had [facility] after last admissions. Choices for HH provided, pt want to use [facility]. Will place referral.
Addendum entered by Griselda Torres 03/15/25 10:41:
Met with pt bedside. IMM given and placed on chart. Pt remains on O2 via n/c. Discussed PT recommendations. Pt wants HH. CM spoke with this morning about pt's intermittent agitation episodes. states that this occurs at home at time and
takes Buspirone. Pt is on Buspirone at this time. will be in to visit at 6:30PM today.
Plan: Home with HH.
Original Note:
Received voice mail from , Liz [phone]. States that patient takes Buspirone at home for agitation and usually sleeps through the night. will be in to see pt at 6:30 tonight.
PT rec SNF vs HH. Will follow for d/c needs.
Plan: Home with HH vs SNF. TBD
--- NOTE | 2025-03-15 09:21 | W.PN.PUL3 ---
Today's Communication / Plan
-
Doing well, cath results negative
Diuresis per cards for outpatient regiment
Off O2--stable on RA, home O2 assessment w/o hypoxemia
D/c planning per team, ok from our perspective
We will sign off at this time, pls call with questions
Assessment
-
84-year-old male with complex medical history including heart failure with cardiomyopathy in the past, questionable history of COPD, presents with increased shortness of breath, weight gain, lower extreme edema found to be in heart failure with
elevated troponin. Chest x-ray with bilateral pleural parenchymal disease likely consistent with heart failure. Patient treated with IV Lasix and also given antibiotics at time of admission. We are asked to comment on pulmonary process given
hemoptysis and anticoagulation
Acute hemoptysis x 1 week
Difficult to quantify per patient
Acute hypoxic respiratory insufficiency
82% on room air at admission
Elevated troponin/NSTEMI
Bilateral interstitial changes
Acute HFrEF exacerbation
Weight gain, shortness of breath, increased edema
Dietary discretion, noncompliance with Lasix
Anemia
Elevated lactate, improved
Bifascicular block per EKG
History of pleural effusion with thoracentesis 2014, [facility]
details unclear
Conditions present prior to admission
History of bioprosthetic mitral valve, tricuspid repair 2017, [place]
History of cardiomyopathy EF 25%, improved to 50% per records
History of coronary disease with multiple stents, LAD stent 2016
Hypertension/hyperlipidemia
Atrial fibrillation with ablation at [place] 2014
On anticoagulation, Tikosyn in the past
Tacky/bradycardia syndrome, PPM
[id number] history of smoking, quit 2007
Sleep apnea on CPAP
History of COVID June 2024
History of COPD, details unclear
Not on home inhalers
Distant history of TIA, left carotid endarterectomy 2017
Plan/recommendations
At this time, patient appears to be comfortable
Satting >90%, stable on RA, home O2 assessment without need
Hemoptysis seems to have resolved
Salient features include weight gain, noncompliance with Lasix, dietary indiscretion
Subjectively improved since admission
Eliquis currently held
Chest x-ray 03/12 with significant improvement, per my review
Moving forward
Reviewed radiographic findings with patient. 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
Mild crackles on exam noted otherwise nontoxic-appearing
No further hemoptysis according the patient since 03/11
Remains off antibiotics, discontinued 03/12
Chest x-ray 03/12 showing small bilateral effusions --improving
Okay to restart Eliquis. Dosing will be deferred to cardiology
ECHO reviewed, EF 30%
[facility] reports no CAD
Discussed with patient potential need for CT imaging but for now would hold off
Would prefer this is done as an outpatient. 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
Discussed with patient potential for underlying malignancy given hemoptysis. Will require follow-up
Continue CPAP at night, presently pressure only at 5
Patient has CPAP at home, followed by sleep physician Dr. Guillen in [place]
Patient is requesting follow-up from pulmonary standpoint at [place]
We will accommodate as necessary
Patient may require home oxygen
Reviewed at length with patient. We will follow
DNR status noted
Total time spent on this consultation/encounter __45__ minutes which includes review of history, physical exam, medications, laboratory data, personal review of imaging, extensive review of outpatient records, discussion with care team and
respiratory therapy.
Subjective Data
-
Date of Service:
Date of Service: March 15, 2025
Chief Complaint: Pulmonary Follow Up
Subjective:
No acute events ON, stable on RA
No new complaints
Objective Data
Data Reviewed
Vital Signs / I&O / Oxygen:
Vital Signs
Temp Pulse Resp BP Pulse Ox
98.0 F 61 20 136/73 100
03/15/25 07:00 03/15/25 07:00 03/15/25 07:00 03/15/25 07:00 03/15/25 07:00
Intake and Output
03/14/25 03/15/25 03/16/25
06:59 06:59 06:59
Intake Total 670 / 670 240 / 240
Output Total 900 / 900 350 / 350
Balance -230 / -230 -110 / -110
SaO2 100
Nasal Cannula flow liters per 4
minute
Physical Exam
General: Comfortable and Other (Large neck)
HEENT: Normocephalic and Anicteric
Cardiovascular: S1-S2, Irregular Rhythm, Murmur (2/6 systolic murmur) and Peripheral Edema (tr)
Respiratory: Clear, Wheeze (n), Rhonchi (n) and Non-Labored Respirations
GI: Soft, Non Distended (Obese) and Non Tender
Neurology: Awake, Alert, Oriented and No Motor Deficits (Able to sit up without assistance)
Skin: Cyanosis (n), Jaundice (n) and Rash (n)
Labs/Micro/Reports
Lab Data
03/15/25 08:04
03/15/25 08:04
Microbiology
03/10/25 08:02 Blood/Venous Blood Culture - Final
No Growth - Final Report
03/10/25 07:47 Blood/Venous Blood Culture - Final
No Growth - Final Report
03/12/25 08:45 Sputum Respiratory Culture - Final
03/12/25 08:45 Sputum Gram Stain - Final
[2025-03-15 11:00] VITALS: BP 110/54
--- NOTE | 2025-03-15 11:24 | W.PN.CARDCBS ---
Addendum entered and electronically signed by Avis Reese DO 03/15/25 17:40:
I saw and examined the patient.
The Pitch Flaker's note was reviewed and I agree with the note.
Comment: Patient was seen and examined. Offers no complaints and anxious to go home.
General: No acute distress, AAOX3
Heart: Regular, positive S1/S2, 2/6 SM
Lungs: CTA b/l, negative wheezes/rales/rhonchi
Abd: Positive BS, NT/ND
Ext: No edema. radial site intact
Neuro: nonfocal
Plan:
Admitted with acute heart failure exacerbation After dietary indiscretion.
-Diuresed with IV lasix 40mg daily. Weight down to 198 lbs on 03/15, down at least 17 lbs this admission.
-Creat stable at 1.0. Volume status appears improved
-transition to PO lasix 40mg daily.
-Check BMP in 1 week.
-Echo 03/11 noted EF down to 26% as noted above. Troponin peaked at 0.306. [facility] 03/11 with nonobstructive CAD. Continuing medical management for nonischemic CM.
-Continue Farxiga 10 mg daily, spironolactone 12.5 mg daily, Coreg 3.125 mg twice daily, and Entresto 49/51 mg twice daily.
-Heart rate stable on telemetry. Continue aspirin and Eliquis for AC.
-BP stable.
-Will arrange follow up with [facility] as he wishes to transition care here.
-Discharge planning per primary.
-Will sign off, recall if needed
Original Note:
Today's Communication / Plan
-
Transition to PO lasix
BMP in 1 week
Continue Farxiga (Jardiance at discharge), Entresto, Coreg, Spironolactone
Continue Eliquis, aspirin
Will arrange cardiology follow up locally.
Impression / Plan
-
PCP: Dr. Arango
Cardiology: Previously seen by Dr. Pavon, wishes to transition to [facility]
EP: Dr. Ponce ([facility])
Impression:
Presented w/ HOROWITZ, decline in activity level
Acute on chronic HFrEF
Nonischemic myocardial injury
Ischemic cardiomyopathy, EF 30 to 35%
CAD
h/o mid LAD stent 07/2017
[employer] permanent pacemaker 2018
Mitral valve replacement bioprosthetic (#29 Magna Ease) and tricuspid valve repair (#30 partial ring) @ [facility] 2017
Paroxysmal atrial fibrillation
h/o PVI distant past
Chronic Eliquis OAC
Hypertension
Hyperlipidemia
h/o TIA
Carotid disease s/p left CEA 03/2018
COPD
Sleep apnea on CPAP
Renal insufficiency
Chronic macrocytic anemia
Event monitor November 2021: Predominantly sinus rhythm with possible atrial and ventricular pacing. Super ventricular tachycardia max 5 beats at 146 bpm
[facility] 07/2017 ([facility]): Moderate to severe increased RVSP and PAP. LVEDP significantly elevated. Total occlusion of LAD at S1 status post DOUG. Large D1 occluded following PTCA/DOUG. Left circumflex and OM with LI. RCA without significant stenosis.
Pharmacologic stress test 12/2023 ([place]): EF 44% with fixed, large severely reduced anteroapical perfusion defect consistent with infarction and no residual ischemia.
[facility] 03/14/2025: LM: Minimal luminal irregularities. LAD: Prior mid LAD stent is widely patent, distal LAD has eccentric 30 to 40% stenosis, D2 has ostial 70 to 75% stenosis. LCx: Mild diffuse atherosclerotic plaque. RCA: Mid RCA has a tubular 40
to 50% stenosis. LVEDP of 18 mmHg.
Echo 08/26/2023 ([place]): EF 50% prosthetic mitral valve with peak gradient 5, mean gradient 2. Aortic valve sclerosis without significant stenosis. Tricuspid valve annuloplasty ring with trace tricuspid regurgitation.
Echo 03/11/2025 with [facility]: EF 26% by Drew biplane method and 30 to 35% by visual estimation. Bioprosthetic mitral valve with no mitral regurgitation. Mild aortic stenosis with peak/mean gradient 18/9 mmHg. JUDI 2.09 cm�. Tricuspid valve
with annuloplasty ring without significant regurgitation and normal function.
Plan:
-Presented with HOROWITZ, decline in activity level after having dietary changes due to family visiting from out of the country. Admitted with acute heart failure exacerbation.
-Diuresing with IV lasix 40mg daily. Weight down to 198 lbs on 03/15, down at least 17 lbs this admission.
-Creat stable at 1.0. Volume status appears improved, would plan to transition to PO lasix 40mg daily.
-Check BMP in 1 week.
-Echo 03/11 noted EF down to 26% as noted above. Troponin peaked at 0.306. [facility] 03/11 with nonobstructive CAD. Continuing medical management for nonischemic CM.
-Continue Farxiga 10 mg daily, spironolactone 12.5 mg daily, Coreg 3.125 mg twice daily, and Entresto 49/51 mg twice daily.
-Heart rate stable on telemetry. Continue aspirin and Eliquis for AC.
-BP stable.
-Will arrange follow up with [facility] as he wishes to transition care here.
HPI: Patient is known to [facility]. He presented with shortness of breath and dyspnea on exertion, decline in activity level over the past 5 days. His family was visiting from out of the country and he was eating
salty foods. He has gained by report 12 pounds of fluid weight over the past week or week and a half secondary to dietary indiscretion. He was not taking his as needed diuretic. He has known heart failure with preserved (improved) ejection
fraction (previously reduced left ventricular ejection fraction in 2017 25 to 30%). proBNP 3610. On presentation to the ER he was noted to have acute pulmonary edema and pleural effusions. Hypoxemic respiratory failure. In addition bronchitis
versus pneumonia. Lactic acidosis initially noted. Last week he also developed cough with hemoptysis last week by report. He has paroxysmal atrial fibrillation 2012 ([facility]) PVI in the distant past. Recurrence of A-fib over time which has been
paroxysmal. Currently in sinus.. Dual-chamber [employer] pacemaker for tachybradycardia syndrome and sinus node dysfunction 03/21/2019. He has history of coronary artery disease (history of stents) and bioprosthetic mitral valve
replacement/tricuspid valve repair in 2018. Initial troponin was elevated at 0.097. Repeat troponin 0.306. Third troponin pending. According to prior cardiac rehab records he has history of mid LAD stent 07/2017 complicated by occlusion of
diagonal vessel ([facility]). This was followed by admission to [facility] 2017 with heart failure and left ventricular ejection fraction 25 to 30%. 09/2017 GAVIN 45 to 50% then 50 to 55%. Echocardiogram at [facility] 12/20/2017 ejection
fraction is 50% with apical hypokinesis. Mild LVH. Flattened septum in diastole consistent with RV volume overload. Moderate to severe MR. Moderate TR. Right ventricle is hypokinetic. Estimated PA pressure 92 mmHg. He also has hypertension,
hyperlipidemia. He has history of COPD and sleep apnea. He has prior acute kidney injury with abnormal creatinine. Current creatinine 1.2. He has history of TIA carotid disease with left carotid endarterectomy 03/09/2018 ([facility]). He also has chronic
macrocytic anemia.
Progress Note - Journal Entry Audit Clerk
Subjective
Date of Service: March 15, 2025
No chest pain. Feeling improved
Objective
Labs:
03/15/25 08:04
03/15/25 08:04
Labs
Hgb 10.7 g/dL (13.0-18.0) L 03/15/25 08:04
Hct 32.7 % (39.0-52.0) L 03/15/25 08:04
Plt Count 239 10^3/uL (130-400) D 03/15/25 08:04
Sodium 139 mmol/L (135-145) 03/15/25 08:04
Potassium 4.1 mmol/L (3.5-5.1) 03/15/25 08:04
BUN 25 mg/dl (9-20) H 03/15/25 08:04
Creatinine 1.0 mg/dL (0.7-1.3) 03/15/25 08:04
Glucose 93 mg/dl (70-99) 03/15/25 08:04
Vital Signs and I&O:
Vital Signs
Temp Pulse Resp BP Pulse Ox
98.0 F 61 20 136/73 100
03/15/25 07:00 03/15/25 07:00 03/15/25 07:00 03/15/25 07:00 03/15/25 07:00
Vital Signs
Temp Pulse Resp BP Pulse Ox
98.0 F 61 20 136/73 100
03/15/25 07:00 03/15/25 07:00 03/15/25 07:00 03/15/25 07:00 03/15/25 07:00
Intake & Output
03/13/25 03/14/25 03/15/25 03/16/25
06:59 06:59 06:59 06:59
Intake Total 1540 / 1540 670 / 670 240 / 240
Output Total 1600 / 1600 900 / 900 350 / 350
Balance -60 / -60 -230 / -230 -110 / -110
Physical Exam
Physical Exam
GEN: NAD
LUNGS: No audible wheeze
CV: Paced on tele
[2025-03-15 15:00] VITALS: BP 116/65
--- NOTE | 2025-03-15 15:30 | W.DCSUMMARY ---
Discharge Summary
Discharge Data
Date of Admission: 03/10/25
Date of Discharge: 03/15/25
Total time spent discharging patient (in min): 43
-
Pending Results: No
Hospital Course
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
permanent pacemaker 2019, COPD, essential hypertension, LUCIUS and Osteoarthritis who presented with increased shortness of breath on exertion for the previous 5 days leading up to presentation. Patient mentioned that he had 12-pound weight gain over
the week and a half leading up to his presentation to the hospital - he believed that it was dietary indiscretion related, as he was eating a lot of salty foods while [place]. It was noted that patient is prescribed as
needed Lasix but did not take it for unclear reasons. Patient required Ventimask and nonrebreather oxygen in the emergency room, and was treated for acute hypoxic respiratory failure. Patient was treated for acute on chronic heart failure with
intravenous Lasix. He was given antibiotics for suspected infection. Patient had some hemoptysis for which pulmonary was consulted and his Eliquis was held briefly. Patient's Eliquis was later held for cardiac cath. Patient was placed on Carvedilol
for his cardiomyopathy, Aldactone was also added, and Entresto was reduced to allow room for blood pressure. Patient's hemoptysis later resolved and he would need close follow-up with pulmonary outpatient. On 03/14/25, patient had cardiac cath, and
as per surveillance observer's report:
'CONCLUSIONS
1. No obstructive coronary artery disease.
2. LVEDP of 18 mmHg'
On the day of discharge, patient had a home oxygen assessment test and it was determined that patient does not qualify for home oxygen at the time of discharge.
Discharge Plan
-
Patient Disposition: Home with Home Care
Discharge Diagnosis/Procedures: Acute hypoxic respiratory failure -likely multifactorial etiology including acute pulmonary edema, pleural effusions, bronchitis
Cardiac Cath took place on 03/14/25
Chronic bilateral pleural parenchymal disease
Small Bilateral Pleural Effusions
Acute on chronic heart failure with reduced ejection fraction
History of coronary disease with multiple stents, LAD stent 2016
Ischemic cardiomyopathy, EF 30 to 35%
History of Cath in Jul 2017 with PCI to LAD
Coronary Artery Disease -- history of mid LAD stent 07/2017
Non-ischemic Myocardial Injury
Hemoptysis
Paroxysmal atrial fibrillation
Atrial fibrillation with ablation at [place] 2014
On anticoagulation, Tikosyn in the past
Tachy/bradycardia syndrome, PPM
Bioprosthetic MVR -2018, [facility].
COPD without exacerbation
Chronic macrocytic anemia
Essential hypertension
Hyperlipidemia
LUCIUS
Obesity due to excess calories
History of COVID June 2024
Distant history of TIA, left carotid endarterectomy 2017
Condition: Good
Diet: Low Fat, Low Cholesterol, Low Sodium, 2 Gram Sodium and Restrict fluids to 64 oz
Activity: As tolerated
Driving Restrictions: No driving for 24 hours
Blood Work: CBC, CMP and Magnesium within 4 to 7 days with your outpatient provider
Other Services: VN
Specialty Instructions: Weigh Daily- Call MD for wt gain/loss 3 lbs overnight/5 lbs in 1 week
Activity Restrictions/Additional Instructions:
Continue your CPAP at home for sleep apnea
Monitor your oxygen everyday at home both at rest and with ambulation with a pulse oximeter and return to the ER if your oxygen levels drop to less than 90% saturation
Stand Alone Forms: DC Instructions- Cath/EP Lab
Referrals:
Hetal Powers MD [Active, Pulmonary Medicine]
Referral Note: CXR in 6 weeks
Pulm visit after CXR
Call for appt upon dc
Maris Riley PA-C [Specified Professional Personl, Cardiology] - 04/09/25 2:40 pm
Referral Note: You have a follow up visit with Dr. Marquez's PA, Maris, at the [place] office. Please call with questions.
Dread Arango MD [Family Provider]
Additional Discharge Medication Instructions: Aspirin, Carvedilol, and Spironolactone new medications.
Your Eliquis (Apixaban) has increased to 5 mg BID (from 2.5 mg BID).
Your Furosemide (Lasix) has been changed from 20 mg daily as needed, to 40 mg daily to be taken on a scheduled basis.
Guaifenesin is a new medication to help clear up cough and mucus.
You Sacubitril-Valsartan (Entresto) has been reduced from 97-103 mg BID to 49-51 mg BID to prevent your blood pressure from dropping too much, especially given that Carvedilol has been started for you.
Prescriptions:
New
spironolactone 25 mg Tablet
12.5 mg PO DAILY Qty: 30 1RF
Eliquis 5 mg Tablet
5 mg PO BID Qty: 60 1RF
aspirin 81 mg Tablet,Delayed Release (Dr/Ec)
81 mg PO DAILY Qty: 30 1RF
carvedilol 3.125 mg Tablet
3.125 mg PO BID Qty: 60 1RF
sacubitril-valsartan [Entresto] 49-51 mg Tablet
1 tab PO BID Qty: 60 1RF
furosemide [Lasix] 40 mg tablet
40 mg PO DAILY Qty: 30 1RF
guaifenesin 600 mg Tablet Extended Release 12hr
600 mg PO Q12 Qty: 14 0RF
Continued
famotidine [Pepcid] 40 mg Tablet
40 mg PO DAILY
buspirone 15 mg Tablet
15 mg PO TID
Jardiance 10 mg Tablet
10 mg PO DAILY
therapeutic multivitamin Tablet
1 tab PO DAILY Qty: 0
tolterodine 2 mg Tablet
2 mg PO BID
azelastine 137 mcg (0.1 %) Aerosol,[place]
1 spray INTRANASAL BID
escitalopram oxalate [Lexapro] 20 mg Tablet
20 mg PO DAILY
rosuvastatin 40 mg Tablet
40 mg PO HS
albuterol sulfate 90 mcg/actuation Hfa Aerosol Inhaler
2 puff INHALATION R Q6HPRN PRN (Reason: sob/wheezing)
lorazepam 0.5 mg Tablet
0.5 mg PO DAILYPRN PRN (Reason: anxiety) Qty: 3 0RF
azelastine 0.05 % Drops
1 drp OPHTHALMIC (EYE) BID
Rx Instructions:
OU
Discontinued
sacubitril-valsartan [Entresto] 97-103 mg Tablet
1 tab PO BID
furosemide 20 mg Tablet
20 mg PO DAILY PRN (Reason: swelling)
apixaban 2.5 mg Tablet
2.5 mg PO BID
Discharge Orders:
Discharge Patient (As Directed); Ordered 03/15/25
Ordered By: Daniel Gaviria
Discharge Date and Time
Discharge Date/Time: 03/15/25 18:31
Print Language: GREENLANDIC
== END 2025-03-15 18:31 | disposition home health service (06) | DRG 871 ==
LOC: 4 WEST ACU 08:09
PROVIDERS: Internal Medicine Interventional Cardiology; Nuclear Medicine Nuclear Cardiology; Nurse Practitioner Adult Health; Physician Assistant Medical; ADMITTING PHYSICIAN Hospitalist; ATTENDING PHYSICIAN Hospitalist; CONSULT PHYSICIAN Internal Medicine Cardiovascular Disease; CONSULT PHYSICIAN Internal Medicine Critical Care Medicine; EMERGENCY PHYSICIAN Emergency Medicine; FAMILY PHYSICIAN Internal Medicine
PROC: 5A09357 Assistance with Respiratory Ventilation, Less than 24 Consecutive Hours, Continuous Positive Airway Pressure (ICD-10-PCS; 2025-03-10)
PROC: 4B02XSZ Measurement of Cardiac Pacemaker, External Approach (ICD-10-PCS; 2025-03-11)
PROC: 4A023N7 Measurement of Cardiac Sampling and Pressure, Left Heart, Percutaneous Approach (ICD-10-PCS; 2025-03-14)
PROC: B2111ZZ Fluoroscopy of Multiple Coronary Arteries using Low Osmolar Contrast (ICD-10-PCS; 2025-03-14)
DX: A41.9 Sepsis, unspecified organism (principal); I50.33 Acute on chronic diastolic (congestive) heart failure; J96.01 Acute respiratory failure with hypoxia; J18.9 Pneumonia, unspecified organism; E87.20 Acidosis, unspecified; I45.2 Bifascicular block; I5A Non-ischemic myocardial injury (non-traumatic); R04.2 Hemoptysis; I42.8 Other cardiomyopathies; J44.0 Chronic obstructive pulmonary disease with (acute) lower respiratory infection; J40 Bronchitis, not specified as acute or chronic; E11.9 Type 2 diabetes mellitus without complications; E78.00 Pure hypercholesterolemia, unspecified; I11.0 Hypertensive heart disease with heart failure; I25.10 Atherosclerotic heart disease of native coronary artery without angina pectoris; I48.0 Paroxysmal atrial fibrillation; N28.9 Disorder of kidney and ureter, unspecified; G47.33 Obstructive sleep apnea (adult) (pediatric); M19.90 Unspecified osteoarthritis, unspecified site; D53.9 Nutritional anemia, unspecified; E66.09 Other obesity due to excess calories; I25.5 Ischemic cardiomyopathy; Z96.652 Presence of left artificial knee joint; Z66 Do not resuscitate; I25.2 Old myocardial infarction; Z95.5 Presence of coronary angioplasty implant and graft; Z87.891 Personal history of nicotine dependence; Z79.01 Long term (current) use of anticoagulants; Z79.84 Long term (current) use of oral hypoglycemic drugs; Z88.5 Allergy status to narcotic agent; Z88.8 Allergy status to other drugs, medicaments and biological substances; Z95.3 Presence of xenogenic heart valve; Z68.27 Body mass index [BMI] 27.0-27.9, adult; Z11.52 Encounter for screening for COVID-19; Z86.73 Personal history of transient ischemic attack (TIA), and cerebral infarction without residual deficits; Z95.0 Presence of cardiac pacemaker; Z86.16 Personal history of COVID-19; Z91.148 Patient's other noncompliance with medication regimen for other reason
CPT/HCPCS: 71046; 80048; 80053; 80061; 83605; 83735; 83880; 84443; 84484; 85025; 85027; 87040; 87205; 87449; 87502; 87811; 87899; 93005; 93306; 93458; 94640; 94660; 96374; 96375; 97163; 97530; 99152; 99153; 99291; C1894; Q9950; Q9967

== ENCOUNTER 2025-04-27 01:07 | Emergency (ER) | payer OTHER, SELFPAY ==
[2025-04-27 01:24] VITALS: BP 104/54
[2025-04-27 03:24] VITALS: BP 96/52
--- NOTE | 2025-04-27 03:26 | ED.GENMED ---
ED Provider Triage
<Leonardo Guerrero MD, Resident - Last Filed: 04/27/25 04:37>
-
Patient seen by provider in Triage?: Seen in Triage
History of Present Illness
<Leonardo Guerrero MD, Resident - Last Filed: 04/27/25 04:37>
General
Chief Complaint: Fall
Source: patient
Exam Limitations: none
Time Seen by Provider: 04/27/25 03:02
History of Present Illness
History of Present Illness:
85 year old male who tripped over a curb at 9:30 PM yesterday night. As he was falling, left arm hit the retaining wall and he fell into the [place]. Did not hit his head or lose consciousness. Currently has pain at midshaft area of ulnar area of the
left upper extremity. Pain is severe, constant, sharp. No injury to surrounding areas or pain in cervical region. No numbness, tingling, weakness. patient is on Eliquis for Afib. No previous history of fracture or syncopal episodes.
Past History
<Leonardo Guerrero MD, Resident - Last Filed: 04/27/25 04:37>
Past History
ED Past Medical History: Arrthythmia (Atrial fibrillation, SVT), CAD (Cardiomyopathy, CAD, heart murmur), CHF, COPD, HTN, Hypercholesterolemia, PA, Valvular disease and Psychiatric
ED Past Surgical History: Cardiac (Stents, Mitral valve replacement)
Social History
Tobacco: Former smoker
Alcohol: Occasional
Drug: None
Personal:
Living: with family
Employment: Retired
Review of Systems
<Leonardo Guerrero MD, Resident - Last Filed: 04/27/25 04:37>
Review of Systems
All Other Systems: ROS reviewed and negative except as documented in HPI and ROS
Constitutional: Denies fever
Respiratory: Denies cough
Cardiac: Denies chest pain
ABD/GI: Reports no symptoms
Skin: Reports no symptoms
Neurological: Reports no symptoms
Psychiatric: Reports no symptoms
Phy Exam
<Leonardo Guerrero MD, Resident - Last Filed: 04/27/25 04:37>
General Physical Exam
General Presentation: well appearing and no apparent distress
General Habitus: elderly
Pulmonary Exam
Pulmonary Exam: lungs clear and no respiratory distress
Neurological Exam
Neurological Exam: alert and oriented x3
Musculoskeletal Exam
Musculoskeletal Exam: other ( Ecchymosis on the midshaft lateral area of left upper extremity on inspection, severely tender to palpation, range of motion is normal at elbow and shoulder joint. )
Course
<Leonardo Guerrero MD, Resident - Last Filed: 04/27/25 04:37>
Orders/Labs/Results
Orders:
Orders
04/27/25 01:32
Forearm, Left 2 View [CR Forearm - Left 2 View] Urgent
Comment:
Reason For Exam: fell, + swelling and pain mid forearm
Vital Signs
Initial and Last Documented VS:
Initial Vital Signs
Temp Pulse Resp BP Pulse Ox
37.0 C 82 18 104/54 95
04/27/25 01:24 04/27/25 01:24 04/27/25 01:24 04/27/25 01:24 04/27/25 01:24
Last Documented Vital Signs
Temp Pulse Resp BP Pulse Ox
37.0 C 82 18 96/52 95
04/27/25 01:24 04/27/25 01:24 04/27/25 01:24 04/27/25 03:24 04/27/25 03:36
<Scooby Perry MD - Last Filed: 04/27/25 06:30>
Orders/Labs/Results
Orders:
Orders
04/27/25 01:32
Forearm, Left 2 View [CR Forearm - Left 2 View] Urgent
Comment:
Reason For Exam: fell, + swelling and pain mid forearm
Vital Signs
Initial and Last Documented VS:
Initial Vital Signs
Temp Pulse Resp BP Pulse Ox
37.0 C 82 18 104/54 95
04/27/25 01:24 04/27/25 01:04/27/25 01:04/27/25 01:04/27/25 01:24
Last Documented Vital Signs
Temp Pulse Resp BP Pulse Ox
37.0 C 82 18 96/52 95
04/27/25 01:04/27/25 01:24 04/27/25 01:04/27/25 03:24 04/27/25 03:36
Procedures
<Scooby Perry MD - Last Filed: 04/27/25 06:30>
Splinting/Sling Placement
Left Arm:
Procedure completed by: Scooby Perry MD
Pre-splint extermity exam: neurovascular intact
Type of splint: sugar-tong
Splint material: fiberglass
Splint checked by provider?: Yes
Type of sling: sling fitted
Normal distal neurovascular exam?: Yes
<Leonardo Guerrero MD, Resident - Last Filed: 04/27/25 04:37>
MDM/Problems Addressed
Differential Diagnosis Includes:
fracture of the ulna/ radius/ wrist, contusion of the left upper extremity
MDM/Problems Addressed:
85 year old male with severe pain and ecchymosis in the midshaft area of his left upper extremity.
Xray shows Fracture of the ulna. Will immobilize, administer pain control then orthopedic consult. Patient is hemodynamically stable.
<Leonardo Guerrero MD, Resident - Last Filed: 04/27/25 04:37>
*Pulse Oximetry
SaO2: 95
Oxygen Mode of Delivery: Room air
Patient hypoxic: no
*Critical Care Note
Total Time (30-74mins, 75-104mins- exclusive of procedures): Not Applicable
<Leonardo Guerrero MD, Resident - Last Filed: 04/27/25 04:37>
Update Note
Update Note:
- Placed patient in a sugar tong splint to immobilize arm with instructions to see Dr. Gutierrez for further evaluation
- Prescribed oxycodone for pain relief
ED Attending Note
<Leonardo Guerrero MD, Resident - Last Filed: 04/27/25 04:37>
-
Portions of this chart may have been created with voice recognition software.� Occasional wrong word or��sound alike� substitutions may have occurred due to the inherent limitations of voice recognition software.
<Scooby Perry MD - Last Filed: 04/27/25 06:30>
ED Attending Note
Patient seen and examined by attending physician: Yes
I performed a history and physical exam of patient and discussed management with resident, I reviewed resident's note and agree with documented findings and plan of care.: Yes
ED Attending Note:
I have seen and evaluated the patient with a [id number] encounter. I have spoken to the resident and involved in the medical history, the physical exam, medical decision making.
Evaluation and management service: agree unless noted differently below.
Results interpretation: agree unless noted differently below.
Focused HPI: 85-year-old male with history as noted presents for evaluation of a left arm injury. Patient reports that he tripped earlier this evening and fell, struck his forearm on a nearby barrier. He did not hit his head and is at bedside
and confirms that she saw the fall and he did not have any head strike. He injured his forearm but does not have any other injuries. Denies any neck pain, back pain, rib pain, pain in the lower extremities. Has been ambulatory since the fall. He
is on Eliquis for A-fib.
Physical exam: Awake and alert not in distress. Vital signs acceptable. He has no signs of trauma to the head. No tenderness of the cervical spine and good range of motion without pain. No tenderness in the thoracic or lumbar spine and no signs
of trauma to the back or flank. No rib tenderness. No abdominal tenderness. Lower extremities atraumatic and he moves them freely without pain. On exam of the left forearm he has bruising to left mid forearm as well as tenderness in this area.
He has a strong left radial pulse. No tenderness in the shoulder or elbow on the left.
Medical Decision Makin-year-old male presents to the ER for evaluation after a minor fall with left forearm injury. Vitals and exam as above. X-ray of the forearm reviewed by me shows ulnar fracture midshaft. Placed in a sugar-tong splint by
me. Discharged with referral to orthopedist for outpatient follow-up. Advised to take Tylenol as needed for pain. Because of his Eliquis use cannot use NSAIDs, was sent a short prescription for opioids only to use as needed if pain breaks through
Tylenol. Patient and comfortable with follow-up plan and return precautions.
Discharge Plan
Departure
Patient Disposition: Home (Routine Discharge)
Date of Disposition: 04/27/25
Time of Disposition: 04:17
Patient with high blood pressure during this ER visit?: No
Condition: Fair
Discharge Problem:
Ulnar shaft fracture
Instructions: Forearm fracture, Splint care - ED ([place])
Prescriptions:
New
oxycodone 5 mg tablet
5 mg PO TID PRN (Reason: Pain) Qty: 5 0RF
No Action
famotidine [Pepcid] 40 mg Tablet
40 mg PO DAILY
buspirone 15 mg Tablet
15 mg PO TID
Jardiance 10 mg Tablet
10 mg PO DAILY
therapeutic multivitamin Tablet
1 tab PO DAILY Qty: 0
tolterodine 2 mg Tablet
2 mg PO BID
azelastine 137 mcg (0.1 %) Aerosol,[place]
1 spray INTRANASAL BID
escitalopram oxalate [Lexapro] 20 mg Tablet
20 mg PO DAILY
rosuvastatin 40 mg Tablet
40 mg PO HS
albuterol sulfate 90 mcg/actuation Hfa Aerosol Inhaler
2 puff INHALATION R Q6HPRN PRN (Reason: sob/wheezing)
lorazepam 0.5 mg Tablet
0.5 mg PO DAILYPRN PRN (Reason: anxiety) Qty: 3 0RF
azelastine 0.05 % Drops
1 drp OPHTHALMIC (EYE) BID
Rx Instructions:
OU
spironolactone 25 mg Tablet
12.5 mg PO DAILY Qty: 30 1RF
Eliquis 5 mg Tablet
5 mg PO BID Qty: 60 1RF
aspirin 81 mg Tablet,Delayed Release (Dr/Ec)
81 mg PO DAILY Qty: 30 1RF
carvedilol 3.125 mg Tablet
3.125 mg PO BID Qty: 60 1RF
sacubitril-valsartan [Entresto] 49-51 mg Tablet
1 tab PO BID Qty: 60 1RF
furosemide [Lasix] 40 mg tablet
40 mg PO DAILY Qty: 30 1RF
guaifenesin 600 mg Tablet Extended Release 12hr
600 mg PO Q12 Qty: 14 0RF
Referrals:
Dread Arango MD [Family Provider] - Follow up in 5-7 days
Don Gutierrez MD [Active, Orthopedics] - Follow up in 2-3 days
Activity Restrictions/Additional Instructions:
Thank you for visiting the Emergency Department at [facility].
1. Please schedule a follow up appointment as directed. Call first thing tomorrow morning to make an appointment.
2. If indicated, please take your medications as instructed and indicated on discharge paperwork.
3. If any of your symptoms do not improve, or persist, or become more severe within 6-12 hours, please return to the emergency department for further care.
4. Please return to the emergency department if you develop a headache, neck pain/stiffness, fever greater than 100.4F, chest pain, shortness of breath, persistent nausea, vomiting, slurred speech, difficulty walking, numbness/tingling, weakness,
signs of infection or any other symptoms that are worrisome to you.
Please call [phone] if you have any questions.
Interventions
Interventions:
*Risk Screen - Suicide Last Done: 04/27/25 01:24
*General Assessment Last Done: 04/27/25 03:23
*Neglect/Abuse Screening Last Done: 04/27/25 05:26
*ED- Fall Risk Assessment Last Done: 04/27/25 03:23
*ED COVID-19 Vaccine History Last Done: 04/27/25 03:23
*Nursing Disposition Last Done: 04/27/25 05:26
ED-Musculoskeletal Assessment Last Done: 04/27/25 03:23
ED- Neurological Assessment Last Done: 04/27/25 03:23
ED-Skin Assessment Last Done: 04/27/25 03:23
Discharge Date and Time
Discharge Date/Time: 04/27/25 05:26
Print Language: AMHARIC
[2025-04-27 03:36] VITALS: BMI 30.1
== END 2025-04-27 05:26 | disposition home or self-care (01) ==
LOC: EMR 01:07
PROVIDERS: EMERGENCY PHYSICIAN Emergency Medicine; FAMILY PHYSICIAN Internal Medicine
DX: S52.602A Unspecified fracture of lower end of left ulna, initial encounter for closed fracture (principal); W01.198A Fall on same level from slipping, tripping and stumbling with subsequent striking against other object, initial encounter; I25.10 Atherosclerotic heart disease of native coronary artery without angina pectoris; I48.91 Unspecified atrial fibrillation; I42.9 Cardiomyopathy, unspecified; I11.0 Hypertensive heart disease with heart failure; I50.9 Heart failure, unspecified; E78.00 Pure hypercholesterolemia, unspecified; R01.1 Cardiac murmur, unspecified; I25.2 Old myocardial infarction; J44.9 Chronic obstructive pulmonary disease, unspecified; Z79.01 Long term (current) use of anticoagulants; Z79.82 Long term (current) use of aspirin; Z95.2 Presence of prosthetic heart valve; Z95.5 Presence of coronary angioplasty implant and graft; Z87.891 Personal history of nicotine dependence
CPT/HCPCS: 99283; 73090

== ENCOUNTER 2025-05-01 11:22 | Day surgery (SDC) | payer OTHER, SELFPAY ==
--- NOTE | 2025-04-30 15:38 | PTCARENOTE ---
During preoperative nursing phone interview, pt states that last dose of Jardiance was on 04/30/25 and last dose of Eliquis was on 04/29/25. Dr. Singh and Dr. Mulligan notified. No further orders at this time.
[2025-05-01] VITALS (7 sets, daily range): BP systolic 93–120; BP diastolic 41–93; BMI 28.0
[2025-05-01] MEDS: CELEBREX 200 MG PO (11:50)
[2025-05-01] MEDS: TYLENOL 1000 MG PO (11:50)
[2025-05-01] MEDS: NORMOSOL-R/PLASMALYTE-A 1000 IV (11:50)
[2025-05-01 11:57] LABS: Hematocrit 32.4 % (39.0-52.0); Hemoglobin 10.6 g/dL (13.0-18.0); Mean Corp Hgb Conc. 32.7 g/dL (33.0-37.0); Mean Corpuscular Volume 100.6 fL (80.0-94.0); Platelet Count 184 10^3/uL (130-400); Red Cell Dist. Width 14.5 % (11.5-14.5)
[2025-05-01 12:06] LABS: Blood Urea Nitrogen 49 mg/dl (9-20); Estimated Creatinine Clearance 33 ml/min
[2025-05-01 13:38] LABS: Glucose - Point of Care 119 mg/dl (70-99)
== END 2025-05-01 15:10 | disposition home or self-care (01) ==
LOC: SDS 11:22
PROVIDERS: ATTENDING PHYSICIAN Orthopaedic Surgery Hand Surgery
DX: S52.292A Other fracture of shaft of left ulna, initial encounter for closed fracture (principal); W10.1XXA Fall (on)(from) sidewalk curb, initial encounter
CPT/HCPCS: 25545; C1713; 82565; 82962; 84520; 85027; 93005

== ENCOUNTER 2025-05-17 20:00 | Emergency (ER) | payer OTHER, SELFPAY ==
[2025-05-17 20:15] VITALS: BP 99/53
--- NOTE | 2025-05-18 00:25 | ED.GENMED ---
History of Present Illness
General
Chief Complaint: Fall
Source: patient and spouse
Exam Limitations: none
Time Seen by Provider: 05/18/25 00:24
Nursing documentation reviewed up to this point in time: agreed with
History of Present Illness
History of Present Illness:
Note:
CHIEF COMPLAINT(S)
Fall with shoulder injury.
HISTORY OF PRESENT ILLNESS
The patient is an 85-year-old male who presented following a fall that occurred on . The patient reports that the fall occurred when he caught the side of a car, leading to a mild impact on his shoulder and a scrape to his head. The patient
described the injury as not resulting from a severe impact. He also has a previous surgical history on the same shoulder from 2019, performed by Dr. Kim, a physician at [facility]. Before the incident, he could usually lift his shoulder without
difficulty, but now reports difficulty with the movement. No significant head trauma was reported, and a prior CT scan of the head was interpreted as normal. There is concern for a possible strain or tear, pending radiographic evaluation.
PAST SURGICAL HISTORY
The patient had shoulder surgery in 2019.
PHYSICAL EXAM
General: Alert, no acute distress.
Skin: Warm, dry.
Head: Normocephalic, atraumatic, with a minor scrape present.
Neck: Supple, trachea midline.
Eye Ears, nose, mouth and throat: Oral mucosa moist.
Cardiovascular: Normal peripheral perfusion, No edema.
Respiratory: Respirations are non-labored.
Gastrointestinal: Abdomen nondistended.
Back: Normal range of motion, normal alignment.
Musculoskeletal: Normal range of motion, except for limited motion in the left shoulder due to pain.
Neurological: Alert and oriented to person, place, time, and situation, no focal neurological deficit observed.
Psychiatric: Cooperative, appropriate mood & affect.
PLAN
1. X-ray of the shoulder to assess for any fractures or other abnormalities.
2. Review CT scan of the head, which was reported as normal.
3. Consider potential for strain or tear based on radiographic findings, and evaluate further management options thereafter.
DIFFERENTIAL DIAGNOSIS
The Differential Diagnosis includes, in no particular order and is not limited to:
1. Shoulder strain
2. Rotator cuff tear
3. Shoulder dislocation
4. Fracture of the humerus
5. Bursitis
6. Tendonitis
7. Adhesive capsulitis
8. Contusion
9. Osteoarthritis exacerbation
10. Labral tear
CARE-UPDATE
05/18/25 - 00:57
Reviewed by shoulder expert from urgent care, confirming no dislocation or fracture; imaging indicates no acute abnormalities. Patient is stable and cleared for discharge.
Disposition:
SUMMARY OF ENCOUNTER
The patient, an 85-year-old male, presented to the emergency department following a fall leading to shoulder injury. The fall resulted in a mild impact on the shoulder and a scrape to the head. The previous surgical history on the left shoulder was
noted, and after independent review, imaging showed no acute abnormalities such as dislocation or fracture. The patient presented with difficulty in shoulder movement due to pain, possibly indicating a strain or tear.
DISPOSITION
The patient was discharged home.
ASSESSMENT
Scalp abrasion and left shoulder strain.
PLAN
1. Discharge with instruction to follow up with orthopedics.
2. Return precautions were given in case of worsening symptoms or development of new symptoms.
3. Patient education on home care for abrasion and managing shoulder strain.
INDEPENDENT REVIEW OF LABS AND INTERPRETATION OF TESTS
- My independent review of the head CT scan indicates it was normal.
- My independent interpretation of the shoulder imaging shows no dislocation or fracture.
PATIENT EDUCATION AND COUNSELING
The patient was counseled on return precautions, managing symptoms of strain, and the importance of follow-up with orthopedic specialists for further evaluation and management.
FOLLOW-UP INSTRUCTIONS
The patient was instructed to follow up with orthopedics for further management evaluation. Return to the emergency department if symptoms worsen or new symptoms develop.
MEDICAL DECISION MAKING
- Complexity of Data Reviewed: Chronic conditions affecting care include a history of shoulder surgery. Differential diagnoses such as shoulder strain, rotator cuff tear, bursitis, and tendonitis were considered.
- Data:
Category 1:
- My independent interpretation of the shoulder imaging indicated no dislocation or fracture.
Category 3:
- Discussion of management with a shoulder expert confirmed no dislocation or fracture.
- Risk:
Consideration of Admission/Observation: Escalation of care including admission/observation was considered given the complexity and risk of the patients presenting complaint, exam findings, and underlying comorbidities. However, ultimately, I feel
the patient is safe for outpatient management with close follow-up. Reasoning: Work-up reassuring, does not reveal any acute life/organ-threatening processes, patients symptoms well controlled upon reevaluation, reexamination is reassuring, vitals
are stable, patient agreeable with discharge, reliable for follow-up.
DIAGNOSIS
- Scalp abrasion (ICD-10: S00.81XA)
- Left shoulder strain (ICD-10: S46.019A)
Past History
Past History
ED Past Medical History: Arrthythmia (Atrial fibrillation, SVT), CAD (Cardiomyopathy, CAD, heart murmur), CHF, COPD, HTN, Hypercholesterolemia, DC, Valvular disease and Psychiatric
ED Past Surgical History: Cardiac (Stents, Mitral valve replacement)
Social History
Tobacco: Former smoker
Alcohol: Occasional
Drug: None
Personal:
Living: with family
Employment: Retired
Phy Exam
Physical Exam
Physical Exam:
.
Course
Orders/Labs/Results
Orders:
Orders
05/17/25 20:15
CT Head W/o Iv Contrast Urgent
Comment:
Reason For Exam: head injury, takes elliquis
05/18/25 01:10
Sling Left-Treatment ONCE
Acetaminophen [Tylenol] 650 mg PO NOW STA
Vital Signs
Initial and Last Documented VS:
Initial Vital Signs
Temp Pulse Resp Pulse Ox
97.7 F 60 19 95
05/17/25 20:09 05/17/25 20:09 05/17/25 20:09 05/17/25 20:09
Last Documented Vital Signs
Temp Pulse Resp BP Pulse Ox
98.4 F 64 18 115/54 94
05/18/25 00:40 05/18/25 00:40 05/18/25 00:40 05/18/25 00:40 05/18/25 00:40
*Pulse Oximetry
SaO2: 95
Oxygen Mode of Delivery: Room air
Patient hypoxic: no
*Critical Care Note
Total Time (30-74mins, 75-104mins- exclusive of procedures): Not Applicable
ED Attending Note
-
Portions of this chart may have been created with voice recognition software.� Occasional wrong word or��sound alike� substitutions may have occurred due to the inherent limitations of voice recognition software.
Discharge Plan
Departure
Patient Disposition: Home (Routine Discharge)
Date of Disposition: 05/18/25
Time of Disposition: 00:58
Patient with high blood pressure during this ER visit?: No
Condition: Good
Discharge Problem:
Abrasion of scalp, Left shoulder strain, Fall
Instructions: Head Injury in Adults (DC), Preventing falls in adults, Shoulder pain - ED (DC)
Prescriptions:
No Action
famotidine [Pepcid] 40 mg Tablet
40 mg PO DAILY
buspirone 15 mg Tablet
15 mg PO TID
Jardiance 10 mg Tablet
10 mg PO DAILY
therapeutic multivitamin Tablet
1 tab PO DAILY Qty: 0
tolterodine 2 mg Tablet
2 mg PO BID
escitalopram oxalate [Lexapro] 20 mg Tablet
20 mg PO DAILY
rosuvastatin 40 mg Tablet
40 mg PO HS
albuterol sulfate 90 mcg/actuation Hfa Aerosol Inhaler
2 puff INHALATION R Q6HPRN PRN (Reason: sob/wheezing)
lorazepam 0.5 mg Tablet
0.5 mg PO DAILYPRN PRN (Reason: anxiety) Qty: 3 0RF
carvedilol 3.125 mg Tablet
3.125 mg PO BID Qty: 60 1RF
furosemide [Lasix] 40 mg tablet
40 mg PO DAILY Qty: 30 1RF
hydrocodone-acetaminophen 5-325 mg tablet
1 tab PO Q8H PRN (Reason: Pain) Qty: 10 0RF
sacubitril-valsartan [Entresto] 97-103 mg Tablet
0.5 tab PO BID
Rx Instructions:
0.5 TAB BID PER PT
prednisolone acetate (PF) 1 % Drops,Suspension
1 drp OPHTHALMIC (EYE) DAILY
Eliquis 5 mg tablet
5 mg PO BID
Referrals:
Dread Arango MD [Family Provider]
Kevin Wilson MD [Active, Orthopedics] - Call in 1-3 days for appt
Interventions
Interventions:
*Risk Screen - Suicide Last Done: 05/17/25 20:14
*General Assessment Last Done: 05/17/25 20:14
*Neglect/Abuse Screening Last Done: 05/17/25 20:14
*ED- Fall Risk Assessment Last Done: 05/18/25 00:44
*ED COVID-19 Vaccine History Last Done: 05/17/25 20:14
*ED Influenza Vaccine History Last Done: 05/17/25 20:14
Discharge Date and Time
Print Language: SAMI
[2025-05-18 00:40] VITALS: BP 115/54; BMI 28.2
[2025-05-18] MEDS: TYLENOL 650 MG PO (01:24)
== END 2025-05-18 01:38 | disposition home or self-care (01) ==
LOC: EMR 20:00
PROVIDERS: EMERGENCY PHYSICIAN Emergency Medicine; FAMILY PHYSICIAN Internal Medicine
DX: S00.01XA Abrasion of scalp, initial encounter (principal); S46.912A Strain of unspecified muscle, fascia and tendon at shoulder and upper arm level, left arm, initial encounter; W18.30XA Fall on same level, unspecified, initial encounter; I25.10 Atherosclerotic heart disease of native coronary artery without angina pectoris; I42.9 Cardiomyopathy, unspecified; I48.91 Unspecified atrial fibrillation; I11.0 Hypertensive heart disease with heart failure; I50.9 Heart failure, unspecified; E78.00 Pure hypercholesterolemia, unspecified; R01.1 Cardiac murmur, unspecified; I25.2 Old myocardial infarction; J44.9 Chronic obstructive pulmonary disease, unspecified; Z79.01 Long term (current) use of anticoagulants; Z95.2 Presence of prosthetic heart valve; Z95.5 Presence of coronary angioplasty implant and graft; Z87.891 Personal history of nicotine dependence
CPT/HCPCS: 99284; 70450